=== PATIENT | male | born 1960 | race Caucasian/White ===

== ENCOUNTER 2020-08-13 08:08 | Day surgery (SDC) | payer OTHER ==
[2020-08-12 15:41] VITALS: BMI 27.3
[2020-08-13 08:40] VITALS: TEMP 97.7
[2020-08-13] MEDS ORDERED: KETAMINE HCL 500 MG/10 ML VIAL ONE (09:14)
[2020-08-13 10:41] VITALS: BP 138/79; PULSE 61
== END 2020-08-13 11:40 | disposition home or self-care (01) ==
LOC: FECT 08:08
PROVIDERS: ATTEND Psychiatry & Neurology Psychiatry
PROC: GZB4ZZZ Other Electroconvulsive Therapy (ICD-10-PCS; principal; 2020-08-13 09:00)
DX: F32.9 Major depressive disorder, single episode, unspecified (principal)
CPT/HCPCS: 90870; 94760; C9803; U0003

== ENCOUNTER 2020-08-16 08:37 | Day surgery (SDC) | payer OTHER ==
[2020-08-13 14:33] VITALS: BMI 27.3
[2020-08-16] MEDS ORDERED: KETAMINE HCL 500 MG/10 ML VIAL ONE (10:17)
[2020-08-16 11:36] VITALS: TEMP 98.1
[2020-08-16 11:41] VITALS: BP 144/94; PULSE 61
== END 2020-08-16 11:45 | disposition home or self-care (01) ==
LOC: FECT 08:37
PROVIDERS: ATTEND Psychiatry & Neurology Psychiatry
PROC: GZB4ZZZ Other Electroconvulsive Therapy (ICD-10-PCS; principal; 2020-08-16 11:00)
DX: F32.9 Major depressive disorder, single episode, unspecified (principal)
CPT/HCPCS: 90870; 94760; C9803; U0003

== ENCOUNTER 2020-08-19 10:16 | Day surgery (SDC) | payer OTHER ==
[2020-08-18 14:22] VITALS: BMI 27.3
[2020-08-19] MEDS ORDERED: KETAMINE HCL 500 MG/10 ML VIAL ONE (11:41)
[2020-08-19] MEDS ORDERED: METOPROLOL TARTRATE 5 MG/5 ML VIAL IVPUSH ONE (12:20)
[2020-08-19 14:01] VITALS: TEMP 98
[2020-08-19 14:06] VITALS: BP 160/82; PULSE 56
== END 2020-08-19 13:40 | disposition home or self-care (01) ==
LOC: FECT 10:16
PROVIDERS: ATTEND Psychiatry & Neurology Psychiatry
PROC: GZB4ZZZ Other Electroconvulsive Therapy (ICD-10-PCS; principal; 2020-08-19 11:00)
DX: F32.9 Major depressive disorder, single episode, unspecified (principal)
CPT/HCPCS: 90870; 94760

== ENCOUNTER 2020-08-20 06:47 | Day surgery (SDC) | payer OTHER ==
[2020-08-19 12:04] VITALS: BMI 27.3
[2020-08-20 07:18] VITALS: TEMP 97.6
[2020-08-20] MEDS ORDERED: KETAMINE HCL 500 MG/10 ML VIAL ONE (07:43)
[2020-08-20 09:39] VITALS: BP 129/81; PULSE 66
== END 2020-08-20 09:20 | disposition home or self-care (01) ==
LOC: FECT 06:47
PROVIDERS: ATTEND Psychiatry & Neurology Psychiatry
PROC: GZB4ZZZ Other Electroconvulsive Therapy (ICD-10-PCS; principal; 2020-08-20 08:00)
DX: F32.9 Major depressive disorder, single episode, unspecified (principal)
CPT/HCPCS: 90870; 94760; C9803; U0003

== ENCOUNTER 2020-08-23 09:30 | Day surgery (SDC) | payer OTHER ==
[2020-08-19 12:55] VITALS: BMI 27.3
[2020-08-23] MEDS ORDERED: KETAMINE HCL 500 MG/10 ML VIAL ONE (11:14)
[2020-08-23] MEDS ORDERED: PROPOFOL 20 ML ONE (11:43)
[2020-08-23 13:26] VITALS: BP 154/76; PULSE 65; TEMP 97.9
== END 2020-08-23 13:26 | disposition home or self-care (01) ==
LOC: FECT 09:30
PROVIDERS: ATTEND Psychiatry & Neurology Psychiatry
PROC: GZB4ZZZ Other Electroconvulsive Therapy (ICD-10-PCS; principal; 2020-08-23 10:30)
DX: F32.9 Major depressive disorder, single episode, unspecified (principal)
CPT/HCPCS: 90870; 94760; C9803; U0003

== ENCOUNTER 2020-08-26 09:37 | Day surgery (SDC) | payer OTHER ==
[2020-08-24 18:10] VITALS: BMI 27.3
[2020-08-26 10:00] VITALS: TEMP 98
[2020-08-26] MEDS ORDERED: KETAMINE HCL 200 MG/20 ML VIAL ONE (10:21)
[2020-08-26] MEDS ORDERED: SUCCINYLCHOLINE CHLORIDE 200 MG/10 ML SYRINGE ONE (10:21)
[2020-08-26] MEDS ORDERED: PROPOFOL 20 ML ONE (10:21)
[2020-08-26] MEDS ORDERED: ONDANSETRON 4 MG/2 ML VIAL ONE (10:23)
[2020-08-26 11:46] VITALS: BP 145/90; PULSE 61
== END 2020-08-26 11:40 | disposition home or self-care (01) ==
LOC: FECT 09:37
PROVIDERS: ATTEND Psychiatry & Neurology Psychiatry
PROC: GZB4ZZZ Other Electroconvulsive Therapy (ICD-10-PCS; principal; 2020-08-26 10:30)
DX: F32.9 Major depressive disorder, single episode, unspecified (principal)
CPT/HCPCS: 90870; 94760; C9803; U0003

== ENCOUNTER 2020-08-30 08:24 | Day surgery (SDC) | payer OTHER ==
[2020-08-26 12:03] VITALS: BMI 27.3
[2020-08-30] MEDS ORDERED: KETAMINE HCL 500 MG/10 ML VIAL ONE (09:21)
[2020-08-30 11:03] VITALS: TEMP 97.5
[2020-08-30 11:04] VITALS: BP 140/88; PULSE 58
== END 2020-08-30 11:15 | disposition home or self-care (01) ==
LOC: FECT 08:24
PROVIDERS: ATTEND Psychiatry & Neurology Psychiatry
PROC: GZB4ZZZ Other Electroconvulsive Therapy (ICD-10-PCS; principal; 2020-08-30 09:30)
DX: F33.2 Major depressive disorder, recurrent severe without psychotic features (principal)
CPT/HCPCS: 90870; 94760; C9803; U0003

== ENCOUNTER 2020-09-02 06:47 | Day surgery (SDC) | payer OTHER ==
[2020-08-27 17:31] VITALS: BMI 27.3
[2020-09-02] MEDS ORDERED: PROPOFOL 20 ML ONE (07:59)
[2020-09-02] MEDS ORDERED: KETAMINE HCL 500 MG/10 ML VIAL ONE (07:59)
[2020-09-02] MEDS ORDERED: SUCCINYLCHOLINE CHLORIDE 200 MG/10 ML SYRINGE ONE (07:59)
[2020-09-02 08:57] VITALS: TEMP 98.2
[2020-09-02 09:27] VITALS: BP 132/82; PULSE 62
[2020-09-02] MEDS ORDERED: ONDANSETRON 4 MG/2 ML VIAL IVPUSH PRN (10:44)
[2020-09-02] MEDS ORDERED: LACTATED RINGERS SOLUTION 1,000 ML IV SCH (10:45)
== END 2020-09-02 09:29 | disposition home or self-care (01) ==
LOC: FECT 06:47
PROVIDERS: ATTEND Psychiatry & Neurology Psychiatry
PROC: GZB4ZZZ Other Electroconvulsive Therapy (ICD-10-PCS; principal; 2020-09-02 09:30)
DX: F32.9 Major depressive disorder, single episode, unspecified (principal)
CPT/HCPCS: 90870; 94760; C9803; U0003

== ENCOUNTER 2020-09-06 07:09 | Day surgery (SDC) | payer OTHER ==
[2020-08-31 11:04] VITALS: BMI 27.3
[~2020-09-06 07:09] MED LIST: ACETAMINOPHEN 325 MG TABLET (FP) PO PRN; LACTATED RINGERS SOLUTION 1,000 ML IV SCH; PROMETHAZINE HCL 25 MG/1 ML VIAL IVPUSH PRN
[2020-09-06] MEDS ORDERED: KETAMINE HCL 500 MG/10 ML VIAL ONE (08:51)
[2020-09-06] MEDS ORDERED: ONDANSETRON 4 MG/2 ML VIAL ONE (08:57)
[2020-09-06 10:19] VITALS: TEMP 98
[2020-09-06 10:27] VITALS: BP 141/80; PULSE 50
== END 2020-09-06 10:35 | disposition home or self-care (01) ==
LOC: FECT 07:09
PROVIDERS: ATTEND Psychiatry & Neurology Psychiatry
PROC: GZB4ZZZ Other Electroconvulsive Therapy (ICD-10-PCS; principal; 2020-09-06 08:00)
DX: F32.9 Major depressive disorder, single episode, unspecified (principal)
CPT/HCPCS: 90870; 94760; C9803; U0003

== ENCOUNTER 2020-09-09 06:50 | Day surgery (SDC) | payer OTHER ==
[2020-09-01 13:54] VITALS: BMI 27.3
[2020-09-09] MEDS ORDERED: KETAMINE HCL 500 MG/10 ML VIAL ONE (07:41)
[2020-09-09 09:57] VITALS: TEMP 97.8
[2020-09-09 10:00] VITALS: BP 130/86; PULSE 56
[2020-09-09] MEDS ORDERED: ONDANSETRON 4 MG/2 ML VIAL IVPUSH PRN (11:11)
[2020-09-09] MEDS ORDERED: LACTATED RINGERS SOLUTION 1,000 ML IV SCH (11:15)
== END 2020-09-09 10:02 | disposition home or self-care (01) ==
LOC: FECT 06:50
PROVIDERS: ATTEND Psychiatry & Neurology Psychiatry
PROC: GZB4ZZZ Other Electroconvulsive Therapy (ICD-10-PCS; principal; 2020-09-09 07:30)
DX: F33.2 Major depressive disorder, recurrent severe without psychotic features (principal)
CPT/HCPCS: 90870; 94760; C9803; U0003

== ENCOUNTER 2020-09-13 07:37 | Day surgery (SDC) | payer OTHER ==
[2020-09-06 14:12] VITALS: BMI 27.3
[2020-09-13] MEDS ORDERED: KETAMINE HCL 500 MG/10 ML VIAL ONE (09:35)
[2020-09-13] MEDS ORDERED: GLYCOPYRROLATE 0.2 MG/1 ML VIAL ONE (10:08)
[2020-09-13 11:18] VITALS: TEMP 97.8
[2020-09-13 11:53] VITALS: BP 144/76; PULSE 55
== END 2020-09-13 11:45 | disposition home or self-care (01) ==
LOC: FECT 07:37
PROVIDERS: ATTEND Psychiatry & Neurology Psychiatry
PROC: GZB4ZZZ Other Electroconvulsive Therapy (ICD-10-PCS; principal; 2020-09-13 07:30)
DX: F32.9 Major depressive disorder, single episode, unspecified (principal)
CPT/HCPCS: 90870; 94760; C9803; U0003

== ENCOUNTER 2020-09-17 06:31 | Day surgery (SDC) | payer OTHER ==
[2020-09-13 11:55] VITALS: BMI 27.3
[2020-09-17] MEDS ORDERED: KETAMINE HCL 500 MG/10 ML VIAL ONE (06:52)
[2020-09-17 06:55] VITALS: TEMP 97.8
[2020-09-17] MEDS ORDERED: GLYCOPYRROLATE 0.2 MG/1 ML VIAL ONE (07:14)
[2020-09-17] MEDS ORDERED: PROPOFOL 20 ML ONE (07:15)
[2020-09-17] MEDS ORDERED: SUCCINYLCHOLINE CHLORIDE 200 MG/10 ML SYRINGE ONE ×2 (07:16→07:47)
[2020-09-17 09:11] VITALS: BP 135/84; PULSE 59
== END 2020-09-17 08:40 | disposition home or self-care (01) ==
LOC: FECT 06:31
PROVIDERS: ATTEND Psychiatry & Neurology Psychiatry
PROC: GZB4ZZZ Other Electroconvulsive Therapy (ICD-10-PCS; principal; 2020-09-17 07:00)
DX: F32.9 Major depressive disorder, single episode, unspecified (principal)
CPT/HCPCS: 90870; 94760; C9803; U0003

== ENCOUNTER 2020-09-23 07:07 | Day surgery (SDC) | payer OTHER ==
[2020-09-17 07:20] VITALS: BMI 27.3
[2020-09-23 07:39] VITALS: TEMP 98.1
[2020-09-23] MEDS ORDERED: SUCCINYLCHOLINE CHLORIDE 200 MG/10 ML SYRINGE ONE ×2 (08:49)
[2020-09-23] MEDS ORDERED: KETAMINE HCL 500 MG/10 ML VIAL ONE (08:49)
[2020-09-23] MEDS ORDERED: PROPOFOL 20 ML ONE (08:49)
[2020-09-23] MEDS ORDERED: ONDANSETRON 4 MG/2 ML VIAL ONE (09:03)
[2020-09-23 10:27] VITALS: BP 148/86; PULSE 60
== END 2020-09-23 10:29 | disposition home or self-care (01) ==
LOC: FECT 07:07
PROVIDERS: ATTEND Psychiatry & Neurology Psychiatry
PROC: GZB4ZZZ Other Electroconvulsive Therapy (ICD-10-PCS; principal; 2020-09-23 08:30)
DX: F32.9 Major depressive disorder, single episode, unspecified (principal)
CPT/HCPCS: 90870; 94760; C9803; U0003

== ENCOUNTER 2020-09-28 07:12 | Day surgery (SDC) | payer OTHER ==
[2020-09-17 07:23] VITALS: BMI 27.3
[2020-09-28] MEDS ORDERED: PROPOFOL 20 ML ONE (08:35)
[2020-09-28] MEDS ORDERED: KETAMINE HCL 500 MG/10 ML VIAL ONE (08:36)
[2020-09-28 09:48] VITALS: TEMP 97.5
[2020-09-28 09:55] VITALS: BP 139/89; PULSE 53
== END 2020-09-28 10:00 | disposition home or self-care (01) ==
LOC: FECT 07:12
PROVIDERS: ATTEND Psychiatry & Neurology Psychiatry
PROC: GZB4ZZZ Other Electroconvulsive Therapy (ICD-10-PCS; principal; 2020-09-28 08:00)
DX: F32.9 Major depressive disorder, single episode, unspecified (principal)
CPT/HCPCS: 90870; 94760; C9803; U0003

== ENCOUNTER 2020-09-30 07:34 | Day surgery (SDC) | payer OTHER ==
[2020-09-23 15:51] VITALS: BMI 27.3
[2020-09-30] MEDS ORDERED: KETAMINE HCL 500 MG/10 ML VIAL ONE (08:30)
[2020-09-30 09:39] VITALS: TEMP 97.6
[2020-09-30 10:06] VITALS: PULSE 56
[2020-09-30 10:18] VITALS: BP 139/62
== END 2020-09-30 10:18 | disposition home or self-care (01) ==
LOC: FECT 07:34
PROVIDERS: ATTEND Psychiatry & Neurology Psychiatry
PROC: GZB4ZZZ Other Electroconvulsive Therapy (ICD-10-PCS; principal; 2020-09-30 08:30)
DX: F31.89 Other bipolar disorder (principal)
CPT/HCPCS: 90870; 94760; C9803; U0003

== ENCOUNTER 2020-10-04 08:11 | Day surgery (SDC) | payer OTHER ==
[2020-10-04 08:34] VITALS: BMI 27.3
[2020-10-04] MEDS ORDERED: KETAMINE HCL 500 MG/10 ML VIAL ONE (08:45)
[2020-10-04 10:00] VITALS: TEMP 97.8
[2020-10-04 10:50] VITALS: BP 124/72; PULSE 62
== END 2020-10-04 10:40 | disposition home or self-care (01) ==
LOC: FECT 08:11
PROVIDERS: ATTEND Psychiatry & Neurology Psychiatry
PROC: GZB4ZZZ Other Electroconvulsive Therapy (ICD-10-PCS; principal; 2020-10-04 09:00)
DX: F32.9 Major depressive disorder, single episode, unspecified (principal)
CPT/HCPCS: 90870; 94760; C9803; U0003

== ENCOUNTER 2020-10-07 08:42 | Day surgery (SDC) | payer OTHER ==
[2020-10-07 09:09] VITALS: BMI 27.3
[2020-10-07] MEDS ORDERED: KETAMINE HCL 500 MG/10 ML VIAL ONE (09:52)
[2020-10-07] MEDS ORDERED: SUCCINYLCHOLINE CHLORIDE 200 MG/10 ML SYRINGE ONE (09:55)
[2020-10-07] MEDS ORDERED: PROPOFOL 20 ML ONE (09:55)
[2020-10-07] MEDS ORDERED: ONDANSETRON 4 MG/2 ML VIAL ONE (09:56)
[2020-10-07 12:32] VITALS: PULSE 50; TEMP 97.5
[2020-10-07] MEDS ORDERED: ACETAMINOPHEN 325 MG TABLET (FP) PO PRN (13:07)
[2020-10-07] MEDS ORDERED: LACTATED RINGERS SOLUTION 1,000 ML IV SCH (13:15)
[2020-10-07 13:36] VITALS: BP 115/74
== END 2020-10-07 11:45 | disposition home or self-care (01) ==
LOC: FECT 08:42
PROVIDERS: ATTEND Psychiatry & Neurology Psychiatry
PROC: GZB4ZZZ Other Electroconvulsive Therapy (ICD-10-PCS; principal; 2020-10-07 09:30)
DX: F31.9 Bipolar disorder, unspecified (principal)
CPT/HCPCS: 90870; 94760; C9803; U0003

== ENCOUNTER 2020-10-14 07:11 | Day surgery (SDC) | payer OTHER ==
[2020-10-14 07:45] VITALS: BMI 27.3
[2020-10-14] MEDS ORDERED: KETAMINE HCL 500 MG/10 ML VIAL ONE (08:41)
[2020-10-14 09:47] VITALS: PULSE 61
[2020-10-14 10:08] VITALS: BP 133/71; TEMP 98
== END 2020-10-14 10:23 | disposition home or self-care (01) ==
LOC: FECT 07:11
PROVIDERS: ATTEND Psychiatry & Neurology Psychiatry
PROC: GZB4ZZZ Other Electroconvulsive Therapy (ICD-10-PCS; principal; 2020-10-14 08:30)
DX: F32.9 Major depressive disorder, single episode, unspecified (principal)
CPT/HCPCS: 90870; 94760; C9803; U0003

== ENCOUNTER 2020-10-18 09:44 | Day surgery (SDC) | payer OTHER ==
[2020-10-18 10:30] VITALS: BMI 29.0
[2020-10-18] MEDS ORDERED: KETAMINE HCL 500 MG/10 ML VIAL ONE (11:16)
[2020-10-18 12:45] VITALS: TEMP 97.4
[2020-10-18 12:53] VITALS: BP 128/72; PULSE 51
== END 2020-10-18 13:23 | disposition home or self-care (01) ==
LOC: FECT 09:44
PROVIDERS: ATTEND Psychiatry & Neurology Psychiatry
PROC: GZB4ZZZ Other Electroconvulsive Therapy (ICD-10-PCS; principal; 2020-10-18 10:30)
DX: F32.9 Major depressive disorder, single episode, unspecified (principal)
CPT/HCPCS: 90870; 94760; C9803; U0003

== ENCOUNTER 2020-10-22 06:35 | Day surgery (SDC) | payer OTHER ==
[2020-10-22 07:21] VITALS: BMI 29.0
[2020-10-22] MEDS ORDERED: KETAMINE HCL 500 MG/10 ML VIAL ONE (07:50)
[2020-10-22] MEDS ORDERED: GLYCOPYRROLATE 0.2 MG/1 ML VIAL ONE (08:17)
[2020-10-22 08:51] VITALS: TEMP 97.5
[2020-10-22 09:45] VITALS: BP 132/84; PULSE 56
== END 2020-10-22 09:45 | disposition home or self-care (01) ==
LOC: FECT 06:35
PROVIDERS: ATTEND Psychiatry & Neurology Psychiatry
PROC: GZB4ZZZ Other Electroconvulsive Therapy (ICD-10-PCS; principal; 2020-10-22 08:30)
DX: F32.9 Major depressive disorder, single episode, unspecified (principal)
CPT/HCPCS: 90870; 94760; C9803; U0003

== ENCOUNTER 2020-10-26 05:49 | Day surgery (SDC) | payer OTHER ==
[2020-10-26 07:57] VITALS: BMI 29.0
[2020-10-26] MEDS ORDERED: KETAMINE HCL 500 MG/10 ML VIAL ONE (09:06)
[2020-10-26 10:02] VITALS: TEMP 97.6
[2020-10-26 10:47] VITALS: BP 131/78; PULSE 52
== END 2020-10-26 10:45 | disposition home or self-care (01) ==
LOC: FECT 05:49
PROVIDERS: ATTEND Psychiatry & Neurology Psychiatry
PROC: GZB4ZZZ Other Electroconvulsive Therapy (ICD-10-PCS; principal; 2020-10-26 07:30)
DX: F32.9 Major depressive disorder, single episode, unspecified (principal)
CPT/HCPCS: 90870; 94760; C9803; U0003

== ENCOUNTER 2020-10-28 05:49 | Day surgery (SDC) | payer OTHER ==
[2020-10-26 09:47] VITALS: BMI 29.0
[2020-10-28] MEDS ORDERED: KETAMINE HCL 500 MG/10 ML VIAL ONE (08:37)
[2020-10-28 09:08] VITALS: TEMP 97.5
[2020-10-28 10:06] VITALS: BP 129/78; PULSE 54
== END 2020-10-28 10:10 | disposition home or self-care (01) ==
LOC: FECT 05:49
PROVIDERS: ATTEND Psychiatry & Neurology Psychiatry
PROC: GZB4ZZZ Other Electroconvulsive Therapy (ICD-10-PCS; principal; 2020-10-28 08:00)
DX: F31.9 Bipolar disorder, unspecified (principal)
CPT/HCPCS: 90870; 94760; C9803; U0003

== ENCOUNTER 2020-11-01 08:13 | Day surgery (SDC) | payer OTHER ==
[2020-11-01 08:43] VITALS: BMI 29.0
[2020-11-01] MEDS ORDERED: KETAMINE HCL 500 MG/10 ML VIAL ONE (09:26)
[2020-11-01 11:06] VITALS: TEMP 97.6
[2020-11-01 11:19] VITALS: BP 130/77; PULSE 53
== END 2020-11-01 11:30 | disposition home or self-care (01) ==
LOC: FECT 08:13
PROVIDERS: ATTEND Psychiatry & Neurology Psychiatry
PROC: GZB4ZZZ Other Electroconvulsive Therapy (ICD-10-PCS; principal; 2020-11-01 10:00)
DX: F31.60 Bipolar disorder, current episode mixed, unspecified (principal)
CPT/HCPCS: 90870; 94760; C9803; U0003

== ENCOUNTER 2020-11-05 06:32 | Day surgery (SDC) | payer OTHER ==
[2020-10-28 11:34] VITALS: BMI 29.0
[2020-11-05] MEDS ORDERED: KETAMINE HCL 500 MG/10 ML VIAL ONE (07:56)
[2020-11-05 08:43] VITALS: TEMP 98.3
[2020-11-05 09:34] VITALS: BP 105/64; PULSE 60
== END 2020-11-05 09:40 | disposition home or self-care (01) ==
LOC: FECT 06:32
PROVIDERS: ATTEND Psychiatry & Neurology Psychiatry
PROC: GZB4ZZZ Other Electroconvulsive Therapy (ICD-10-PCS; principal; 2020-11-05 08:00)
DX: F32.9 Major depressive disorder, single episode, unspecified (principal)
CPT/HCPCS: 90870; 94760; C9803; U0003

== ENCOUNTER 2020-11-08 07:09 | Day surgery (SDC) | payer OTHER ==
[2020-11-08 07:40] VITALS: BMI 29.0
[2020-11-08] MEDS ORDERED: KETAMINE HCL 500 MG/10 ML VIAL ONE (09:02)
[2020-11-08] MEDS ORDERED: GLYCOPYRROLATE 0.2 MG/1 ML VIAL ONE (09:10)
[2020-11-08 11:37] VITALS: BP 142/78; PULSE 54; TEMP 98.2
[2020-11-08] MEDS ORDERED: LACTATED RINGERS SOLUTION 1,000 ML IV SCH (12:00)
== END 2020-11-08 11:00 | disposition home or self-care (01) ==
LOC: FECT 07:09
PROVIDERS: ATTEND Psychiatry & Neurology Psychiatry
PROC: GZB4ZZZ Other Electroconvulsive Therapy (ICD-10-PCS; principal; 2020-11-08 09:30)
DX: F32.9 Major depressive disorder, single episode, unspecified (principal)
CPT/HCPCS: 90870; 94760

== ENCOUNTER 2020-11-15 07:13 | Day surgery (SDC) | payer OTHER ==
[2020-11-15 07:42] VITALS: BMI 29.0
[2020-11-15] MEDS ORDERED: KETAMINE HCL 500 MG/10 ML VIAL ONE (08:21)
[2020-11-15 09:23] VITALS: PULSE 55; TEMP 98
[2020-11-15 09:47] VITALS: BP 138/81
== END 2020-11-15 09:45 | disposition home or self-care (01) ==
LOC: FECT 07:13
PROVIDERS: ATTEND Psychiatry & Neurology Psychiatry
PROC: GZB4ZZZ Other Electroconvulsive Therapy (ICD-10-PCS; principal; 2020-11-15 09:30)
DX: F31.9 Bipolar disorder, unspecified (principal)
CPT/HCPCS: 90870; 94760

== ENCOUNTER 2020-12-06 09:46 | Day surgery (SDC) | payer OTHER ==
[2020-11-17 15:35] VITALS: BMI 29.0
[2020-12-06] MEDS ORDERED: ACETAMINOPHEN 500 MG TABLET (FP) PO PRN (10:22)
[2020-12-06] MEDS ORDERED: PROMETHAZINE HCL 25 MG/1 ML VIAL IVPUSH PRN (10:22)
[2020-12-06] MEDS ORDERED: LACTATED RINGERS SOLUTION 1,000 ML IV SCH (10:30)
[2020-12-06] MEDS ORDERED: KETAMINE HCL 500 MG/10 ML VIAL ONE (10:44)
[2020-12-06 12:08] VITALS: BP 148/87
[2020-12-06 12:24] VITALS: PULSE 55; TEMP 98
== END 2020-12-06 12:55 | disposition home or self-care (01) ==
LOC: FECT 09:46
PROVIDERS: ATTEND Psychiatry & Neurology Psychiatry
PROC: GZB4ZZZ Other Electroconvulsive Therapy (ICD-10-PCS; principal; 2020-12-06 11:00)
DX: F31.9 Bipolar disorder, unspecified (principal)
CPT/HCPCS: 90870; 94760

== ENCOUNTER 2020-12-13 08:35 | Day surgery (SDC) | payer OTHER ==
[2020-12-13 09:23] VITALS: TEMP 97.9; BMI 29.0
[2020-12-13] MEDS ORDERED: LISINOPRIL 10 MG TABLET PO ONE (11:15)
[2020-12-13 11:56] VITALS: BP 146/89; PULSE 57
== END 2020-12-13 11:40 | disposition home or self-care (01) ==
LOC: FECT 08:35
PROVIDERS: ATTEND Psychiatry & Neurology Psychiatry
PROC: GZB4ZZZ Other Electroconvulsive Therapy (ICD-10-PCS; principal; 2020-12-13 10:00)
DX: F31.9 Bipolar disorder, unspecified (principal)
CPT/HCPCS: 90870; 94760

== ENCOUNTER 2020-12-20 08:54 | Day surgery (SDC) | payer OTHER ==
[2020-12-14 16:22] VITALS: BMI 29.0
[2020-12-20 09:15] VITALS: TEMP 97.6
[2020-12-20] MEDS ORDERED: KETAMINE HCL 500 MG/10 ML VIAL ONE (09:41)
[2020-12-20] MEDS ORDERED: PROPOFOL 20 ML ONE (09:48)
[2020-12-20] MEDS ORDERED: SUCCINYLCHOLINE CHLORIDE 200 MG/10 ML SYRINGE ONE (09:50)
[2020-12-20] MEDS ORDERED: ONDANSETRON 4 MG/2 ML VIAL IVPUSH PRN (11:05)
[2020-12-20] MEDS ORDERED: LACTATED RINGERS SOLUTION 1,000 ML IV SCH (11:15)
[2020-12-20 11:20] VITALS: BP 108/84; PULSE 48
== END 2020-12-20 11:30 | disposition home or self-care (01) ==
LOC: FECT 08:54
PROVIDERS: ATTEND Psychiatry & Neurology Psychiatry
PROC: GZB4ZZZ Other Electroconvulsive Therapy (ICD-10-PCS; principal; 2020-12-20 10:30)
DX: F31.9 Bipolar disorder, unspecified (principal)
CPT/HCPCS: 90870; 94760

== ENCOUNTER 2020-12-27 08:15 | Day surgery (SDC) | payer OTHER ==
[2020-12-27 08:41] VITALS: BMI 30.2
[2020-12-27] MEDS ORDERED: KETAMINE HCL 500 MG/10 ML VIAL ONE (09:05)
[2020-12-27] MEDS ORDERED: GLYCOPYRROLATE 0.2 MG/1 ML VIAL ONE (09:07)
[2020-12-27 10:13] VITALS: TEMP 97.9
[2020-12-27 10:31] VITALS: BP 119/77; PULSE 53
== END 2020-12-27 10:55 | disposition home or self-care (01) ==
LOC: FECT 08:15
PROVIDERS: ATTEND Psychiatry & Neurology Psychiatry
PROC: GZB4ZZZ Other Electroconvulsive Therapy (ICD-10-PCS; principal; 2020-12-27 09:00)
DX: F31.9 Bipolar disorder, unspecified (principal)
CPT/HCPCS: 90870; 94760

== ENCOUNTER 2021-01-03 07:44 | Day surgery (SDC) | payer OTHER ==
[2021-01-03 08:15] VITALS: BMI 30.2
[2021-01-03] MEDS ORDERED: KETAMINE HCL 500 MG/10 ML VIAL ONE (09:07)
[2021-01-03 10:27] VITALS: TEMP 97.4
[2021-01-03 10:48] VITALS: BP 122/74; PULSE 54
[2021-01-04 08:07] LABS: SARS-CoV-2 NAA Not Detected (Not Detected)
== END 2021-01-03 10:45 | disposition home or self-care (01) ==
LOC: FECT 07:44
PROVIDERS: ATTEND Psychiatry & Neurology Psychiatry
PROC: GZB4ZZZ Other Electroconvulsive Therapy (ICD-10-PCS; principal; 2021-01-03 10:00)
DX: F31.9 Bipolar disorder, unspecified (principal)
CPT/HCPCS: 90870; 94760; C9803; U0003; U0005

== ENCOUNTER 2021-01-06 06:43 | Day surgery (SDC) | payer OTHER ==
[2021-01-05 14:49] VITALS: BMI 30.2
[2021-01-06 07:07] VITALS: TEMP 97.3
[2021-01-06] MEDS ORDERED: KETAMINE HCL 500 MG/10 ML VIAL ONE (07:42)
[2021-01-06 10:18] VITALS: BP 141/79; PULSE 64
[2021-01-06] MEDS ORDERED: ACETAMINOPHEN 325 MG TABLET (FP) PO PRN (10:23)
[2021-01-06] MEDS ORDERED: ONDANSETRON 4 MG/2 ML VIAL IVPUSH PRN (10:23)
[2021-01-06] MEDS ORDERED: LACTATED RINGERS SOLUTION 1,000 ML IV SCH (10:30)
[2021-01-07 10:08] LABS: SARS-CoV-2 NAA Not Detected (Not Detected)
== END 2021-01-06 10:00 | disposition home or self-care (01) ==
LOC: FECT 06:43
PROVIDERS: ATTEND Psychiatry & Neurology Psychiatry
PROC: GZB4ZZZ Other Electroconvulsive Therapy (ICD-10-PCS; principal; 2021-01-06 10:00)
DX: F31.9 Bipolar disorder, unspecified (principal)
CPT/HCPCS: 90870; 94760; C9803; U0003; U0005

== ENCOUNTER → 2021-01-10 | Day surgery (SDC) | payer OTHER ==
[2021-01-06 16:35] VITALS: BMI 30.2
[~2021-01-10] MED LIST changes: -ACETAMINOPHEN 325 MG TABLET (FP) PO PRN; +KETAMINE HCL 500 MG/10 ML VIAL ONE; -LACTATED RINGERS SOLUTION 1,000 ML IV SCH; +ONDANSETRON 4 MG/2 ML VIAL ONE; -PROMETHAZINE HCL 25 MG/1 ML VIAL IVPUSH PRN; +PROPOFOL 20 ML ONE; +SUCCINYLCHOLINE CHLORIDE 200 MG/10 ML SYRINGE ONE
[2021-01-10 10:19] VITALS: TEMP 98.2
[2021-01-10 11:21] VITALS: BP 126/74; PULSE 52
[2021-01-11 12:07] LABS: SARS-CoV-2 NAA Not Detected (Not Detected)
== END | disposition home or self-care (01) ==
LOC: FECT 07:39
PROVIDERS: ATTEND Psychiatry & Neurology Psychiatry
PROC: GZB4ZZZ Other Electroconvulsive Therapy (ICD-10-PCS; principal; 2021-01-10 09:30)
DX: F31.9 Bipolar disorder, unspecified (principal)
CPT/HCPCS: 90870; 94760; C9803; U0003; U0005

== ENCOUNTER 2021-01-13 07:06 | Day surgery (SDC) | payer OTHER ==
[2021-01-10 08:04] VITALS: BMI 30.2
[2021-01-13 08:09] VITALS: TEMP 97.3
[2021-01-13] MEDS ORDERED: KETAMINE HCL 500 MG/10 ML VIAL ONE (10:47)
[2021-01-13 12:33] VITALS: BP 121/71; PULSE 85
[2021-01-14 08:08] LABS: SARS-CoV-2 NAA Not Detected (Not Detected)
== END 2021-01-13 12:15 | disposition home or self-care (01) ==
LOC: FECT 07:06
PROVIDERS: ATTEND Psychiatry & Neurology Psychiatry
PROC: GZB4ZZZ Other Electroconvulsive Therapy (ICD-10-PCS; principal; 2021-01-13 11:00)
DX: F31.9 Bipolar disorder, unspecified (principal)
CPT/HCPCS: 90870; 94760; C9803; U0003; U0005

== ENCOUNTER 2021-01-17 07:54 | Day surgery (SDC) | payer OTHER ==
[2021-01-11 07:34] VITALS: BMI 29.0
[2021-01-17] MEDS ORDERED: PROPOFOL 20 ML ONE (08:41)
[2021-01-17] MEDS ORDERED: KETAMINE HCL 500 MG/10 ML VIAL ONE (08:58)
[2021-01-17] MEDS ORDERED: ONDANSETRON 4 MG/2 ML VIAL ONE (09:00)
[2021-01-17 10:00] VITALS: TEMP 97.5
[2021-01-17 10:13] VITALS: BP 130/81; PULSE 51
[2021-01-18 08:09] LABS: SARS-CoV-2 NAA Not Detected (Not Detected)
== END 2021-01-17 11:05 | disposition home or self-care (01) ==
LOC: FECT 07:54
PROVIDERS: ATTEND Psychiatry & Neurology Psychiatry
PROC: GZB4ZZZ Other Electroconvulsive Therapy (ICD-10-PCS; principal; 2021-01-17 09:30)
DX: F31.9 Bipolar disorder, unspecified (principal)
CPT/HCPCS: 90870; 94760; C9803; U0003; U0005

== ENCOUNTER 2021-01-20 07:22 | Day surgery (SDC) | payer OTHER ==
[2021-01-20 07:53] VITALS: BMI 29.0
[2021-01-20] MEDS ORDERED: KETAMINE HCL 500 MG/10 ML VIAL ONE (09:09)
[2021-01-20 09:44] VITALS: TEMP 97.7
[2021-01-20 10:50] VITALS: BP 129/79; PULSE 56
[2021-01-21 07:07] LABS: SARS-CoV-2 NAA Not Detected (Not Detected)
== END 2021-01-20 10:40 | disposition home or self-care (01) ==
LOC: FECT 07:22
PROVIDERS: ATTEND Psychiatry & Neurology Psychiatry
PROC: GZB4ZZZ Other Electroconvulsive Therapy (ICD-10-PCS; principal; 2021-01-20 08:00)
DX: F31.9 Bipolar disorder, unspecified (principal)
CPT/HCPCS: 90870; 94760; C9803; U0003; U0005

== ENCOUNTER 2021-01-24 08:29 | Day surgery (SDC) | payer OTHER ==
[2021-01-18 07:16] VITALS: BMI 29.0
[2021-01-24] MEDS ORDERED: KETAMINE HCL 500 MG/10 ML VIAL ONE (09:39)
[2021-01-24 10:52] VITALS: TEMP 97.3
[2021-01-24 11:21] VITALS: BP 130/81; PULSE 51
[2021-01-25 07:07] LABS: SARS-CoV-2 NAA Not Detected (Not Detected)
== END 2021-01-24 11:30 | disposition home or self-care (01) ==
LOC: FECT 08:29
PROVIDERS: ATTEND Psychiatry & Neurology Psychiatry
PROC: GZB4ZZZ Other Electroconvulsive Therapy (ICD-10-PCS; principal; 2021-01-24 08:00)
DX: F31.9 Bipolar disorder, unspecified (principal)
CPT/HCPCS: 90870; 94760; C9803; U0003; U0005

== ENCOUNTER 2021-01-27 08:42 | Day surgery (SDC) | payer OTHER ==
[2021-01-18 07:22] VITALS: BMI 29.0
[2021-01-27] MEDS ORDERED: KETAMINE HCL 500 MG/10 ML VIAL ONE (10:07)
[2021-01-27] MEDS ORDERED: GLYCOPYRROLATE 0.2 MG/1 ML VIAL ONE (10:16)
[2021-01-27 11:48] VITALS: BP 122/63; TEMP 97.8
[2021-01-27 11:49] VITALS: PULSE 56
== END 2021-01-27 11:45 | disposition home or self-care (01) ==
LOC: FECT 08:42
PROVIDERS: ATTEND Psychiatry & Neurology Psychiatry
PROC: GZB4ZZZ Other Electroconvulsive Therapy (ICD-10-PCS; principal; 2021-01-27 09:15)
DX: F31.9 Bipolar disorder, unspecified (principal)
CPT/HCPCS: 90870; 94760

== ENCOUNTER 2021-02-11 06:28 | Day surgery (SDC) | payer OTHER ==
[2021-02-11 07:32] VITALS: BMI 29.9
[2021-02-11] MEDS ORDERED: KETAMINE HCL 500 MG/10 ML VIAL ONE (08:44)
[2021-02-11] MEDS ORDERED: GLYCOPYRROLATE 0.2 MG/1 ML VIAL ONE (08:50)
[2021-02-11 09:17] VITALS: TEMP 98.2
[2021-02-11 10:00] VITALS: BP 125/76; PULSE 54
[2021-02-11] MEDS ORDERED: PROMETHAZINE HCL 25 MG/1 ML VIAL IVPUSH PRN (10:23)
[2021-02-11] MEDS ORDERED: ACETAMINOPHEN 500 MG TABLET (FP) PO PRN (10:23)
[2021-02-11] MEDS ORDERED: LACTATED RINGERS SOLUTION 1,000 ML IV SCH (10:30)
== END 2021-02-11 10:05 | disposition home or self-care (01) ==
LOC: FECT 06:28
PROVIDERS: ATTEND Psychiatry & Neurology Psychiatry
PROC: GZB4ZZZ Other Electroconvulsive Therapy (ICD-10-PCS; principal; 2021-02-11 08:00)
DX: F31.63 Bipolar disorder, current episode mixed, severe, without psychotic features (principal)
CPT/HCPCS: 90870; 94760

== ENCOUNTER 2021-02-14 06:36 | Day surgery (SDC) | payer OTHER ==
[2021-02-11 13:40] VITALS: BMI 29.9
[2021-02-14] MEDS ORDERED: KETAMINE HCL 500 MG/10 ML VIAL ONE (08:04)
[2021-02-14 08:40] VITALS: TEMP 98.4
[2021-02-14 09:46] VITALS: BP 154/86; PULSE 76
== END 2021-02-14 09:35 | disposition home or self-care (01) ==
LOC: FECT 06:36
PROVIDERS: ATTEND Psychiatry & Neurology Psychiatry
PROC: GZB4ZZZ Other Electroconvulsive Therapy (ICD-10-PCS; principal; 2021-02-14 09:00)
DX: F32.9 Major depressive disorder, single episode, unspecified (principal)
CPT/HCPCS: 90870; 94760

== ENCOUNTER → 2021-02-21 | Day surgery (SDC) | payer OTHER ==
[2021-02-14 10:35] VITALS: BMI 29.8
[~2021-02-21] MED LIST changes: -ONDANSETRON 4 MG/2 ML VIAL ONE; -PROPOFOL 20 ML ONE; -SUCCINYLCHOLINE CHLORIDE 200 MG/10 ML SYRINGE ONE
[2021-02-21 12:21] VITALS: PULSE 56; TEMP 98
[2021-02-21 12:36] VITALS: BP 127/75
== END | disposition home or self-care (01) ==
LOC: FECT 09:34
PROVIDERS: ATTEND Psychiatry & Neurology Psychiatry
PROC: GZB4ZZZ Other Electroconvulsive Therapy (ICD-10-PCS; principal; 2021-02-21 11:30)
DX: F32.9 Major depressive disorder, single episode, unspecified (principal)
CPT/HCPCS: 90870; 94760

== ENCOUNTER 2021-02-24 07:30 | Day surgery (SDC) | payer OTHER ==
[2021-02-22 11:39] VITALS: BMI 29.8
[2021-02-24] MEDS ORDERED: KETAMINE HCL 500 MG/10 ML VIAL ONE (08:13)
[2021-02-24 09:30] VITALS: BP 130/77; PULSE 51; TEMP 98.2
== END 2021-02-24 10:00 | disposition home or self-care (01) ==
LOC: FECT 07:30
PROVIDERS: ATTEND Psychiatry & Neurology Psychiatry
PROC: GZB4ZZZ Other Electroconvulsive Therapy (ICD-10-PCS; principal; 2021-02-24 09:30)
DX: F32.9 Major depressive disorder, single episode, unspecified (principal)
CPT/HCPCS: 90870; 94760

== ENCOUNTER 2021-02-28 11:08 | Day surgery (SDC) | payer OTHER ==
[2021-02-25 10:26] VITALS: BMI 29.8
[2021-02-28] MEDS ORDERED: KETAMINE HCL 500 MG/10 ML VIAL ONE (12:22)
[2021-02-28 13:22] VITALS: TEMP 98.2
[2021-02-28 13:58] VITALS: BP 131/71; PULSE 54
== END 2021-02-28 13:50 | disposition home or self-care (01) ==
LOC: FECT 11:08
PROVIDERS: ATTEND Psychiatry & Neurology Psychiatry
PROC: GZB4ZZZ Other Electroconvulsive Therapy (ICD-10-PCS; principal; 2021-02-28 12:30)
DX: F31.63 Bipolar disorder, current episode mixed, severe, without psychotic features (principal)
CPT/HCPCS: 90870; 94760

== ENCOUNTER 2021-03-07 08:47 | Day surgery (SDC) | payer OTHER ==
[2021-03-02 15:15] VITALS: BMI 29.8
[2021-03-07 10:25] VITALS: TEMP 97.8
[2021-03-07] MEDS ORDERED: PROMETHAZINE HCL 25 MG/1 ML VIAL IVPB PRN (10:39)
[2021-03-07] MEDS ORDERED: ACETAMINOPHEN 325 MG TABLET (FP) PO PRN (10:39)
[2021-03-07] MEDS ORDERED: LACTATED RINGERS SOLUTION 1,000 ML IV SCH (10:45)
[2021-03-07] MEDS ORDERED: KETAMINE HCL 500 MG/10 ML VIAL ONE (10:55)
[2021-03-07 12:11] VITALS: PULSE 54
[2021-03-07 12:15] VITALS: BP 129/86
== END 2021-03-07 12:30 | disposition home or self-care (01) ==
LOC: FECT 08:47
PROVIDERS: ATTEND Psychiatry & Neurology Psychiatry
PROC: GZB4ZZZ Other Electroconvulsive Therapy (ICD-10-PCS; principal; 2021-03-07 10:30)
DX: F31.63 Bipolar disorder, current episode mixed, severe, without psychotic features (principal)
CPT/HCPCS: 90870; 94760

== ENCOUNTER → 2021-03-11 | Day surgery (SDC) | payer OTHER ==
[~2021-03-11] MED LIST changes: +PROPOFOL 20 ML ONE
[2021-03-11 08:38] VITALS: BMI 29.8
[2021-03-11 10:25] VITALS: PULSE 80
[2021-03-11 10:39] VITALS: BP 102/71; TEMP 97.7
== END | disposition home or self-care (01) ==
LOC: FECT 08:08
PROVIDERS: ATTEND Psychiatry & Neurology Psychiatry
PROC: GZB4ZZZ Other Electroconvulsive Therapy (ICD-10-PCS; principal; 2021-03-11 09:00)
DX: F31.63 Bipolar disorder, current episode mixed, severe, without psychotic features (principal)
CPT/HCPCS: 90870; 94760

== ENCOUNTER 2021-03-21 08:08 | Day surgery (SDC) | payer OTHER ==
[2021-03-21 08:46] VITALS: BMI 27.3
[2021-03-21] MEDS ORDERED: KETAMINE HCL 500 MG/10 ML VIAL ONE (08:59)
[2021-03-21 10:21] VITALS: TEMP 97.8
[2021-03-21 10:37] VITALS: BP 119/78; PULSE 56
== END 2021-03-21 11:00 | disposition home or self-care (01) ==
LOC: FECT 08:08
PROVIDERS: ATTEND Psychiatry & Neurology Psychiatry
PROC: GZB4ZZZ Other Electroconvulsive Therapy (ICD-10-PCS; principal; 2021-03-21 09:30)
DX: F31.9 Bipolar disorder, unspecified (principal)
CPT/HCPCS: 90870; 94760

== ENCOUNTER 2021-03-25 06:22 | Day surgery (SDC) | payer OTHER ==
[2021-03-25 07:02] VITALS: BMI 27.3
[2021-03-25] MEDS ORDERED: KETAMINE HCL 500 MG/10 ML VIAL ONE (07:46)
[2021-03-25 08:27] VITALS: TEMP 97.2
[2021-03-25 09:28] VITALS: BP 141/90; PULSE 55
== END 2021-03-25 09:30 | disposition home or self-care (01) ==
LOC: FECT 06:22
PROVIDERS: ATTEND Psychiatry & Neurology Psychiatry
PROC: GZB4ZZZ Other Electroconvulsive Therapy (ICD-10-PCS; principal; 2021-03-25 08:00)
DX: F31.9 Bipolar disorder, unspecified (principal)
CPT/HCPCS: 90870; 94760

== ENCOUNTER 2021-03-28 08:07 | Day surgery (SDC) | payer OTHER ==
[2021-03-21 17:19] VITALS: BMI 27.3
[2021-03-28] MEDS ORDERED: KETAMINE HCL 500 MG/10 ML VIAL ONE (09:58)
[2021-03-28 11:07] VITALS: TEMP 97.8
[2021-03-28 11:17] VITALS: BP 128/70
[2021-03-28 11:23] VITALS: PULSE 56
== END 2021-03-28 11:37 | disposition home or self-care (01) ==
LOC: FECT 08:07
PROVIDERS: ATTEND Psychiatry & Neurology Psychiatry
PROC: GZB4ZZZ Other Electroconvulsive Therapy (ICD-10-PCS; principal; 2021-03-28 09:30)
DX: F31.9 Bipolar disorder, unspecified (principal)
CPT/HCPCS: 90870; 94760

== ENCOUNTER 2021-03-31 08:10 | Day surgery (SDC) | payer OTHER ==
[2021-03-25 11:07] VITALS: BMI 27.3
[2021-03-31] MEDS ORDERED: KETAMINE HCL 500 MG/10 ML VIAL ONE (09:21)
[2021-03-31 11:23] VITALS: BP 135/77; PULSE 56; TEMP 98.4
== END 2021-03-31 11:00 | disposition home or self-care (01) ==
LOC: FECT 08:10
PROVIDERS: ATTEND Psychiatry & Neurology Psychiatry
PROC: GZB4ZZZ Other Electroconvulsive Therapy (ICD-10-PCS; principal; 2021-03-31 09:30)
DX: F31.9 Bipolar disorder, unspecified (principal)
CPT/HCPCS: 90870; 94760

== ENCOUNTER 2021-04-04 06:22 | Day surgery (SDC) | payer OTHER ==
[2021-03-29 07:38] VITALS: BMI 27.3
[2021-04-04] MEDS ORDERED: KETAMINE HCL 500 MG/10 ML VIAL ONE (08:37)
[2021-04-04] MEDS ORDERED: GLYCOPYRROLATE 0.2 MG/1 ML VIAL ONE (08:44)
[2021-04-04] MEDS ORDERED: LIDOCAINE HCL/PF 2% SDV 5ML VIAL ONE (08:45)
[2021-04-04 09:46] VITALS: TEMP 98.1
[2021-04-04 10:05] VITALS: BP 139/87; PULSE 56
== END 2021-04-04 10:10 | disposition home or self-care (01) ==
LOC: FECT 06:22
PROVIDERS: ATTEND Psychiatry & Neurology Psychiatry
PROC: GZB4ZZZ Other Electroconvulsive Therapy (ICD-10-PCS; principal; 2021-04-04 08:30)
DX: F31.9 Bipolar disorder, unspecified (principal)
CPT/HCPCS: 90870; 94760

== ENCOUNTER 2021-04-07 06:54 | Day surgery (SDC) | payer OTHER ==
[2021-03-29 08:07] VITALS: BMI 27.3
[2021-04-07] MEDS ORDERED: KETAMINE HCL 500 MG/10 ML VIAL ONE (08:43)
[2021-04-07 10:04] VITALS: TEMP 97.8
[2021-04-07 10:30] VITALS: BP 130/85; PULSE 57
[2021-04-07] MEDS ORDERED: LACTATED RINGERS SOLUTION 1,000 ML IV SCH (11:30)
== END 2021-04-07 10:30 | disposition home or self-care (01) ==
LOC: FECT 06:54
PROVIDERS: ATTEND Psychiatry & Neurology Psychiatry
PROC: GZB4ZZZ Other Electroconvulsive Therapy (ICD-10-PCS; principal; 2021-04-07 09:00)
DX: F32.9 Major depressive disorder, single episode, unspecified (principal)
CPT/HCPCS: 90870; 94760

== ENCOUNTER 2021-04-11 07:35 | Day surgery (SDC) | payer OTHER ==
[2021-04-04 14:36] VITALS: BMI 27.3
[2021-04-11] MEDS ORDERED: KETAMINE HCL 500 MG/10 ML VIAL ONE (08:56)
[2021-04-11 09:37] VITALS: TEMP 98
[2021-04-11 10:47] VITALS: BP 133/83; PULSE 55
== END 2021-04-11 10:50 | disposition home or self-care (01) ==
LOC: FECT 07:35
PROVIDERS: ATTEND Psychiatry & Neurology Psychiatry
PROC: GZB4ZZZ Other Electroconvulsive Therapy (ICD-10-PCS; principal; 2021-04-11 10:00)
DX: F31.9 Bipolar disorder, unspecified (principal)
CPT/HCPCS: 90870; 94760

== ENCOUNTER 2021-04-14 06:44 | Day surgery (SDC) | payer OTHER ==
[2021-04-04 15:33] VITALS: BMI 27.3
[2021-04-14] MEDS ORDERED: KETAMINE HCL 500 MG/10 ML VIAL ONE (08:31)
[2021-04-14 09:49] VITALS: TEMP 97.8
[2021-04-14 10:10] VITALS: BP 134/89; PULSE 55
== END 2021-04-14 10:10 | disposition home or self-care (01) ==
LOC: FECT 06:44
PROVIDERS: ATTEND Psychiatry & Neurology Psychiatry
PROC: GZB4ZZZ Other Electroconvulsive Therapy (ICD-10-PCS; principal; 2021-04-14 08:30)
DX: F31.9 Bipolar disorder, unspecified (principal)
CPT/HCPCS: 90870; 94760

== ENCOUNTER 2021-04-18 07:06 | Day surgery (SDC) | payer OTHER ==
[2021-04-12 08:10] VITALS: BMI 27.3
[2021-04-18] MEDS ORDERED: PROPOFOL 20 ML ONE (09:01)
[2021-04-18] MEDS ORDERED: SUCCINYLCHOLINE CHLORIDE 200 MG/10 ML SYRINGE ONE (09:01)
[2021-04-18] MEDS ORDERED: KETAMINE HCL 200 MG/20 ML VIAL ONE (09:02)
[2021-04-18 10:16] VITALS: BP 121/80; PULSE 51; TEMP 98
== END 2021-04-18 10:35 | disposition home or self-care (01) ==
LOC: FECT 07:06
PROVIDERS: ATTEND Psychiatry & Neurology Psychiatry
PROC: GZB4ZZZ Other Electroconvulsive Therapy (ICD-10-PCS; principal; 2021-04-18 09:00)
DX: F31.9 Bipolar disorder, unspecified (principal)
CPT/HCPCS: 90870; 94760

== ENCOUNTER 2021-04-21 08:04 | Day surgery (SDC) | payer OTHER ==
[2021-04-12 08:29] VITALS: BMI 27.3
[2021-04-21] MEDS ORDERED: KETAMINE HCL 200 MG/20 ML VIAL ONE (09:34)
[2021-04-21 10:10] VITALS: TEMP 97.1
[2021-04-21 11:06] VITALS: BP 139/86; PULSE 52
== END 2021-04-21 11:05 | disposition home or self-care (01) ==
LOC: FECT 08:04
PROVIDERS: ATTEND Psychiatry & Neurology Psychiatry
PROC: GZB4ZZZ Other Electroconvulsive Therapy (ICD-10-PCS; principal; 2021-04-21 09:30)
DX: F31.9 Bipolar disorder, unspecified (principal)
CPT/HCPCS: 90870; 94760

== ENCOUNTER → 2021-04-25 | Day surgery (SDC) | payer OTHER ==
[2021-04-21 14:30] VITALS: BMI 27.3
[~2021-04-25] MED LIST changes: -PROPOFOL 20 ML ONE
[2021-04-25 10:14] VITALS: PULSE 51; TEMP 97.8
[2021-04-25 10:40] VITALS: BP 119/83
== END | disposition home or self-care (01) ==
LOC: FECT 06:43
PROVIDERS: ATTEND Psychiatry & Neurology Psychiatry
PROC: GZB4ZZZ Other Electroconvulsive Therapy (ICD-10-PCS; principal; 2021-04-25 09:30)
DX: F31.9 Bipolar disorder, unspecified (principal)
CPT/HCPCS: 90870; 94760

== ENCOUNTER 2021-05-02 10:12 | Day surgery (SDC) | payer OTHER ==
[2021-04-27 13:19] VITALS: BMI 27.3
[2021-05-02] MEDS ORDERED: KETAMINE HCL 500 MG/10 ML VIAL ONE (12:07)
[2021-05-02] MEDS ORDERED: DEXAMETHASONE SOD PHOSPHATE 4 MG/1 ML VIAL ONE (12:14)
[2021-05-02 13:05] VITALS: TEMP 97.6
[2021-05-02 13:22] VITALS: BP 155/90; PULSE 58
== END 2021-05-02 13:30 | disposition home or self-care (01) ==
LOC: FECT 10:12
PROVIDERS: ATTEND Psychiatry & Neurology Psychiatry
PROC: GZB4ZZZ Other Electroconvulsive Therapy (ICD-10-PCS; principal; 2021-05-02 11:00)
DX: F31.9 Bipolar disorder, unspecified (principal)
CPT/HCPCS: 90870; 94760

== ENCOUNTER 2021-05-09 08:26 | Day surgery (SDC) | payer OTHER ==
[2021-05-09 09:37] VITALS: BMI 27.3
[2021-05-09] MEDS ORDERED: KETAMINE HCL 500 MG/10 ML VIAL ONE (09:54)
[2021-05-10 15:58] VITALS: BP 131/70; PULSE 50; TEMP 98.4
== END 2021-05-09 11:35 | disposition home or self-care (01) ==
LOC: FECT 08:26
PROVIDERS: ATTEND Psychiatry & Neurology Psychiatry
PROC: GZB4ZZZ Other Electroconvulsive Therapy (ICD-10-PCS; principal; 2021-05-09 08:00)
DX: F31.63 Bipolar disorder, current episode mixed, severe, without psychotic features (principal)
CPT/HCPCS: 90870; 94760

== ENCOUNTER 2021-05-20 07:54 | Day surgery (SDC) | payer OTHER ==
[2021-05-09 15:14] VITALS: BMI 27.3
[2021-05-20 10:25] VITALS: TEMP 97.1
[2021-05-20 11:34] VITALS: BP 126/78; PULSE 51
== END 2021-05-20 11:36 | disposition home or self-care (01) ==
LOC: FECT 07:54
PROVIDERS: ATTEND Psychiatry & Neurology Psychiatry
PROC: GZB4ZZZ Other Electroconvulsive Therapy (ICD-10-PCS; principal; 2021-05-20 09:30)
DX: F31.63 Bipolar disorder, current episode mixed, severe, without psychotic features (principal)
CPT/HCPCS: 90870; 94760

== ENCOUNTER 2021-05-30 06:41 | Day surgery (SDC) | payer OTHER ==
[2021-05-30 07:07] VITALS: BMI 27.3
[2021-05-30] MEDS ORDERED: SUCCINYLCHOLINE CHLORIDE 200 MG/10 ML SYRINGE ONE (08:13)
[2021-05-30 08:54] VITALS: TEMP 97.8
[2021-05-30 10:09] VITALS: BP 103/68; PULSE 48
== END 2021-05-30 10:12 | disposition home or self-care (01) ==
LOC: FECT 06:41
PROVIDERS: ATTEND Psychiatry & Neurology Psychiatry
PROC: GZB4ZZZ Other Electroconvulsive Therapy (ICD-10-PCS; principal; 2021-05-30 08:00)
DX: F31.9 Bipolar disorder, unspecified (principal)
CPT/HCPCS: 90870; 94760

== ENCOUNTER 2021-06-06 10:31 | Day surgery (SDC) | payer OTHER | END 2021-06-06 10:51 | disposition home or self-care (01) | LOC: FECT 10:31 | PROVIDERS: ATTEND Psychiatry & Neurology Psychiatry | PROC: GZB4ZZZ Other Electroconvulsive Therapy (ICD-10-PCS; principal; 2021-06-06) | DX: F31.9 Bipolar disorder, unspecified (principal); Z53.8 Procedure and treatment not carried out for other reasons ==

== ENCOUNTER 2021-06-09 09:22 | Day surgery (SDC) | payer OTHER ==
[2021-06-07 10:51] VITALS: BMI 27.3
[2021-06-09] MEDS ORDERED: KETAMINE HCL 500 MG/10 ML VIAL ONE (10:26)
[2021-06-09 11:31] VITALS: TEMP 98.2
[2021-06-09 11:53] VITALS: BP 122/84; PULSE 78
== END 2021-06-09 12:12 | disposition home or self-care (01) ==
LOC: FECT 09:22
PROVIDERS: ATTEND Psychiatry & Neurology Psychiatry
PROC: GZB4ZZZ Other Electroconvulsive Therapy (ICD-10-PCS; principal; 2021-06-09 11:00)
DX: F32.9 Major depressive disorder, single episode, unspecified (principal)
CPT/HCPCS: 90870; 94760; C9803; U0003; U0005

== ENCOUNTER 2021-06-13 08:34 | Day surgery (SDC) | payer OTHER ==
[2021-06-09 14:20] VITALS: BMI 27.3
[2021-06-13] MEDS ORDERED: KETAMINE HCL 500 MG/10 ML VIAL ONE (10:13)
[2021-06-13] MEDS ORDERED: PROPOFOL 20 ML ONE (10:13)
[2021-06-13 11:12] VITALS: TEMP 97.5
[2021-06-13 11:46] VITALS: BP 122/75; PULSE 60
[2021-06-13 11:59] LABS: ALBUMIN 3.7 g/dl (3.4-5.0); BILIRUBIN,TOTAL 0.3 mg/dl (0.2-1); CALCIUM 9.1 mg/dl (8.5-10); CREATININE 0.9 mg/dl (0.55-1.3); TOT PROT 6.1 g/dl (6.4-8.2)
[2021-06-13 12:47] LABS: HEMATOCRIT 38.4 % (35.4-49); HEMOGLOBIN 12.9 GM/dL (11.7-16.9); MCH 31.4 pg (25.7-33.7); MCHC 33.5 g/dl (32.0-35.9); MEAN CELL VOLUME 93.6 fl (80-96); MEAN PLT VOLUME 8.8 fl (7.5-11.1); PLATELET COUNT 211 10^3/uL (134-434); RDW 12.6 % (11.9-15.9); WHITE BLOOD COUNT 4.1 K/mm3 (4.0-10.0)
== END 2021-06-13 11:51 | disposition home or self-care (01) ==
LOC: FECT 08:34
PROVIDERS: ATTEND Psychiatry & Neurology Psychiatry
PROC: GZB4ZZZ Other Electroconvulsive Therapy (ICD-10-PCS; principal; 2021-06-13 10:00)
DX: F31.9 Bipolar disorder, unspecified (principal)
CPT/HCPCS: 36415; 80053; 85027; 90870; 93005; 94760

== ENCOUNTER 2021-06-20 09:47 | Day surgery (SDC) | payer OTHER ==
[2021-06-20 10:35] VITALS: BMI 29.0
[2021-06-20] MEDS ORDERED: KETAMINE HCL 500 MG/10 ML VIAL ONE (10:55)
[2021-06-20 12:49] VITALS: BP 131/74; PULSE 60; TEMP 98
== END 2021-06-20 12:40 | disposition home or self-care (01) ==
LOC: FECT 09:47
PROVIDERS: ATTEND Psychiatry & Neurology Psychiatry
PROC: GZB4ZZZ Other Electroconvulsive Therapy (ICD-10-PCS; principal; 2021-06-20 11:00)
DX: F31.9 Bipolar disorder, unspecified (principal)
CPT/HCPCS: 90870; 94760

== ENCOUNTER 2021-06-27 08:56 | Day surgery (SDC) | payer OTHER ==
[2021-06-21 09:04] VITALS: BMI 27.3
[2021-06-27] MEDS ORDERED: KETAMINE HCL 500 MG/10 ML VIAL ONE (09:52)
[2021-06-27] MEDS ORDERED: SUCCINYLCHOLINE CHLORIDE 200 MG/10 ML SYRINGE ONE (09:54)
[2021-06-27 11:24] VITALS: TEMP 98
[2021-06-27 11:32] VITALS: BP 148/80; PULSE 62
== END 2021-06-27 11:33 | disposition home or self-care (01) ==
LOC: FECT 08:56
PROVIDERS: ATTEND Psychiatry & Neurology Psychiatry
PROC: GZB4ZZZ Other Electroconvulsive Therapy (ICD-10-PCS; principal; 2021-06-27 10:00)
DX: F31.9 Bipolar disorder, unspecified (principal)
CPT/HCPCS: 90870; 94760; C9803; U0003; U0005

== ENCOUNTER 2021-07-11 09:13 | Day surgery (SDC) | payer OTHER ==
[2021-07-01 10:38] VITALS: BMI 27.3
[2021-07-11] MEDS ORDERED: KETAMINE HCL 500 MG/10 ML VIAL ONE (09:50)
[2021-07-11] MEDS ORDERED: LIDOCAINE HCL/PF 2% SDV 5ML VIAL ONE (09:54)
[2021-07-11 10:22] VITALS: TEMP 97.8
[2021-07-11 11:19] VITALS: BP 133/85; PULSE 56
== END 2021-07-11 11:30 | disposition home or self-care (01) ==
LOC: FECT 09:13
PROVIDERS: ATTEND Psychiatry & Neurology Psychiatry
PROC: GZB4ZZZ Other Electroconvulsive Therapy (ICD-10-PCS; principal; 2021-07-11 10:30)
DX: F31.9 Bipolar disorder, unspecified (principal)
CPT/HCPCS: 90870; 94760

== ENCOUNTER 2021-07-18 07:37 | Day surgery (SDC) | payer OTHER ==
[2021-07-18 08:07] VITALS: BMI 27.3
[2021-07-18] MEDS ORDERED: KETAMINE HCL 500 MG/10 ML VIAL ONE (08:50)
[2021-07-18] MEDS ORDERED: ONDANSETRON 4 MG/2 ML VIAL ONE ×2 (08:53→08:54)
[2021-07-18] MEDS ORDERED: PROPOFOL 20 ML ONE (08:54)
[2021-07-18] MEDS ORDERED: SUCCINYLCHOLINE CHLORIDE 200 MG/10 ML SYRINGE ONE (08:54)
[2021-07-18 10:32] VITALS: BP 122/60; PULSE 48; TEMP 97.5
== END 2021-07-18 10:43 | disposition home or self-care (01) ==
LOC: FECT 07:37
PROVIDERS: ATTEND Psychiatry & Neurology Psychiatry
PROC: GZB4ZZZ Other Electroconvulsive Therapy (ICD-10-PCS; principal; 2021-07-18 09:00)
DX: F31.9 Bipolar disorder, unspecified (principal)
CPT/HCPCS: 90870; 94760

== ENCOUNTER 2021-07-25 08:35 | Day surgery (SDC) | payer OTHER ==
[2021-07-25 08:59] VITALS: BMI 27.3
[2021-07-25] MEDS ORDERED: KETAMINE HCL 500 MG/10 ML VIAL ONE (09:49)
[2021-07-25 11:30] VITALS: TEMP 97.8
[2021-07-25 11:50] VITALS: BP 131/72; PULSE 76
== END 2021-07-25 11:51 | disposition home or self-care (01) ==
LOC: FECT 08:35
PROVIDERS: ATTEND Psychiatry & Neurology Psychiatry
PROC: GZB4ZZZ Other Electroconvulsive Therapy (ICD-10-PCS; principal; 2021-07-25 09:30)
DX: F32.9 Major depressive disorder, single episode, unspecified (principal)
CPT/HCPCS: 90870; 94760

== ENCOUNTER 2021-08-01 07:06 | Day surgery (SDC) | payer OTHER ==
[2021-07-29 08:25] VITALS: BMI 27.3
[2021-08-01] MEDS ORDERED: KETAMINE HCL 500 MG/10 ML VIAL ONE (09:19)
[2021-08-01 10:14] VITALS: TEMP 98
[2021-08-01 11:03] VITALS: BP 122/84; PULSE 88
[2021-08-01] MEDS ORDERED: ONDANSETRON 4 MG/2 ML VIAL IVPUSH PRN (11:22)
[2021-08-01] MEDS ORDERED: LACTATED RINGERS SOLUTION 1,000 ML IV SCH (11:30)
== END 2021-08-01 11:05 | disposition home or self-care (01) ==
LOC: FECT 07:06
PROVIDERS: ATTEND Psychiatry & Neurology Psychiatry
PROC: GZB4ZZZ Other Electroconvulsive Therapy (ICD-10-PCS; principal; 2021-08-01 09:00)
DX: F31.89 Other bipolar disorder (principal)
CPT/HCPCS: 90870; 94760

== ENCOUNTER 2021-08-15 09:08 | Day surgery (SDC) | payer OTHER ==
[2021-08-12 16:17] VITALS: BMI 27.3
[2021-08-15 11:43] VITALS: TEMP 98
[2021-08-15 12:34] VITALS: BP 121/84; PULSE 61
== END 2021-08-15 12:45 | disposition home or self-care (01) ==
LOC: FECT 09:08
PROVIDERS: ATTEND Psychiatry & Neurology Psychiatry
PROC: GZB4ZZZ Other Electroconvulsive Therapy (ICD-10-PCS; principal; 2021-08-15 10:30)
DX: F31.63 Bipolar disorder, current episode mixed, severe, without psychotic features (principal)
CPT/HCPCS: 90870; 94760

== ENCOUNTER 2021-08-29 08:58 | Day surgery (SDC) | payer OTHER ==
[2021-08-26 16:01] VITALS: BMI 27.3
[2021-08-29 11:35] VITALS: TEMP 98.2
[2021-08-29 11:56] VITALS: BP 142/70; PULSE 48
== END 2021-08-29 12:15 | disposition home or self-care (01) ==
LOC: FECT 08:58
PROVIDERS: ATTEND Psychiatry & Neurology Psychiatry
PROC: GZB4ZZZ Other Electroconvulsive Therapy (ICD-10-PCS; principal; 2021-08-29)
DX: F31.63 Bipolar disorder, current episode mixed, severe, without psychotic features (principal)
CPT/HCPCS: 90870; 94760

== ENCOUNTER 2021-09-12 11:30 | Day surgery (SDC) | payer OTHER ==
[2021-08-30 10:59] VITALS: BMI 27.3
[2021-09-12] MEDS ORDERED: KETAMINE HCL 500 MG/10 ML VIAL ONE (12:27)
[2021-09-12] MEDS ORDERED: SUCCINYLCHOLINE CHLORIDE 200 MG/10 ML SYRINGE ONE (12:41)
[2021-09-12] MEDS ORDERED: PROPOFOL 20 ML ONE ×2 (12:41)
[2021-09-12 13:31] VITALS: TEMP 97.6
[2021-09-12 14:02] VITALS: BP 131/71; PULSE 55
== END 2021-09-12 14:30 | disposition home or self-care (01) ==
LOC: FECT 11:30
PROVIDERS: ATTEND Psychiatry & Neurology Psychiatry
PROC: GZB4ZZZ Other Electroconvulsive Therapy (ICD-10-PCS; principal; 2021-09-12 12:00)
DX: F31.9 Bipolar disorder, unspecified (principal)
CPT/HCPCS: 90870; 94760

== ENCOUNTER 2021-09-19 09:39 | Day surgery (SDC) | payer OTHER ==
[2021-09-13 12:13] VITALS: BMI 27.3
[2021-09-19] MEDS ORDERED: KETAMINE HCL 500 MG/10 ML VIAL ONE (10:40)
[2021-09-19 12:03] VITALS: TEMP 97.8
[2021-09-19 13:05] VITALS: BP 121/72; PULSE 76
== END 2021-09-19 13:07 | disposition home or self-care (01) ==
LOC: FECT 09:39
PROVIDERS: ATTEND Psychiatry & Neurology Psychiatry
PROC: GZB4ZZZ Other Electroconvulsive Therapy (ICD-10-PCS; principal; 2021-09-19 10:30)
DX: F31.63 Bipolar disorder, current episode mixed, severe, without psychotic features (principal)
CPT/HCPCS: 90870; 94760

== ENCOUNTER 2021-09-27 07:17 | Day surgery (SDC) | payer OTHER ==
[2021-09-21 08:24] VITALS: BMI 27.3
[2021-09-27] MEDS ORDERED: KETAMINE HCL 500 MG/10 ML VIAL ONE (09:16)
[2021-09-27 11:15] VITALS: TEMP 98.2
[2021-09-27 11:16] VITALS: BP 129/74; PULSE 75
== END 2021-09-27 11:20 | disposition home or self-care (01) ==
LOC: FECT 07:17
PROVIDERS: ATTEND Psychiatry & Neurology Psychiatry
PROC: GZB4ZZZ Other Electroconvulsive Therapy (ICD-10-PCS; principal; 2021-09-27 09:00)
DX: F31.63 Bipolar disorder, current episode mixed, severe, without psychotic features (principal)
CPT/HCPCS: 90870; 94760

== ENCOUNTER 2021-10-03 08:48 | Day surgery (SDC) | payer OTHER ==
[2021-09-27 17:29] VITALS: BMI 27.3
[2021-10-03] MEDS ORDERED: KETAMINE HCL 500 MG/10 ML VIAL ONE (10:07)
[2021-10-03] MEDS ORDERED: GLYCOPYRROLATE 0.2 MG/1 ML VIAL ONE (10:14)
[2021-10-03 11:04] VITALS: TEMP 98.1
[2021-10-03 11:36] VITALS: BP 137/84; PULSE 56
== END 2021-10-03 11:45 | disposition home or self-care (01) ==
LOC: FECT 08:48
PROVIDERS: ATTEND Psychiatry & Neurology Psychiatry
PROC: GZB4ZZZ Other Electroconvulsive Therapy (ICD-10-PCS; principal; 2021-10-03 10:00)
DX: F31.63 Bipolar disorder, current episode mixed, severe, without psychotic features (principal)
CPT/HCPCS: 90870; 94760

== ENCOUNTER 2021-10-10 10:08 | Day surgery (SDC) | payer OTHER ==
[2021-10-10 10:53] VITALS: TEMP 98.2
[2021-10-10] MEDS ORDERED: KETAMINE HCL 500 MG/10 ML VIAL ONE (11:02)
[2021-10-10] MEDS ORDERED: SUCCINYLCHOLINE CHLORIDE 200 MG/10 ML SYRINGE ONE (11:10)
[2021-10-10 13:48] VITALS: BP 121/71; PULSE 59
== END 2021-10-10 13:00 | disposition home or self-care (01) ==
LOC: FECT 10:08
PROVIDERS: ATTEND Psychiatry & Neurology Psychiatry
PROC: GZB4ZZZ Other Electroconvulsive Therapy (ICD-10-PCS; principal; 2021-10-10 11:00)
DX: F31.63 Bipolar disorder, current episode mixed, severe, without psychotic features (principal)
CPT/HCPCS: 90870; 94760

== ENCOUNTER 2021-10-17 10:07 | Day surgery (SDC) | payer OTHER ==
[2021-10-11 15:40] VITALS: BMI 27.3
[2021-10-17] MEDS ORDERED: KETAMINE HCL 500 MG/10 ML VIAL ONE (11:28)
[2021-10-17 12:52] VITALS: TEMP 97.8
[2021-10-17 12:58] VITALS: BP 141/81; PULSE 51
== END 2021-10-17 13:25 | disposition home or self-care (01) ==
LOC: FECT 10:07
PROVIDERS: ATTEND Psychiatry & Neurology Psychiatry
PROC: GZB4ZZZ Other Electroconvulsive Therapy (ICD-10-PCS; principal; 2021-10-17 11:00)
DX: F31.9 Bipolar disorder, unspecified (principal)
CPT/HCPCS: 90870; 94760

== ENCOUNTER 2021-10-24 07:52 | Day surgery (SDC) | payer OTHER ==
[2021-10-20 07:52] VITALS: BMI 27.3
[2021-10-24] MEDS ORDERED: KETAMINE HCL 500 MG/10 ML VIAL ONE (08:53)
[2021-10-24 10:03] VITALS: TEMP 97.8
[2021-10-24 10:10] VITALS: PULSE 46
[2021-10-24 11:10] VITALS: BP 116/64
== END 2021-10-24 11:00 | disposition home or self-care (01) ==
LOC: FECT 07:52
PROVIDERS: ATTEND Psychiatry & Neurology Psychiatry
PROC: GZB4ZZZ Other Electroconvulsive Therapy (ICD-10-PCS; principal; 2021-10-24 09:00)
DX: F31.63 Bipolar disorder, current episode mixed, severe, without psychotic features (principal)
CPT/HCPCS: 90870; 94760

== ENCOUNTER 2021-11-01 08:09 | Day surgery (SDC) | payer OTHER ==
[2021-11-01 09:16] VITALS: BMI 26.6
[2021-11-01] MEDS ORDERED: KETAMINE HCL 200 MG/20 ML VIAL ONE (09:54)
[2021-11-01 11:26] VITALS: BP 136/76; PULSE 59; TEMP 97.7
== END 2021-11-01 11:30 | disposition home or self-care (01) ==
LOC: FECT 08:09
PROVIDERS: ATTEND Psychiatry & Neurology Psychiatry
PROC: GZB4ZZZ Other Electroconvulsive Therapy (ICD-10-PCS; principal; 2021-11-01 10:01)
DX: F31.63 Bipolar disorder, current episode mixed, severe, without psychotic features (principal)
CPT/HCPCS: 90870; 94760

== ENCOUNTER 2021-11-07 09:52 | Day surgery (SDC) | payer OTHER ==
[2021-11-02 14:18] VITALS: BMI 26.6
[2021-11-07] MEDS ORDERED: PROPOFOL 20 ML ONE (11:10)
[2021-11-07] MEDS ORDERED: SUCCINYLCHOLINE CHLORIDE 200 MG/10 ML SYRINGE ONE (11:10)
[2021-11-07 14:08] VITALS: TEMP 97.3
[2021-11-07 14:10] VITALS: PULSE 61
[2021-11-07 14:13] VITALS: BP 142/88
== END 2021-11-07 12:45 | disposition home or self-care (01) ==
LOC: FECT 09:52
PROVIDERS: ATTEND Psychiatry & Neurology Psychiatry
PROC: GZB4ZZZ Other Electroconvulsive Therapy (ICD-10-PCS; principal; 2021-11-07 11:15)
DX: F31.63 Bipolar disorder, current episode mixed, severe, without psychotic features (principal)
CPT/HCPCS: 90870; 94760

== ENCOUNTER → 2021-11-14 | Day surgery (SDC) | payer OTHER ==
[2021-11-10 16:24] VITALS: BMI 26.6
[2021-11-14 11:18] VITALS: TEMP 98.1
[2021-11-14 11:21] VITALS: BP 114/86; PULSE 55
== END | disposition home or self-care (01) ==
LOC: FECT 08:39
PROVIDERS: ATTEND Psychiatry & Neurology Psychiatry
PROC: GZB4ZZZ Other Electroconvulsive Therapy (ICD-10-PCS; principal; 2021-11-14 10:00)
DX: F31.63 Bipolar disorder, current episode mixed, severe, without psychotic features (principal)
CPT/HCPCS: 90870; 94760

== ENCOUNTER 2021-11-21 10:34 | Day surgery (SDC) | payer OTHER ==
[2021-11-17 07:49] VITALS: BMI 26.6
[2021-11-21 11:13] VITALS: TEMP 98.4
[2021-11-21 14:12] VITALS: BP 131/82; PULSE 54
[2021-11-22 14:09] LABS: SARS-CoV-2 NAA Not Detected (Not Detected)
== END 2021-11-21 14:00 | disposition home or self-care (01) ==
LOC: FECT 10:34
PROVIDERS: ATTEND Psychiatry & Neurology Psychiatry
PROC: GZB4ZZZ Other Electroconvulsive Therapy (ICD-10-PCS; principal; 2021-11-21 12:40)
DX: F31.63 Bipolar disorder, current episode mixed, severe, without psychotic features (principal)
CPT/HCPCS: 90870; 94760; C9803; U0003; U0005

== ENCOUNTER 2021-11-25 07:33 | Day surgery (SDC) | payer OTHER ==
[2021-11-21 08:31] VITALS: BMI 26.6
[2021-11-25] MEDS ORDERED: KETAMINE HCL 500 MG/10 ML VIAL ONE (08:30)
[2021-11-25 09:49] VITALS: PULSE 56; TEMP 97.6
[2021-11-25 10:03] VITALS: BP 139/43
== END 2021-11-25 10:30 | disposition home or self-care (01) ==
LOC: FECT 07:33
PROVIDERS: ATTEND Psychiatry & Neurology Psychiatry
PROC: GZB4ZZZ Other Electroconvulsive Therapy (ICD-10-PCS; principal; 2021-11-25 08:38)
DX: F31.63 Bipolar disorder, current episode mixed, severe, without psychotic features (principal)
CPT/HCPCS: 90870; 94760

== ENCOUNTER 2021-12-05 11:12 | Day surgery (SDC) | payer OTHER ==
[2021-11-25 09:48] VITALS: BMI 26.6
[2021-12-05] MEDS ORDERED: KETAMINE HCL 500 MG/10 ML VIAL ONE (12:33)
[2021-12-05 13:36] VITALS: TEMP 98.4
[2021-12-05 14:35] LABS: ALBUMIN 3.9 g/dl (3.4-5.0); BILIRUBIN,TOTAL 0.6 mg/dl (0.2-1); CALCIUM 9.4 mg/dl (8.5-10); CREATININE 0.8 mg/dl (0.55-1.3); MAGNESIUM 1.8 mg/dL (1.8-2.4); TOT PROT 6.4 g/dl (6.4-8.2)
[2021-12-05 14:52] VITALS: BP 125/61; PULSE 55
[2021-12-05 15:33] LABS: BASO % 0.6 % (0-2.0); EOS % 2.7 % (0-4.5); HEMATOCRIT 39.5 % (35.4-49); HEMOGLOBIN 13.1 GM/dL (11.7-16.9); LYMPH % 28.5 % (8-40); MCHC 33.1 g/dl (32.0-35.9); MEAN CELL VOLUME 93.8 fl (80-96); MEAN PLT VOLUME 8.2 fl (7.5-11.1); MONO % 10.3 % (3.8-10.2); NEUT % 57.9 % (42.8-82.8); PLATELET COUNT 246 10^3/uL (134-434); RBC 4.21 M/mm3 (4.00-5.60); RDW 12.9 % (11.9-15.9); WHITE BLOOD COUNT 5.7 K/mm3 (4.0-10.0)
== END 2021-12-05 14:15 | disposition home or self-care (01) ==
LOC: FECT 11:12
PROVIDERS: ATTEND Psychiatry & Neurology Psychiatry
PROC: GZB4ZZZ Other Electroconvulsive Therapy (ICD-10-PCS; principal; 2021-12-05 12:43)
DX: F31.63 Bipolar disorder, current episode mixed, severe, without psychotic features (principal)
CPT/HCPCS: 36415; 80053; 83735; 85025; 90870; 93005; 94760

== ENCOUNTER 2021-12-13 09:12 | Day surgery (SDC) | payer OTHER ==
[2021-12-07 08:24] VITALS: BMI 26.6
[2021-12-13] MEDS ORDERED: KETAMINE HCL 500 MG/10 ML VIAL ONE (10:50)
[2021-12-13] MEDS ORDERED: GLYCOPYRROLATE 0.2 MG/1 ML VIAL ONE (10:54)
[2021-12-13] MEDS ORDERED: ONDANSETRON 4 MG/2 ML VIAL IVPUSH PRN (11:39)
[2021-12-13] MEDS ORDERED: LACTATED RINGERS SOLUTION 1,000 ML IV SCH (11:45)
[2021-12-13 14:33] VITALS: BP 129/66; PULSE 56; TEMP 99
== END 2021-12-13 12:45 | disposition home or self-care (01) ==
LOC: FECT 09:12
PROVIDERS: ATTEND Psychiatry & Neurology Psychiatry
PROC: GZB4ZZZ Other Electroconvulsive Therapy (ICD-10-PCS; principal; 2021-12-13 11:04)
DX: F31.9 Bipolar disorder, unspecified (principal)
CPT/HCPCS: 90870; 94760

== ENCOUNTER 2021-12-19 08:25 | Day surgery (SDC) | payer OTHER ==
[2021-12-14 08:26] VITALS: BMI 27.4
[2021-12-19] MEDS ORDERED: KETAMINE HCL 500 MG/10 ML VIAL ONE (09:27)
[2021-12-19 10:34] VITALS: TEMP 97.5
[2021-12-19 11:51] VITALS: BP 121/69; PULSE 54
== END 2021-12-19 11:15 | disposition home or self-care (01) ==
LOC: FECT 08:25
PROVIDERS: ATTEND Psychiatry & Neurology Psychiatry
PROC: GZB4ZZZ Other Electroconvulsive Therapy (ICD-10-PCS; principal; 2021-12-19 09:38)
DX: F31.63 Bipolar disorder, current episode mixed, severe, without psychotic features (principal)
CPT/HCPCS: 90870; 94760

== ENCOUNTER 2021-12-26 07:54 | Day surgery (SDC) | payer OTHER ==
[2021-12-20 15:16] VITALS: BMI 27.4
[2021-12-26] MEDS ORDERED: KETAMINE HCL 500 MG/10 ML VIAL ONE (10:17)
[2021-12-26 11:56] VITALS: BP 110/66; PULSE 50; TEMP 97.8
[2021-12-27 13:07] LABS: SARS-CoV-2 NAA Not Detected (Not Detected)
== END 2021-12-26 11:57 | disposition home or self-care (01) ==
LOC: FECT 07:54
PROVIDERS: ATTEND Psychiatry & Neurology Psychiatry
PROC: GZB4ZZZ Other Electroconvulsive Therapy (ICD-10-PCS; principal; 2021-12-26 10:33)
DX: F31.63 Bipolar disorder, current episode mixed, severe, without psychotic features (principal)
CPT/HCPCS: 90870; 94760; C9803-CS; U0003; U0005

== ENCOUNTER 2021-12-29 08:58 | Day surgery (SDC) | payer OTHER ==
[2021-12-27 11:29] VITALS: BMI 27.4
[2021-12-29] MEDS ORDERED: KETAMINE HCL 500 MG/10 ML VIAL ONE (11:28)
[2021-12-29 12:42] VITALS: BP 147/74; PULSE 60; TEMP 97.7
== END 2021-12-29 13:00 | disposition home or self-care (01) ==
LOC: FECT 08:58
PROVIDERS: ATTEND Psychiatry & Neurology Psychiatry
PROC: GZB4ZZZ Other Electroconvulsive Therapy (ICD-10-PCS; principal; 2021-12-29 11:43)
DX: F31.63 Bipolar disorder, current episode mixed, severe, without psychotic features (principal)
CPT/HCPCS: 90870; 94760

== ENCOUNTER 2021-12-30 06:13 | Day surgery (SDC) | payer OTHER ==
[2021-12-27 11:24] VITALS: BMI 27.4
[2021-12-30] MEDS ORDERED: KETAMINE HCL 500 MG/10 ML VIAL ONE (07:24)
[2021-12-30 08:10] VITALS: TEMP 98.4
[2021-12-30 08:58] VITALS: BP 138/82; PULSE 56
[2021-12-31 19:08] LABS: SARS-CoV-2 NAA Not Detected (Not Detected)
== END 2021-12-30 09:25 | disposition home or self-care (01) ==
LOC: FECT 06:13
PROVIDERS: ATTEND Psychiatry & Neurology Psychiatry
PROC: GZB4ZZZ Other Electroconvulsive Therapy (ICD-10-PCS; principal; 2021-12-30 07:38)
DX: F31.9 Bipolar disorder, unspecified (principal)
CPT/HCPCS: 90870; 94760; C9803-CS; U0003; U0005

== ENCOUNTER 2022-01-02 07:03 | Day surgery (SDC) | payer OTHER ==
[2021-12-28 10:42] VITALS: BMI 27.4
[2022-01-02] MEDS ORDERED: KETAMINE HCL 500 MG/10 ML VIAL ONE (08:59)
[2022-01-02 10:54] VITALS: BP 115/65; PULSE 54; TEMP 98
[2022-01-03 12:11] LABS: SARS-CoV-2 NAA Not Detected (Not Detected)
== END 2022-01-02 10:45 | disposition home or self-care (01) ==
LOC: FECT 07:03
PROVIDERS: ATTEND Psychiatry & Neurology Psychiatry
PROC: GZB4ZZZ Other Electroconvulsive Therapy (ICD-10-PCS; principal; 2022-01-02 09:10)
DX: F31.63 Bipolar disorder, current episode mixed, severe, without psychotic features (principal)
CPT/HCPCS: 90870; 94760; C9803-CS; U0003; U0005

== ENCOUNTER 2022-01-05 08:16 | Day surgery (SDC) | payer OTHER ==
[2022-01-05 08:42] VITALS: BMI 27.4
[2022-01-05] MEDS ORDERED: KETAMINE HCL 500 MG/10 ML VIAL ONE (09:49)
[2022-01-05] MEDS ORDERED: ONDANSETRON 4 MG/2 ML VIAL ONE (10:06)
[2022-01-05 10:45] VITALS: TEMP 97.8
[2022-01-05 11:15] VITALS: BP 134/64; PULSE 52
== END 2022-01-05 11:56 | disposition home or self-care (01) ==
LOC: FECT 08:16
PROVIDERS: ATTEND Psychiatry & Neurology Psychiatry
PROC: GZB4ZZZ Other Electroconvulsive Therapy (ICD-10-PCS; principal; 2022-01-05 09:58)
DX: F31.9 Bipolar disorder, unspecified (principal)
CPT/HCPCS: 90870; 94760

== ENCOUNTER 2022-01-06 06:05 | Day surgery (SDC) | payer OTHER ==
[2021-12-29 15:15] VITALS: BMI 27.4
[2022-01-06] MEDS ORDERED: KETAMINE HCL 500 MG/10 ML VIAL ONE (07:29)
[2022-01-06 08:27] VITALS: TEMP 97.6
[2022-01-06 09:05] VITALS: BP 118/72; PULSE 54
[2022-01-07 17:07] LABS: SARS-CoV-2 NAA Not Detected (Not Detected)
== END 2022-01-06 09:11 | disposition home or self-care (01) ==
LOC: FECT 06:05
PROVIDERS: ATTEND Psychiatry & Neurology Psychiatry
PROC: GZB4ZZZ Other Electroconvulsive Therapy (ICD-10-PCS; principal; 2022-01-06 07:40)
DX: F31.9 Bipolar disorder, unspecified (principal)
CPT/HCPCS: 90870; 94760; C9803-CS; U0003; U0005

== ENCOUNTER 2022-01-09 06:35 | Day surgery (SDC) | payer OTHER ==
[2022-01-02 12:10] VITALS: BMI 27.4
[2022-01-09] MEDS ORDERED: KETAMINE HCL 500 MG/10 ML VIAL ONE (07:13)
[2022-01-09] MEDS ORDERED: SUCCINYLCHOLINE CHLORIDE 200 MG/10 ML SYRINGE ONE (07:49)
[2022-01-09] MEDS ORDERED: PROPOFOL 20 ML ONE ×2 (07:52→08:54)
[2022-01-09 08:51] VITALS: TEMP 97.6
[2022-01-09 09:10] VITALS: BP 118/71; PULSE 52
[2022-01-10 15:09] LABS: SARS-CoV-2 NAA Not Detected (Not Detected)
== END 2022-01-09 09:37 | disposition home or self-care (01) ==
LOC: FECT 06:35
PROVIDERS: ATTEND Psychiatry & Neurology Psychiatry
PROC: GZB4ZZZ Other Electroconvulsive Therapy (ICD-10-PCS; principal; 2022-01-09 07:45)
DX: F31.63 Bipolar disorder, current episode mixed, severe, without psychotic features (principal)
CPT/HCPCS: 90870; 94760; C9803-CS; U0003; U0005

== ENCOUNTER 2022-01-12 08:33 | Day surgery (SDC) | payer OTHER ==
[2022-01-02 12:12] VITALS: BMI 27.4
[2022-01-12] MEDS ORDERED: KETAMINE HCL 500 MG/10 ML VIAL ONE (10:44)
[2022-01-12 11:50] VITALS: TEMP 97.3
[2022-01-12 12:30] VITALS: BP 133/88; PULSE 61
[2022-01-13 16:18] LABS: SARS-CoV-2 NAA Not Detected (Not Detected)
== END 2022-01-12 12:30 | disposition home or self-care (01) ==
LOC: FECT 08:33
PROVIDERS: ATTEND Psychiatry & Neurology Psychiatry
PROC: GZB4ZZZ Other Electroconvulsive Therapy (ICD-10-PCS; principal; 2022-01-12 10:51)
DX: F31.9 Bipolar disorder, unspecified (principal)
CPT/HCPCS: 90870; 94760; C9803-CS; U0003; U0005

== ENCOUNTER 2022-01-13 07:29 | Day surgery (SDC) | payer OTHER ==
[2022-01-02 12:15] VITALS: BMI 27.4
[2022-01-13] MEDS ORDERED: SUCCINYLCHOLINE CHLORIDE 200 MG/10 ML SYRINGE ONE (09:00)
[2022-01-13] MEDS ORDERED: PROPOFOL 20 ML ONE (09:00)
[2022-01-13] MEDS ORDERED: ONDANSETRON 4 MG/2 ML VIAL ONE (09:00)
[2022-01-13] MEDS ORDERED: ONDANSETRON 4 MG/2 ML VIAL IVPUSH PRN (10:02)
[2022-01-13] MEDS ORDERED: ACETAMINOPHEN 325 MG TABLET (FP) PO PRN (10:02)
[2022-01-13 10:06] VITALS: BP 126/78; PULSE 60; TEMP 97.9
== END 2022-01-13 10:50 | disposition home or self-care (01) ==
LOC: FECT 07:29
PROVIDERS: ATTEND Psychiatry & Neurology Psychiatry
PROC: GZB4ZZZ Other Electroconvulsive Therapy (ICD-10-PCS; principal; 2022-01-13 09:05)
DX: F31.9 Bipolar disorder, unspecified (principal)
CPT/HCPCS: 90870; 94760

== ENCOUNTER 2022-01-16 06:49 | Day surgery (SDC) | payer OTHER ==
[2022-01-03 11:46] VITALS: BMI 27.4
[2022-01-16] MEDS ORDERED: KETAMINE HCL 500 MG/10 ML VIAL ONE (08:02)
[2022-01-16 09:10] VITALS: TEMP 97.9
[2022-01-16 10:56] VITALS: BP 124/63; PULSE 68
[2022-01-17 16:17] LABS: SARS-CoV-2 NAA Not Detected (Not Detected)
== END 2022-01-16 10:25 | disposition home or self-care (01) ==
LOC: FECT 06:49
PROVIDERS: ATTEND Psychiatry & Neurology Psychiatry
PROC: GZB4ZZZ Other Electroconvulsive Therapy (ICD-10-PCS; principal; 2022-01-16 08:18)
DX: F31.63 Bipolar disorder, current episode mixed, severe, without psychotic features (principal)
CPT/HCPCS: 90870; 94760; C9803-CS; U0003; U0005

== ENCOUNTER 2022-01-19 07:07 | Day surgery (SDC) | payer OTHER ==
[2022-01-03 14:28] VITALS: BMI 27.4
[2022-01-19 09:58] VITALS: TEMP 97.1
[2022-01-19 11:16] VITALS: BP 110/61; PULSE 48
[2022-01-20 12:12] LABS: SARS-CoV-2 NAA Not Detected (Not Detected)
== END 2022-01-19 10:45 | disposition home or self-care (01) ==
LOC: FECT 07:07
PROVIDERS: ATTEND Psychiatry & Neurology Psychiatry
PROC: GZB4ZZZ Other Electroconvulsive Therapy (ICD-10-PCS; principal; 2022-01-19 09:20)
DX: F31.63 Bipolar disorder, current episode mixed, severe, without psychotic features (principal)
CPT/HCPCS: 90870; 94760; C9803-CS; U0003; U0005

== ENCOUNTER 2022-01-20 07:03 | Day surgery (SDC) | payer OTHER ==
[2022-01-13 08:45] VITALS: BMI 27.4
[2022-01-20] MEDS ORDERED: KETAMINE HCL 500 MG/10 ML VIAL ONE (07:57)
[2022-01-20] MEDS ORDERED: PROMETHAZINE HCL 25 MG/1 ML VIAL IVPUSH PRN (08:28)
[2022-01-20] MEDS ORDERED: ACETAMINOPHEN 500 MG TABLET (FP) PO PRN (08:28)
[2022-01-20] MEDS ORDERED: LACTATED RINGERS SOLUTION 1,000 ML IV SCH (08:30)
[2022-01-20 09:16] VITALS: PULSE 50; TEMP 97.4
[2022-01-20 13:55] VITALS: BP 107/66
== END 2022-01-20 09:55 | disposition home or self-care (01) ==
LOC: FECT 07:03
PROVIDERS: ATTEND Psychiatry & Neurology Psychiatry
PROC: GZB4ZZZ Other Electroconvulsive Therapy (ICD-10-PCS; principal; 2022-01-20 08:08)
DX: F31.9 Bipolar disorder, unspecified (principal)
CPT/HCPCS: 90870; 94760

== ENCOUNTER 2022-01-23 08:44 | Day surgery (SDC) | payer OTHER ==
[2022-01-20 14:20] VITALS: BMI 27.4
[2022-01-23] MEDS ORDERED: ACETAMINOPHEN 500 MG TABLET (FP) PO PRN (09:34)
[2022-01-23] MEDS ORDERED: PROMETHAZINE HCL 25 MG/1 ML VIAL IVPUSH PRN (09:34)
[2022-01-23] MEDS ORDERED: LACTATED RINGERS SOLUTION 1,000 ML IV SCH (09:45)
[2022-01-23] MEDS ORDERED: KETAMINE HCL 500 MG/10 ML VIAL ONE (09:48)
[2022-01-23 11:17] VITALS: BP 135/77; PULSE 54; TEMP 97.8
[2022-01-24 13:13] LABS: SARS-CoV-2 NAA Not Detected (Not Detected)
== END 2022-01-23 11:30 | disposition home or self-care (01) ==
LOC: FECT 08:44
PROVIDERS: ATTEND Psychiatry & Neurology Psychiatry
PROC: GZB4ZZZ Other Electroconvulsive Therapy (ICD-10-PCS; principal; 2022-01-23 09:58)
DX: F31.63 Bipolar disorder, current episode mixed, severe, without psychotic features (principal)
CPT/HCPCS: 90870; 94760; C9803-CS; U0003; U0005

== ENCOUNTER 2022-01-26 06:01 | Day surgery (SDC) | payer OTHER ==
[2022-01-26 06:41] VITALS: BMI 26.6
[2022-01-26] MEDS ORDERED: KETAMINE HCL 500 MG/10 ML VIAL ONE (07:10)
[2022-01-26] MEDS ORDERED: SUCCINYLCHOLINE CHLORIDE 200 MG/10 ML SYRINGE ONE (07:32)
[2022-01-26 08:20] VITALS: TEMP 98
[2022-01-26 08:41] VITALS: BP 154/92; PULSE 52
[2022-01-27] MEDS ORDERED: KETAMINE HCL 500 MG/10 ML VIAL ONE (09:21)
[2022-01-28 00:07] LABS: SARS-CoV-2 NAA Not Detected (Not Detected)
== END 2022-01-26 09:00 | disposition home or self-care (01) ==
LOC: FECT 06:01
PROVIDERS: ATTEND Psychiatry & Neurology Psychiatry
PROC: GZB4ZZZ Other Electroconvulsive Therapy (ICD-10-PCS; principal; 2022-01-26 07:25)
DX: F31.9 Bipolar disorder, unspecified (principal)
CPT/HCPCS: 90870; 94760; C9803-CS; U0003; U0005

== ENCOUNTER 2022-01-27 07:58 | Day surgery (SDC) | payer OTHER ==
[2022-01-27 09:23] VITALS: BMI 26.6
[2022-01-27 10:30] VITALS: PULSE 68; TEMP 98.7
[2022-01-27 10:59] VITALS: BP 146/84
== END 2022-01-27 11:05 | disposition home or self-care (01) ==
LOC: FECT 07:58
PROVIDERS: ATTEND Psychiatry & Neurology Psychiatry
PROC: GZB4ZZZ Other Electroconvulsive Therapy (ICD-10-PCS; principal; 2022-01-27 09:29)
DX: F31.9 Bipolar disorder, unspecified (principal)
CPT/HCPCS: 90870; 94760

== ENCOUNTER 2022-01-31 07:34 | Day surgery (SDC) | payer OTHER ==
[2022-01-31 08:10] VITALS: BMI 26.6
[2022-01-31 10:38] VITALS: TEMP 97.4
[2022-01-31 10:50] VITALS: BP 141/68; PULSE 62
[2022-02-01 15:08] LABS: SARS-CoV-2 NAA Not Detected (Not Detected)
== END 2022-01-31 10:45 | disposition home or self-care (01) ==
LOC: FECT 07:34
PROVIDERS: ATTEND Psychiatry & Neurology Psychiatry
PROC: GZB4ZZZ Other Electroconvulsive Therapy (ICD-10-PCS; principal; 2022-01-31 09:12)
DX: F31.9 Bipolar disorder, unspecified (principal)
CPT/HCPCS: 90870; 94760; C9803-CS; U0003; U0005

== ENCOUNTER 2022-02-02 08:35 | Day surgery (SDC) | payer OTHER ==
[2022-01-30 16:00] VITALS: BMI 26.6
[2022-02-02 11:03] VITALS: TEMP 98.1
[2022-02-02 11:55] VITALS: BP 115/77; PULSE 49
== END 2022-02-02 11:50 | disposition home or self-care (01) ==
LOC: FECT 08:35
PROVIDERS: ATTEND Psychiatry & Neurology Psychiatry
PROC: GZB4ZZZ Other Electroconvulsive Therapy (ICD-10-PCS; principal; 2022-02-02 10:05)
DX: F31.9 Bipolar disorder, unspecified (principal)
CPT/HCPCS: 90870; 94760; C9803-CS; U0003; U0005

== ENCOUNTER 2022-02-03 06:41 | Day surgery (SDC) | payer OTHER ==
[2022-01-30 16:10] VITALS: BMI 26.6
[2022-02-03] MEDS ORDERED: KETOROLAC TROMETHAMINE 30 MG/1 ML VIAL ONE (08:14)
[2022-02-03] MEDS ORDERED: GLYCOPYRROLATE 0.2 MG/1 ML VIAL ONE (08:14)
[2022-02-03] MEDS ORDERED: KETAMINE HCL 500 MG/10 ML VIAL ONE (08:24)
[2022-02-03] MEDS ORDERED: ONDANSETRON 4 MG/2 ML VIAL ONE (08:35)
[2022-02-03] MEDS ORDERED: ONDANSETRON 4 MG/2 ML VIAL IVPUSH PRN (09:08)
[2022-02-03] MEDS ORDERED: LACTATED RINGERS SOLUTION 1,000 ML IV SCH (09:15)
[2022-02-03 10:03] VITALS: TEMP 97.6
[2022-02-03 10:06] VITALS: BP 133/79; PULSE 54
== END 2022-02-03 10:10 | disposition home or self-care (01) ==
LOC: FECT 06:41
PROVIDERS: ATTEND Psychiatry & Neurology Psychiatry
PROC: GZB4ZZZ Other Electroconvulsive Therapy (ICD-10-PCS; principal; 2022-02-03 08:41)
DX: F31.9 Bipolar disorder, unspecified (principal)
CPT/HCPCS: 90870; 94760

== ENCOUNTER 2022-02-07 06:58 | Day surgery (SDC) | payer OTHER ==
[2022-02-01 14:32] VITALS: BMI 26.6
[2022-02-07] MEDS ORDERED: KETAMINE HCL 500 MG/10 ML VIAL ONE (08:55)
[2022-02-07] MEDS ORDERED: LIDOCAINE HCL/PF 2% SDV 5ML VIAL ONE (08:58)
[2022-02-07] MEDS ORDERED: KETOROLAC TROMETHAMINE 30 MG/1 ML VIAL ONE (08:58)
[2022-02-07] MEDS ORDERED: ONDANSETRON 4 MG/2 ML VIAL ONE (08:58)
[2022-02-07] MEDS ORDERED: PROPOFOL 20 ML ONE (08:58)
[2022-02-07] MEDS ORDERED: SUCCINYLCHOLINE CHLORIDE 200 MG/10 ML SYRINGE ONE (09:00)
[2022-02-07 09:24] VITALS: TEMP 97.3
[2022-02-07 10:38] VITALS: BP 151/82; PULSE 77
== END 2022-02-07 10:40 | disposition home or self-care (01) ==
LOC: FECT 06:58
PROVIDERS: ATTEND Psychiatry & Neurology Psychiatry
PROC: GZB4ZZZ Other Electroconvulsive Therapy (ICD-10-PCS; principal; 2022-02-07 09:02)
DX: F31.63 Bipolar disorder, current episode mixed, severe, without psychotic features (principal)
CPT/HCPCS: 90870; 94760; C9803-CS; U0003; U0005

== ENCOUNTER 2022-02-10 07:46 | Day surgery (SDC) | payer OTHER ==
[2022-02-03 14:17] VITALS: BMI 26.6
[2022-02-10] MEDS ORDERED: KETAMINE HCL 500 MG/10 ML VIAL ONE (08:55)
[2022-02-10] MEDS ORDERED: KETOROLAC TROMETHAMINE 30 MG/1 ML VIAL ONE (08:55)
[2022-02-10] MEDS ORDERED: LIDOCAINE HCL/PF 2% SDV 5ML VIAL ONE (08:57)
[2022-02-10] MEDS ORDERED: ONDANSETRON 4 MG/2 ML VIAL ONE (08:57)
[2022-02-10] MEDS ORDERED: SUCCINYLCHOLINE CHLORIDE 200 MG/10 ML SYRINGE ONE (08:57)
[2022-02-10] MEDS ORDERED: PROPOFOL 20 ML ONE (08:58)
[2022-02-10] MEDS ORDERED: ACETAMINOPHEN 325 MG TABLET (FP) PO PRN (10:00)
[2022-02-10 10:13] VITALS: TEMP 97.3
[2022-02-10 10:39] VITALS: BP 121/69; PULSE 55
== END 2022-02-10 11:00 | disposition home or self-care (01) ==
LOC: FECT 07:46
PROVIDERS: ATTEND Psychiatry & Neurology Psychiatry
PROC: GZB4ZZZ Other Electroconvulsive Therapy (ICD-10-PCS; principal; 2022-02-10 09:02)
DX: F31.63 Bipolar disorder, current episode mixed, severe, without psychotic features (principal)
CPT/HCPCS: 90870; 94760; C9803-CS; U0003; U0005

== ENCOUNTER 2022-02-14 07:50 | Day surgery (SDC) | payer OTHER ==
[2022-02-03 14:13] VITALS: BMI 26.6
[2022-02-14] MEDS ORDERED: KETAMINE HCL 500 MG/10 ML VIAL ONE (09:07)
[2022-02-14 10:29] VITALS: TEMP 97.7
[2022-02-14 10:30] VITALS: BP 133/70; PULSE 54
== END 2022-02-14 11:12 | disposition home or self-care (01) ==
LOC: FECT 07:50
PROVIDERS: ATTEND Psychiatry & Neurology Psychiatry
PROC: GZB4ZZZ Other Electroconvulsive Therapy (ICD-10-PCS; principal; 2022-02-14 09:17)
DX: F31.9 Bipolar disorder, unspecified (principal)
CPT/HCPCS: 90870; 94760; C9803-CS; U0003; U0005

== ENCOUNTER 2022-02-21 06:37 | Day surgery (SDC) | payer OTHER ==
[2022-02-17 10:05] VITALS: BMI 26.6
[2022-02-21] MEDS ORDERED: KETAMINE HCL 500 MG/10 ML VIAL ONE (08:23)
[2022-02-21 09:31] VITALS: TEMP 97.6
[2022-02-21 10:23] VITALS: BP 138/72; PULSE 61
== END 2022-02-21 10:24 | disposition home or self-care (01) ==
LOC: FECT 06:37
PROVIDERS: ATTEND Psychiatry & Neurology Psychiatry
PROC: GZB4ZZZ Other Electroconvulsive Therapy (ICD-10-PCS; principal; 2022-02-21 08:33)
DX: F31.63 Bipolar disorder, current episode mixed, severe, without psychotic features (principal)
CPT/HCPCS: 90870; 94760

== ENCOUNTER 2022-02-24 06:16 | Day surgery (SDC) | payer OTHER ==
[2022-02-20 15:49] VITALS: BMI 26.6
[2022-02-24] MEDS ORDERED: KETAMINE HCL 500 MG/10 ML VIAL ONE (07:55)
[2022-02-24 09:35] VITALS: PULSE 48; TEMP 97.9
[2022-02-24 09:36] VITALS: BP 113/69
== END 2022-02-24 09:15 | disposition home or self-care (01) ==
LOC: FECT 06:16
PROVIDERS: ATTEND Psychiatry & Neurology Psychiatry
PROC: GZB4ZZZ Other Electroconvulsive Therapy (ICD-10-PCS; principal; 2022-02-24 08:06)
DX: F31.9 Bipolar disorder, unspecified (principal)
CPT/HCPCS: 90870; 94760; C9803-CS; U0003; U0005

== ENCOUNTER 2022-03-10 07:46 | Day surgery (SDC) | payer OTHER ==
[2022-02-23 16:30] VITALS: BMI 26.6
[2022-03-10] MEDS ORDERED: KETAMINE HCL 500 MG/10 ML VIAL ONE (09:41)
[2022-03-10] MEDS ORDERED: SUCCINYLCHOLINE CHLORIDE 200 MG/10 ML SYRINGE ONE (09:45)
[2022-03-10 10:57] VITALS: PULSE 42
[2022-03-10 11:04] VITALS: BP 130/62
[2022-03-10 11:26] VITALS: TEMP 97.8
== END 2022-03-10 11:38 | disposition home or self-care (01) ==
LOC: FECT 07:46
PROVIDERS: ATTEND Psychiatry & Neurology Psychiatry
PROC: GZB4ZZZ Other Electroconvulsive Therapy (ICD-10-PCS; principal; 2022-03-10 09:54)
DX: F31.63 Bipolar disorder, current episode mixed, severe, without psychotic features (principal)
CPT/HCPCS: 90870; 94760

== ENCOUNTER 2022-03-14 08:02 | Day surgery (SDC) | payer OTHER ==
[2022-02-14 14:40] VITALS: BMI 26.6
[2022-03-14] MEDS ORDERED: KETAMINE HCL 500 MG/10 ML VIAL ONE (08:44)
[2022-03-14 10:04] VITALS: TEMP 97.8
[2022-03-14 11:03] VITALS: BP 118/67; PULSE 61
== END 2022-03-14 10:55 | disposition home or self-care (01) ==
LOC: FECT 08:02
PROVIDERS: ATTEND Psychiatry & Neurology Psychiatry
PROC: GZB4ZZZ Other Electroconvulsive Therapy (ICD-10-PCS; principal; 2022-03-14 08:51)
DX: F31.9 Bipolar disorder, unspecified (principal)
CPT/HCPCS: 90870; 94760

== ENCOUNTER 2022-03-17 06:50 | Day surgery (SDC) | payer OTHER ==
[2022-03-14 16:20] VITALS: BMI 26.6
[2022-03-17] MEDS ORDERED: KETAMINE HCL 500 MG/10 ML VIAL ONE (08:19)
[2022-03-17 09:27] VITALS: TEMP 98
[2022-03-17 09:57] VITALS: BP 131/81; PULSE 47
== END 2022-03-17 09:55 | disposition home or self-care (01) ==
LOC: FECT 06:50
PROVIDERS: ATTEND Psychiatry & Neurology Psychiatry
PROC: GZB4ZZZ Other Electroconvulsive Therapy (ICD-10-PCS; principal; 2022-03-17 08:36)
DX: F31.9 Bipolar disorder, unspecified (principal)
CPT/HCPCS: 90870; 94760

== ENCOUNTER 2022-03-21 06:35 | Day surgery (SDC) | payer OTHER ==
[2022-03-15 11:35] VITALS: BMI 26.6
[2022-03-21] MEDS ORDERED: KETOROLAC TROMETHAMINE 30 MG/1 ML VIAL ONE (08:41)
[2022-03-21] MEDS ORDERED: PROPOFOL 20 ML ONE (08:41)
[2022-03-21] MEDS ORDERED: GLYCOPYRROLATE 0.2 MG/1 ML VIAL ONE (08:41)
[2022-03-21] MEDS ORDERED: ONDANSETRON 4 MG/2 ML VIAL ONE (08:41)
[2022-03-21 09:25] VITALS: TEMP 97.7
[2022-03-21 10:32] VITALS: BP 121/73; PULSE 48
[2022-03-21] MEDS ORDERED: ONDANSETRON 4 MG/2 ML VIAL IVPUSH PRN (10:33)
[2022-03-21] MEDS ORDERED: ACETAMINOPHEN 325 MG TABLET (FP) PO PRN (10:33)
== END 2022-03-21 10:10 | disposition home or self-care (01) ==
LOC: FECT 06:35
PROVIDERS: ATTEND Psychiatry & Neurology Psychiatry
PROC: GZB4ZZZ Other Electroconvulsive Therapy (ICD-10-PCS; principal; 2022-03-21 08:49)
DX: F31.9 Bipolar disorder, unspecified (principal)
CPT/HCPCS: 90870; 94760

== ENCOUNTER 2022-03-24 06:34 | Day surgery (SDC) | payer OTHER ==
[2022-03-21 15:10] VITALS: BMI 26.6
[2022-03-24] MEDS ORDERED: KETAMINE HCL 500 MG/10 ML VIAL ONE (07:54)
[2022-03-24 09:16] VITALS: TEMP 97.8
[2022-03-24 09:18] VITALS: BP 145/93; PULSE 52
== END 2022-03-24 09:40 | disposition home or self-care (01) ==
LOC: FECT 06:34
PROVIDERS: ATTEND Psychiatry & Neurology Psychiatry
PROC: GZB4ZZZ Other Electroconvulsive Therapy (ICD-10-PCS; principal; 2022-03-24 08:02)
DX: F31.9 Bipolar disorder, unspecified (principal)
CPT/HCPCS: 90870; 94760

== ENCOUNTER 2022-03-28 06:35 | Day surgery (SDC) | payer OTHER ==
[2022-03-24 17:01] VITALS: BMI 26.6
[2022-03-28] MEDS ORDERED: KETAMINE HCL 500 MG/10 ML VIAL ONE (07:25)
[2022-03-28] MEDS ORDERED: ONDANSETRON 4 MG/2 ML VIAL ONE (07:29)
[2022-03-28] MEDS ORDERED: PROPOFOL 20 ML ONE (07:29)
[2022-03-28] MEDS ORDERED: GLYCOPYRROLATE 0.2 MG/1 ML VIAL ONE (07:29)
[2022-03-28] MEDS ORDERED: SUCCINYLCHOLINE CHLORIDE 200 MG/10 ML SYRINGE ONE (07:29)
[2022-03-28 08:07] VITALS: TEMP 97.6
[2022-03-28 08:50] VITALS: BP 130/84; PULSE 88
[2022-03-28] MEDS ORDERED: ONDANSETRON 4 MG/2 ML VIAL IVPUSH PRN (10:00)
== END 2022-03-28 09:38 | disposition home or self-care (01) ==
LOC: FECT 06:35
PROVIDERS: ATTEND Psychiatry & Neurology Psychiatry
PROC: GZB4ZZZ Other Electroconvulsive Therapy (ICD-10-PCS; principal; 2022-03-28 07:32)
DX: F31.9 Bipolar disorder, unspecified (principal)
CPT/HCPCS: 90870; 94760

== ENCOUNTER 2022-04-04 07:00 | Day surgery (SDC) | payer OTHER ==
[2022-03-29 12:49] VITALS: BMI 26.6
[2022-04-04] MEDS ORDERED: KETOROLAC TROMETHAMINE 30 MG/1 ML VIAL ONE (08:09)
[2022-04-04] MEDS ORDERED: KETAMINE HCL 500 MG/10 ML VIAL ONE (08:09)
[2022-04-04] MEDS ORDERED: GLYCOPYRROLATE 0.2 MG/1 ML VIAL ONE (08:12)
[2022-04-04] MEDS ORDERED: ONDANSETRON 4 MG/2 ML VIAL ONE (08:12)
[2022-04-04] MEDS ORDERED: PROPOFOL 20 ML ONE (08:13)
[2022-04-04] MEDS ORDERED: SUCCINYLCHOLINE CHLORIDE 200 MG/10 ML SYRINGE ONE (08:13)
[2022-04-04 12:30] VITALS: PULSE 56; RESP 16; TEMP 97.9
[2022-04-04 12:34] VITALS: BP 130/89
== END 2022-04-04 10:00 | disposition home or self-care (01) ==
LOC: FECT 07:00
PROVIDERS: ATTEND Psychiatry & Neurology Psychiatry
PROC: GZB4ZZZ Other Electroconvulsive Therapy (ICD-10-PCS; principal; 2022-04-04 08:20)
DX: F31.9 Bipolar disorder, unspecified (principal)
CPT/HCPCS: 90870; 94760

== ENCOUNTER 2022-04-07 06:19 | Day surgery (SDC) | payer OTHER ==
[2022-04-05 15:13] VITALS: BMI 26.6
[2022-04-07] MEDS ORDERED: KETAMINE HCL 500 MG/10 ML VIAL ONE (07:40)
[2022-04-07] MEDS ORDERED: SUCCINYLCHOLINE CHLORIDE 200 MG/10 ML SYRINGE ONE (07:56)
[2022-04-07] MEDS ORDERED: PROPOFOL 20 ML ONE (07:56)
[2022-04-07] MEDS ORDERED: ONDANSETRON 4 MG/2 ML VIAL ONE (08:23)
[2022-04-07] MEDS ORDERED: DEXAMETHASONE SOD PHOSPHATE 4 MG/1 ML VIAL ONE (08:23)
[2022-04-07 09:02] VITALS: PULSE 87; TEMP 97.6
[2022-04-07 09:36] VITALS: BP 135/63; RESP 16
== END 2022-04-07 09:25 | disposition home or self-care (01) ==
LOC: FECT 06:19
PROVIDERS: ATTEND Psychiatry & Neurology Psychiatry
PROC: GZB4ZZZ Other Electroconvulsive Therapy (ICD-10-PCS; principal; 2022-04-07 08:03)
DX: F31.9 Bipolar disorder, unspecified (principal)
CPT/HCPCS: 94760

== ENCOUNTER 2022-04-11 06:26 | Day surgery (SDC) | payer OTHER ==
[2022-04-06 12:13] VITALS: BMI 26.6
[2022-04-11] MEDS ORDERED: KETAMINE HCL 500 MG/10 ML VIAL ONE (07:50)
[2022-04-11] MEDS ORDERED: KETOROLAC TROMETHAMINE 30 MG/1 ML VIAL ONE (07:57)
[2022-04-11] MEDS ORDERED: ONDANSETRON 4 MG/2 ML VIAL ONE (07:57)
[2022-04-11] MEDS ORDERED: GLYCOPYRROLATE 0.2 MG/1 ML VIAL ONE (07:57)
[2022-04-11] MEDS ORDERED: PROPOFOL 20 ML ONE (08:06)
[2022-04-11 09:41] VITALS: TEMP 98
[2022-04-11 09:43] VITALS: BP 131/61; PULSE 51; RESP 18
== END 2022-04-11 09:45 | disposition home or self-care (01) ==
LOC: FECT 06:26
PROVIDERS: ATTEND Psychiatry & Neurology Psychiatry
PROC: GZB4ZZZ Other Electroconvulsive Therapy (ICD-10-PCS; principal; 2022-04-11 08:11)
DX: F31.63 Bipolar disorder, current episode mixed, severe, without psychotic features (principal)
CPT/HCPCS: 90870; 94760

== ENCOUNTER 2022-04-14 06:43 | Day surgery (SDC) | payer OTHER ==
[2022-04-10 13:47] VITALS: BMI 26.6
[2022-04-14] MEDS ORDERED: KETAMINE HCL 500 MG/10 ML VIAL ONE (08:04)
[2022-04-14 09:04] VITALS: RESP 18; TEMP 97.7
[2022-04-14 09:40] VITALS: BP 106/50; PULSE 48
== END 2022-04-14 09:54 | disposition home or self-care (01) ==
LOC: FECT 06:43
PROVIDERS: ATTEND Psychiatry & Neurology Psychiatry
PROC: GZB4ZZZ Other Electroconvulsive Therapy (ICD-10-PCS; principal; 2022-04-14 08:17)
DX: F31.9 Bipolar disorder, unspecified (principal)
CPT/HCPCS: 90870; 94760

== ENCOUNTER 2022-04-18 06:18 | Day surgery (SDC) | payer OTHER ==
[2022-04-11 13:56] VITALS: BMI 26.6
[2022-04-18] MEDS ORDERED: KETAMINE HCL 500 MG/10 ML VIAL ONE (07:37)
[2022-04-18 09:08] VITALS: TEMP 98
[2022-04-18 09:09] VITALS: BP 110/76; PULSE 50; RESP 16
== END 2022-04-18 09:42 | disposition home or self-care (01) ==
LOC: FECT 06:18
PROVIDERS: ATTEND Psychiatry & Neurology Psychiatry
PROC: GZB4ZZZ Other Electroconvulsive Therapy (ICD-10-PCS; principal; 2022-04-18 08:03)
DX: F31.9 Bipolar disorder, unspecified (principal)
CPT/HCPCS: 90870; 94760

== ENCOUNTER 2022-04-21 06:34 | Day surgery (SDC) | payer OTHER ==
[2022-04-17 10:44] VITALS: BMI 26.6
[2022-04-21] MEDS ORDERED: KETAMINE HCL 500 MG/10 ML VIAL ONE (07:54)
[2022-04-21 10:00] VITALS: PULSE 42; RESP 16; TEMP 97.5
[2022-04-21 10:10] VITALS: BP 128/74
== END 2022-04-21 09:50 | disposition home or self-care (01) ==
LOC: FECT 06:34
PROVIDERS: ATTEND Psychiatry & Neurology Psychiatry
PROC: GZB4ZZZ Other Electroconvulsive Therapy (ICD-10-PCS; principal; 2022-04-21 08:18)
DX: F31.9 Bipolar disorder, unspecified (principal)
CPT/HCPCS: 90870; 94760

== ENCOUNTER 2022-04-25 06:19 | Day surgery (SDC) | payer OTHER ==
[2022-04-18 14:08] VITALS: BMI 26.6
[2022-04-25] MEDS ORDERED: KETAMINE HCL 500 MG/10 ML VIAL ONE (06:57)
[2022-04-25] MEDS ORDERED: PROPOFOL 20 ML ONE (07:11)
[2022-04-25] MEDS ORDERED: SUCCINYLCHOLINE CHLORIDE 200 MG/10 ML SYRINGE ONE (07:11)
[2022-04-25 08:07] VITALS: PULSE 52; TEMP 97.8
[2022-04-25 09:08] VITALS: BP 110/64; RESP 18
== END 2022-04-25 09:10 | disposition home or self-care (01) ==
LOC: FECT 06:19
PROVIDERS: ATTEND Psychiatry & Neurology Psychiatry
PROC: GZB4ZZZ Other Electroconvulsive Therapy (ICD-10-PCS; principal; 2022-04-25 07:14)
DX: F31.9 Bipolar disorder, unspecified (principal)
CPT/HCPCS: 90870; 94760

== ENCOUNTER 2022-05-02 06:05 | Day surgery (SDC) | payer OTHER ==
[2022-04-24 18:05] VITALS: BMI 26.6
[2022-05-02] MEDS ORDERED: KETAMINE HCL 500 MG/10 ML VIAL ONE (07:30)
[2022-05-02] MEDS ORDERED: GLYCOPYRROLATE 0.2 MG/1 ML VIAL ONE (07:36)
[2022-05-02 08:07] VITALS: TEMP 97.7
[2022-05-02 08:47] VITALS: BP 115/56; PULSE 54; RESP 17
[2022-05-02] MEDS ORDERED: ACETAMINOPHEN 325 MG TABLET (FP) PO PRN (09:21)
[2022-05-02] MEDS ORDERED: PROMETHAZINE HCL 25 MG/1 ML VIAL IVPUSH PRN (09:21)
[2022-05-02] MEDS ORDERED: LACTATED RINGERS SOLUTION 1,000 ML IV SCH (09:30)
== END 2022-05-02 09:45 | disposition home or self-care (01) ==
LOC: FECT 06:05
PROVIDERS: ATTEND Psychiatry & Neurology Psychiatry
PROC: GZB4ZZZ Other Electroconvulsive Therapy (ICD-10-PCS; principal; 2022-05-02 07:40)
DX: F31.9 Bipolar disorder, unspecified (principal)
CPT/HCPCS: 90870; 94760

== ENCOUNTER 2022-05-05 06:12 | Day surgery (SDC) | payer OTHER ==
[2022-04-25 14:59] VITALS: BMI 26.6
[2022-05-05] MEDS ORDERED: KETAMINE HCL 500 MG/10 ML VIAL ONE (07:27)
[2022-05-05 08:17] VITALS: RESP 16; TEMP 97.5
[2022-05-05 09:10] VITALS: BP 114/48; PULSE 42
== END 2022-05-05 09:05 | disposition home or self-care (01) ==
LOC: FECT 06:12
PROVIDERS: ATTEND Psychiatry & Neurology Psychiatry
PROC: GZB4ZZZ Other Electroconvulsive Therapy (ICD-10-PCS; principal; 2022-05-05 07:30)
DX: F31.9 Bipolar disorder, unspecified (principal)
CPT/HCPCS: 90870; 93005; 93010

== ENCOUNTER 2022-05-09 06:39 | Day surgery (SDC) | payer OTHER ==
[2022-05-04 15:17] VITALS: BMI 26.6
[2022-05-09] MEDS ORDERED: KETAMINE HCL 500 MG/10 ML VIAL ONE (07:56)
[2022-05-09 09:04] VITALS: PULSE 56
[2022-05-09 09:27] VITALS: BP 142/87; RESP 18; TEMP 97.6
== END 2022-05-09 09:36 | disposition home or self-care (01) ==
LOC: FECT 06:39
PROVIDERS: ATTEND Psychiatry & Neurology Psychiatry
PROC: GZB4ZZZ Other Electroconvulsive Therapy (ICD-10-PCS; principal; 2022-05-09 08:11)
DX: F31.9 Bipolar disorder, unspecified (principal)
CPT/HCPCS: 90870; 94760

== ENCOUNTER 2022-05-12 06:27 | Day surgery (SDC) | payer OTHER ==
[2022-05-09 13:44] VITALS: BMI 26.6
[2022-05-12] MEDS ORDERED: PROPOFOL 20 ML ONE (08:44)
[2022-05-12] MEDS ORDERED: ONDANSETRON 4 MG/2 ML VIAL ONE (08:44)
[2022-05-12] MEDS ORDERED: KETOROLAC TROMETHAMINE 30 MG/1 ML VIAL ONE (08:44)
[2022-05-12 09:35] VITALS: TEMP 97.5
[2022-05-12] MEDS ORDERED: ONDANSETRON 4 MG/2 ML VIAL IVPUSH PRN (09:54)
[2022-05-12 10:18] VITALS: RESP 18
[2022-05-12 10:23] VITALS: BP 168/90; PULSE 50
== END 2022-05-12 10:30 | disposition home or self-care (01) ==
LOC: FECT 06:27
PROVIDERS: ATTEND Psychiatry & Neurology Psychiatry
PROC: GZB4ZZZ Other Electroconvulsive Therapy (ICD-10-PCS; principal; 2022-05-12 08:52)
DX: F31.9 Bipolar disorder, unspecified (principal)
CPT/HCPCS: 90870; 94760

== ENCOUNTER → 2022-05-19 | Day surgery (SDC) | payer OTHER ==
[2022-05-18 14:54] VITALS: BMI 26.6
[~2022-05-19] MED LIST changes: +ACETAMINOPHEN 325 MG TABLET (FP) PO PRN; +LACTATED RINGERS SOLUTION 1,000 ML IV SCH; +ONDANSETRON 4 MG/2 ML VIAL IVPUSH PRN; +PROPOFOL 20 ML ONE; +SUCCINYLCHOLINE CHLORIDE 200 MG/10 ML SYRINGE ONE
[2022-05-19 09:53] VITALS: RESP 18; TEMP 97.9
[2022-05-19 10:21] VITALS: BP 121/78; PULSE 54
== END | disposition home or self-care (01) ==
LOC: FECT 06:29
PROVIDERS: ATTEND Psychiatry & Neurology Psychiatry
PROC: GZB4ZZZ Other Electroconvulsive Therapy (ICD-10-PCS; principal; 2022-05-19 08:57)
DX: F31.63 Bipolar disorder, current episode mixed, severe, without psychotic features (principal)
CPT/HCPCS: 90870; 94760

== ENCOUNTER 2022-05-23 06:41 | Day surgery (SDC) | payer OTHER ==
[2022-05-22 15:55] VITALS: BMI 26.6
[2022-05-23] MEDS ORDERED: KETAMINE HCL 500 MG/10 ML VIAL ONE (08:04)
[2022-05-23 08:56] VITALS: TEMP 98
[2022-05-23 08:59] VITALS: RESP 18
[2022-05-23 09:34] VITALS: BP 131/77; PULSE 54
== END 2022-05-23 09:40 | disposition home or self-care (01) ==
LOC: FECT 06:41
PROVIDERS: ATTEND Psychiatry & Neurology Psychiatry
PROC: GZB4ZZZ Other Electroconvulsive Therapy (ICD-10-PCS; principal; 2022-05-23 08:21)
DX: F31.63 Bipolar disorder, current episode mixed, severe, without psychotic features (principal)
CPT/HCPCS: 90870; 94760

== ENCOUNTER 2022-05-26 06:21 | Day surgery (SDC) | payer OTHER ==
[2022-05-23 18:24] VITALS: BMI 25.8
[2022-05-26] MEDS ORDERED: KETAMINE HCL 500 MG/10 ML VIAL ONE (07:47)
[2022-05-26 08:23] VITALS: TEMP 97.3
[2022-05-26 08:58] VITALS: RESP 18
[2022-05-26 09:12] VITALS: BP 125/89; PULSE 56
== END 2022-05-26 09:10 | disposition home or self-care (01) ==
LOC: FECT 06:21
PROVIDERS: ATTEND Psychiatry & Neurology Psychiatry
PROC: GZB4ZZZ Other Electroconvulsive Therapy (ICD-10-PCS; principal; 2022-05-26 08:01)
DX: F31.9 Bipolar disorder, unspecified (principal)
CPT/HCPCS: 90870; 94760; C9803-CS; U0003; U0005

== ENCOUNTER 2022-05-29 06:35 | Day surgery (SDC) | payer OTHER ==
[2022-05-25 16:20] VITALS: BMI 26.6
[2022-05-29] MEDS ORDERED: KETAMINE HCL 500 MG/10 ML VIAL ONE (07:55)
[2022-05-29 09:06] VITALS: RESP 18; TEMP 97.3
[2022-05-29 09:36] VITALS: BP 121/77; PULSE 52
== END 2022-05-29 09:40 | disposition home or self-care (01) ==
LOC: FECT 06:35
PROVIDERS: ATTEND Psychiatry & Neurology Psychiatry
PROC: GZB4ZZZ Other Electroconvulsive Therapy (ICD-10-PCS; principal; 2022-05-29 08:11)
DX: F31.63 Bipolar disorder, current episode mixed, severe, without psychotic features (principal)
CPT/HCPCS: 90870; 94760

== ENCOUNTER 2022-06-06 06:30 | Day surgery (SDC) | payer OTHER ==
[2022-06-06 08:30] LABS: HEMATOCRIT 37.4 % (35.4-49); HEMOGLOBIN 12.7 G/dL (11.7-16.9); MCH 31.7 pg (25.7-33.7); MCHC 34.1 g/dl (32.0-35.9); MEAN CELL VOLUME 93.1 fl (80-96); MEAN PLT VOLUME 8.4 fl (7.5-11.1); PLATELET COUNT 203.6 10^3/uL (134-434); RBC 4.02 10^6/uL (4.00-5.60); RDW 13.7 % (11.9-15.9)
[2022-06-06 08:31] LABS: CALCIUM 9.3 mg/dl (8.5-10)
[2022-06-06] MEDS ORDERED: KETAMINE HCL 500 MG/10 ML VIAL ONE (08:47)
[2022-06-06 09:25] VITALS: TEMP 97.3
[2022-06-06 10:01] VITALS: RESP 18
[2022-06-06 10:23] VITALS: BP 149/90; PULSE 49
[2022-06-06 12:21] VITALS: BMI 25.4
== END 2022-06-06 10:20 | disposition home or self-care (01) ==
LOC: FECT 06:30
PROVIDERS: ATTEND Psychiatry & Neurology Psychiatry
PROC: GZB4ZZZ Other Electroconvulsive Therapy (ICD-10-PCS; principal; 2022-06-06 08:57)
DX: F31.9 Bipolar disorder, unspecified (principal)
CPT/HCPCS: 36415; 80048; 85027; 90870; 94760

== ENCOUNTER 2022-06-09 08:57 | Day surgery (SDC) | payer OTHER ==
[2022-06-09 09:38] VITALS: BMI 25.4
[2022-06-09 11:50] VITALS: RESP 16
[2022-06-09 12:32] VITALS: BP 133/66; PULSE 47; TEMP 97.7
== END 2022-06-09 12:45 | disposition home or self-care (01) ==
LOC: FECT 08:57
PROVIDERS: ATTEND Psychiatry & Neurology Psychiatry
PROC: GZB4ZZZ Other Electroconvulsive Therapy (ICD-10-PCS; principal; 2022-06-09 11:15)
DX: F31.9 Bipolar disorder, unspecified (principal)
CPT/HCPCS: 90870; 94760

== ENCOUNTER → 2022-06-16 | Day surgery (SDC) | payer OTHER ==
[2022-06-16 07:31] VITALS: BMI 25.1
[2022-06-16 10:07] VITALS: RESP 18; TEMP 97.3
[2022-06-16 10:32] VITALS: BP 106/56; PULSE 54
== END | disposition home or self-care (01) ==
LOC: FECT 06:39
PROVIDERS: ATTEND Psychiatry & Neurology Psychiatry
PROC: GZB4ZZZ Other Electroconvulsive Therapy (ICD-10-PCS; principal; 2022-06-16 09:12)
DX: F31.9 Bipolar disorder, unspecified (principal)
CPT/HCPCS: 90870; 94760; C9803-CS; U0003; U0005

== ENCOUNTER 2022-06-20 08:05 | Day surgery (SDC) | payer OTHER ==
[2022-06-16 15:31] VITALS: BMI 25.1
[2022-06-20] MEDS ORDERED: KETAMINE HCL 500 MG/10 ML VIAL ONE (09:21)
[2022-06-20] MEDS ORDERED: ONDANSETRON 4 MG/2 ML VIAL ONE (10:39)
[2022-06-20] MEDS ORDERED: ONDANSETRON 4 MG/2 ML VIAL IVPB PRN (10:43)
[2022-06-20] MEDS ORDERED: LABETALOL HCL 5 MG/1 ML (100MG/20 ML VIAL) IVPUSH ONE (10:44)
[2022-06-20] MEDS ORDERED: LORazepam 2 MG/ML SDV VIAL IVPUSH ONE (12:00)
[2022-06-20 12:23] VITALS: RESP 18; TEMP 97.1
[2022-06-20 13:03] VITALS: BP 145/84; PULSE 56
== END 2022-06-20 12:45 | disposition home or self-care (01) ==
LOC: FECT 08:05
PROVIDERS: ATTEND Psychiatry & Neurology Psychiatry
PROC: GZB4ZZZ Other Electroconvulsive Therapy (ICD-10-PCS; principal; 2022-06-20 09:38)
DX: F31.9 Bipolar disorder, unspecified (principal)
CPT/HCPCS: 90870; 94760; C9803-CS; U0003; U0005

== ENCOUNTER 2022-06-23 07:33 | Day surgery (SDC) | payer OTHER ==
[2022-06-23 08:17] VITALS: BMI 24.7
[2022-06-23] MEDS ORDERED: KETAMINE HCL 500 MG/10 ML VIAL ONE (08:33)
[2022-06-23 10:10] VITALS: PULSE 54; RESP 16; TEMP 97.1
[2022-06-23 10:58] VITALS: BP 124/72
== END 2022-06-23 10:40 | disposition home or self-care (01) ==
LOC: FECT 07:33
PROVIDERS: ATTEND Psychiatry & Neurology Psychiatry
PROC: GZB4ZZZ Other Electroconvulsive Therapy (ICD-10-PCS; principal; 2022-06-23 08:47)
DX: F31.63 Bipolar disorder, current episode mixed, severe, without psychotic features (principal)
CPT/HCPCS: 90870; 94760

== ENCOUNTER 2022-06-30 06:33 | Day surgery (SDC) | payer OTHER ==
[2022-06-27 08:25] VITALS: BMI 24.7
[2022-06-30 07:22] VITALS: TEMP 98
[2022-06-30 09:55] VITALS: BP 144/89; PULSE 55; RESP 18
== END 2022-06-30 09:55 | disposition home or self-care (01) ==
LOC: FECT 06:33
PROVIDERS: ATTEND Psychiatry & Neurology Psychiatry
PROC: GZB4ZZZ Other Electroconvulsive Therapy (ICD-10-PCS; principal; 2022-06-30 08:41)
DX: F31.9 Bipolar disorder, unspecified (principal)
CPT/HCPCS: 90870; 94760; C9803-CS; U0003; U0005

== ENCOUNTER → 2022-07-04 | Day surgery (SDC) | payer OTHER ==
[2022-06-30 17:48] VITALS: BMI 24.6
[~2022-07-04] MED LIST changes: -ACETAMINOPHEN 325 MG TABLET (FP) PO PRN; -PROPOFOL 20 ML ONE; -SUCCINYLCHOLINE CHLORIDE 200 MG/10 ML SYRINGE ONE
[2022-07-04 09:21] VITALS: TEMP 98
[2022-07-04 10:19] VITALS: RESP 18
[2022-07-04 10:42] VITALS: BP 157/78; PULSE 55
== END | disposition home or self-care (01) ==
LOC: FECT 08:10
PROVIDERS: ATTEND Psychiatry & Neurology Psychiatry
PROC: GZB4ZZZ Other Electroconvulsive Therapy (ICD-10-PCS; principal; 2022-07-04 08:54)
DX: F31.9 Bipolar disorder, unspecified (principal)
CPT/HCPCS: 90870; 94760; C9803-CS; U0003; U0005

== ENCOUNTER 2022-07-06 08:21 | Day surgery (SDC) | payer OTHER ==
[2022-07-03 18:21] VITALS: BMI 24.6
[2022-07-06] MEDS ORDERED: KETAMINE HCL 500 MG/10 ML VIAL ONE (09:46)
[2022-07-06 12:01] VITALS: BP 133/77; PULSE 59; RESP 18; TEMP 98
== END 2022-07-06 11:45 | disposition home or self-care (01) ==
LOC: FECT 08:21
PROVIDERS: ATTEND Psychiatry & Neurology Psychiatry
PROC: GZB4ZZZ Other Electroconvulsive Therapy (ICD-10-PCS; principal; 2022-07-06 10:07)
DX: F31.9 Bipolar disorder, unspecified (principal)
CPT/HCPCS: 90870; 94760

== ENCOUNTER 2022-07-14 08:13 | Day surgery (SDC) | payer OTHER ==
[2022-07-10 10:39] VITALS: BMI 24.6
[2022-07-14] MEDS ORDERED: KETAMINE HCL 500 MG/10 ML VIAL ONE (10:20)
[2022-07-14] MEDS ORDERED: ONDANSETRON 4 MG/2 ML VIAL IVPUSH PRN (10:52)
[2022-07-14] MEDS ORDERED: ACETAMINOPHEN 325 MG TABLET (FP) PO PRN (10:52)
[2022-07-14] MEDS ORDERED: PROMETHAZINE HCL 25 MG/1 ML VIAL IVPUSH PRN (10:52)
[2022-07-14] MEDS ORDERED: LACTATED RINGERS SOLUTION 1,000 ML IV SCH (11:00)
[2022-07-14 11:45] VITALS: BP 142/81; PULSE 56; RESP 16; TEMP 98.4
== END 2022-07-14 12:05 | disposition home or self-care (01) ==
LOC: FECT 08:13
PROVIDERS: ATTEND Psychiatry & Neurology Psychiatry
PROC: GZB4ZZZ Other Electroconvulsive Therapy (ICD-10-PCS; principal; 2022-07-14 10:31)
DX: F31.9 Bipolar disorder, unspecified (principal)
CPT/HCPCS: 90870; 94760; C9803-CS; U0003; U0005

== ENCOUNTER 2022-07-18 07:35 | Day surgery (SDC) | payer OTHER ==
[2022-07-17 11:15] VITALS: BMI 24.6
[2022-07-18] MEDS ORDERED: KETAMINE HCL 500 MG/10 ML VIAL ONE (08:25)
[2022-07-18 09:35] VITALS: RESP 18; TEMP 97.3
[2022-07-18 10:30] VITALS: BP 128/81; PULSE 53
== END 2022-07-18 10:32 | disposition home or self-care (01) ==
LOC: FECT 07:35
PROVIDERS: ATTEND Psychiatry & Neurology Psychiatry
PROC: GZB4ZZZ Other Electroconvulsive Therapy (ICD-10-PCS; principal; 2022-07-18 08:34)
DX: F31.9 Bipolar disorder, unspecified (principal)
CPT/HCPCS: 90870; 94760; C9803-CS; U0003; U0005

== ENCOUNTER 2022-07-20 06:04 | Day surgery (SDC) | payer OTHER ==
[2022-07-17 16:30] VITALS: BMI 24.6
[2022-07-20] MEDS ORDERED: KETAMINE HCL 500 MG/10 ML VIAL ONE (07:16)
[2022-07-20 08:20] VITALS: RESP 18
[2022-07-20 08:37] VITALS: BP 133/63; PULSE 55; TEMP 97.9
== END 2022-07-20 08:45 | disposition home or self-care (01) ==
LOC: FECT 06:04
PROVIDERS: ATTEND Psychiatry & Neurology Psychiatry
PROC: GZB4ZZZ Other Electroconvulsive Therapy (ICD-10-PCS; principal; 2022-07-20 07:36)
DX: F31.63 Bipolar disorder, current episode mixed, severe, without psychotic features (principal)
CPT/HCPCS: 90870; 94760

== ENCOUNTER 2022-07-25 06:12 | Day surgery (SDC) | payer OTHER ==
[2022-07-21 16:37] VITALS: BMI 24.6
[2022-07-25] MEDS ORDERED: KETAMINE HCL 500 MG/10 ML VIAL ONE (07:22)
[2022-07-25 08:16] VITALS: RESP 18
[2022-07-25 09:49] VITALS: BP 144/91; PULSE 56; TEMP 98
== END 2022-07-25 09:10 | disposition home or self-care (01) ==
LOC: FECT 06:12
PROVIDERS: ATTEND Psychiatry & Neurology Psychiatry
PROC: GZB4ZZZ Other Electroconvulsive Therapy (ICD-10-PCS; principal; 2022-07-25 07:41)
DX: F31.9 Bipolar disorder, unspecified (principal)
CPT/HCPCS: 90870; 94760

== ENCOUNTER 2022-07-27 06:32 | Day surgery (SDC) | payer OTHER ==
[2022-07-25 15:16] VITALS: BMI 24.6
[2022-07-27] MEDS ORDERED: KETAMINE HCL 500 MG/10 ML VIAL ONE (08:43)
[2022-07-27 09:57] VITALS: RESP 18; TEMP 98
[2022-07-27 10:54] VITALS: BP 150/78; PULSE 62
== END 2022-07-27 10:20 | disposition home or self-care (01) ==
LOC: FECT 06:32
PROVIDERS: ATTEND Psychiatry & Neurology Psychiatry
PROC: GZB4ZZZ Other Electroconvulsive Therapy (ICD-10-PCS; principal; 2022-07-27 09:07)
DX: F31.9 Bipolar disorder, unspecified (principal)
CPT/HCPCS: 90870; 94760

== ENCOUNTER 2022-08-01 07:43 | Day surgery (SDC) | payer OTHER ==
[2022-07-27 12:16] VITALS: BMI 24.6
[2022-08-01] MEDS ORDERED: KETAMINE HCL 500 MG/10 ML VIAL ONE (08:51)
[2022-08-01 09:53] VITALS: BP 134/80; PULSE 52; RESP 18; TEMP 98.4
== END 2022-08-01 10:45 | disposition home or self-care (01) ==
LOC: FECT 07:43
PROVIDERS: ATTEND Psychiatry & Neurology Psychiatry
PROC: GZB4ZZZ Other Electroconvulsive Therapy (ICD-10-PCS; principal; 2022-08-01 09:02)
DX: F31.9 Bipolar disorder, unspecified (principal)
CPT/HCPCS: 90870; 94760

== ENCOUNTER 2022-08-14 06:16 | Day surgery (SDC) | payer OTHER ==
[2022-08-08 13:01] VITALS: BMI 24.6
[2022-08-14] MEDS ORDERED: KETAMINE HCL 500 MG/10 ML VIAL ONE (07:35)
[2022-08-14] MEDS ORDERED: SUCCINYLCHOLINE CHLORIDE 200 MG/10 ML SYRINGE ONE (07:37)
[2022-08-14] MEDS ORDERED: PROPOFOL 20 ML ONE (07:37)
[2022-08-14] MEDS ORDERED: GLYCOPYRROLATE 0.2 MG/1 ML VIAL ONE (07:47)
[2022-08-14 08:39] VITALS: RESP 18; TEMP 98.1
[2022-08-14 09:59] VITALS: BP 124/62; PULSE 61
== END 2022-08-14 09:30 | disposition home or self-care (01) ==
LOC: FECT 06:16
PROVIDERS: ATTEND Psychiatry & Neurology Psychiatry
PROC: GZB4ZZZ Other Electroconvulsive Therapy (ICD-10-PCS; principal; 2022-08-14 07:50)
DX: F31.63 Bipolar disorder, current episode mixed, severe, without psychotic features (principal)
CPT/HCPCS: 90870; 94760; C9803-CS; U0003; U0005

== ENCOUNTER 2022-08-18 06:29 | Day surgery (SDC) | payer OTHER ==
[2022-08-16 15:45] VITALS: BMI 24.6
[2022-08-18] MEDS ORDERED: KETAMINE HCL 500 MG/10 ML VIAL ONE (08:31)
[2022-08-18] MEDS ORDERED: ONDANSETRON 4 MG/2 ML VIAL ONE (08:31)
[2022-08-18] MEDS ORDERED: PROPOFOL 20 ML ONE (08:39)
[2022-08-18 09:09] VITALS: TEMP 97.8
[2022-08-18 09:51] VITALS: RESP 18
[2022-08-18 10:09] VITALS: BP 139/76; PULSE 54
== END 2022-08-18 10:05 | disposition home or self-care (01) ==
LOC: FECT 06:29
PROVIDERS: ATTEND Psychiatry & Neurology Psychiatry
PROC: GZB4ZZZ Other Electroconvulsive Therapy (ICD-10-PCS; principal; 2022-08-18 08:47)
DX: F31.9 Bipolar disorder, unspecified (principal)
CPT/HCPCS: 90870; 94760; C9803-CS; U0003; U0005

== ENCOUNTER 2022-08-22 06:21 | Day surgery (SDC) | payer OTHER ==
[2022-08-21 08:31] VITALS: BMI 24.6
[2022-08-22] MEDS ORDERED: KETAMINE HCL 500 MG/10 ML VIAL ONE (08:56)
[2022-08-22] MEDS ORDERED: PROPOFOL 20 ML ONE (09:44)
[2022-08-22] MEDS ORDERED: SUCCINYLCHOLINE CHLORIDE 200 MG/10 ML SYRINGE ONE (09:46)
[2022-08-22 10:00] VITALS: RESP 18; TEMP 97.8
[2022-08-22 10:42] VITALS: BP 118/76; PULSE 53
== END 2022-08-22 10:20 | disposition home or self-care (01) ==
LOC: FECT 06:21
PROVIDERS: ATTEND Psychiatry & Neurology Psychiatry
PROC: GZB4ZZZ Other Electroconvulsive Therapy (ICD-10-PCS; principal; 2022-08-22 09:04)
DX: F31.63 Bipolar disorder, current episode mixed, severe, without psychotic features (principal)
CPT/HCPCS: 90870; 94760; C9803-CS; U0003; U0005

== ENCOUNTER 2022-08-25 09:22 | Day surgery (SDC) | payer OTHER ==
[2022-08-25 09:45] VITALS: BMI 26.4
[2022-08-25] MEDS ORDERED: KETAMINE HCL 500 MG/10 ML VIAL ONE (10:19)
[2022-08-25 11:40] VITALS: RESP 18; TEMP 97.2
[2022-08-25 12:32] VITALS: BP 135/79; PULSE 54
== END 2022-08-25 12:00 | disposition home or self-care (01) ==
LOC: FECT 09:22
PROVIDERS: ATTEND Psychiatry & Neurology Psychiatry
PROC: GZB4ZZZ Other Electroconvulsive Therapy (ICD-10-PCS; principal; 2022-08-25 10:32)
DX: F31.9 Bipolar disorder, unspecified (principal)
CPT/HCPCS: 90870; 94760; C9803-CS; U0003; U0005

== ENCOUNTER 2022-08-29 06:08 | Day surgery (SDC) | payer OTHER ==
[2022-08-28 09:36] VITALS: BMI 26.2
[2022-08-29 06:34] VITALS: RESP 16
[2022-08-29] MEDS ORDERED: PROPOFOL 40 ML ONE (07:44)
[2022-08-29] MEDS ORDERED: SUCCINYLCHOLINE CHLORIDE 200 MG/10 ML SYRINGE ONE (07:44)
[2022-08-29] MEDS ORDERED: KETAMINE HCL 200 MG/20 ML VIAL ONE (07:44)
[2022-08-29 08:50] VITALS: TEMP 97.6
[2022-08-29 09:50] VITALS: BP 141/78; PULSE 52
== END 2022-08-29 09:20 | disposition home or self-care (01) ==
LOC: FECT 06:08
PROVIDERS: ATTEND Psychiatry & Neurology Psychiatry
PROC: GZB4ZZZ Other Electroconvulsive Therapy (ICD-10-PCS; principal; 2022-08-29 07:49)
DX: F31.9 Bipolar disorder, unspecified (principal)
CPT/HCPCS: 90870; 94760; C9803-CS; U0003; U0005

== ENCOUNTER 2022-09-01 08:03 | Day surgery (SDC) | payer OTHER ==
[2022-08-28 09:43] VITALS: BMI 26.2
[2022-09-01] MEDS ORDERED: KETAMINE HCL 500 MG/10 ML VIAL ONE (09:16)
[2022-09-01 10:58] VITALS: TEMP 97.8
[2022-09-01 11:00] VITALS: RESP 18
[2022-09-01 11:18] VITALS: BP 119/69; PULSE 51
== END 2022-09-01 11:18 | disposition home or self-care (01) ==
LOC: FECT 08:03
PROVIDERS: ATTEND Psychiatry & Neurology Psychiatry
PROC: GZB4ZZZ Other Electroconvulsive Therapy (ICD-10-PCS; principal; 2022-09-01 09:32)
DX: F31.9 Bipolar disorder, unspecified (principal)
CPT/HCPCS: 90870; 94760

== ENCOUNTER 2022-09-15 08:05 | Day surgery (SDC) | payer OTHER ==
[2022-09-07 11:24] VITALS: BMI 26.2
[2022-09-15] MEDS ORDERED: KETAMINE HCL 500 MG/10 ML VIAL ONE (10:30)
[2022-09-15] MEDS ORDERED: GLYCOPYRROLATE 0.2 MG/1 ML VIAL ONE (10:34)
[2022-09-15 11:32] VITALS: TEMP 97.7
[2022-09-15 12:01] VITALS: BP 145/74; PULSE 50; RESP 18
== END 2022-09-15 12:04 | disposition home or self-care (01) ==
LOC: FECT 08:05
PROVIDERS: ATTEND Psychiatry & Neurology Psychiatry
PROC: GZB4ZZZ Other Electroconvulsive Therapy (ICD-10-PCS; principal; 2022-09-15 10:44)
DX: F31.9 Bipolar disorder, unspecified (principal)
CPT/HCPCS: 90870; 94760; C9803-CS; U0003; U0005

== ENCOUNTER → 2022-09-19 | Day surgery (SDC) | payer OTHER ==
[2022-09-15 14:41] VITALS: BMI 26.2
[~2022-09-19] MED LIST changes: +GLYCOPYRROLATE 0.2 MG/1 ML VIAL ONE; -LACTATED RINGERS SOLUTION 1,000 ML IV SCH; -ONDANSETRON 4 MG/2 ML VIAL IVPUSH PRN; +PROPOFOL 20 ML ONE
[2022-09-19 10:54] VITALS: BP 128/76; PULSE 50; RESP 20; TEMP 97.8
== END | disposition home or self-care (01) ==
LOC: FECT 06:58
PROVIDERS: ATTEND Psychiatry & Neurology Psychiatry
PROC: GZB4ZZZ Other Electroconvulsive Therapy (ICD-10-PCS; principal; 2022-09-19 08:55)
DX: F31.9 Bipolar disorder, unspecified (principal)
CPT/HCPCS: 90870; 94760; C9803-CS; U0003; U0005

== ENCOUNTER 2022-09-22 06:25 | Day surgery (SDC) | payer OTHER ==
[2022-09-19 16:09] VITALS: BMI 26.2
[2022-09-22] MEDS ORDERED: KETAMINE HCL 500 MG/10 ML VIAL ONE (08:41)
[2022-09-22 10:07] VITALS: RESP 18; TEMP 97.8
[2022-09-22 10:11] VITALS: BP 121/75; PULSE 77
== END 2022-09-22 10:15 | disposition home or self-care (01) ==
LOC: FECT 06:25
PROVIDERS: ATTEND Psychiatry & Neurology Psychiatry
PROC: GZB4ZZZ Other Electroconvulsive Therapy (ICD-10-PCS; principal; 2022-09-22 08:52)
DX: F31.9 Bipolar disorder, unspecified (principal)
CPT/HCPCS: 90870; 94760

== ENCOUNTER 2022-10-13 08:46 | Day surgery (SDC) | payer OTHER ==
[2022-09-22 15:46] VITALS: BMI 26.2
[2022-10-13] MEDS ORDERED: KETAMINE HCL 500 MG/10 ML VIAL ONE (10:24)
[2022-10-13 11:39] VITALS: RESP 16; TEMP 97.7
[2022-10-13 12:31] VITALS: BP 132/72; PULSE 58
== END 2022-10-13 12:00 | disposition home or self-care (01) ==
LOC: FECT 08:46
PROVIDERS: ATTEND Psychiatry & Neurology Psychiatry
PROC: GZB4ZZZ Other Electroconvulsive Therapy (ICD-10-PCS; principal; 2022-10-13 10:35)
DX: F31.9 Bipolar disorder, unspecified (principal)
CPT/HCPCS: 90870; 94760

== ENCOUNTER 2022-10-20 07:05 | Day surgery (SDC) | payer OTHER ==
[2022-10-20 07:41] VITALS: BMI 26.2
[2022-10-20] MEDS ORDERED: KETAMINE HCL 500 MG/10 ML VIAL ONE (08:35)
[2022-10-20 10:18] VITALS: PULSE 62; RESP 18
[2022-10-20 10:20] VITALS: BP 118/72; TEMP 97
== END 2022-10-20 10:20 | disposition home or self-care (01) ==
LOC: FECT 07:05
PROVIDERS: ATTEND Psychiatry & Neurology Psychiatry
PROC: GZB4ZZZ Other Electroconvulsive Therapy (ICD-10-PCS; principal; 2022-10-20 08:53)
DX: F31.9 Bipolar disorder, unspecified (principal)
CPT/HCPCS: 90870; 94760

== ENCOUNTER 2022-10-24 08:20 | Day surgery (SDC) | payer OTHER ==
[2022-10-23 09:03] VITALS: BMI 26.2
[~2022-10-24 08:20] MED LIST changes: -GLYCOPYRROLATE 0.2 MG/1 ML VIAL ONE; -KETAMINE HCL 500 MG/10 ML VIAL ONE; +LACTATED RINGERS SOLUTION 1,000 ML IV SCH; -PROPOFOL 20 ML ONE
[2022-10-24] MEDS ORDERED: KETAMINE HCL 500 MG/10 ML VIAL ONE (10:47)
[2022-10-24 12:10] VITALS: BP 147/81; PULSE 56; RESP 16; TEMP 97.8
== END 2022-10-24 12:20 | disposition home or self-care (01) ==
LOC: FECT 08:20
PROVIDERS: ATTEND Psychiatry & Neurology Psychiatry
PROC: GZB4ZZZ Other Electroconvulsive Therapy (ICD-10-PCS; principal; 2022-10-24 10:58)
DX: F31.63 Bipolar disorder, current episode mixed, severe, without psychotic features (principal)
CPT/HCPCS: 90870; 94760

== ENCOUNTER 2022-10-27 08:00 | Day surgery (SDC) | payer OTHER ==
[2022-10-23 09:07] VITALS: BMI 26.2
[2022-10-27] MEDS ORDERED: KETAMINE HCL 500 MG/10 ML VIAL ONE (09:03)
[2022-10-27 11:13] VITALS: RESP 18
[2022-10-27 11:19] VITALS: BP 132/72; PULSE 70; TEMP 97.6
== END 2022-10-27 11:19 | disposition home or self-care (01) ==
LOC: FECT 08:00
PROVIDERS: ATTEND Psychiatry & Neurology Psychiatry
PROC: GZB4ZZZ Other Electroconvulsive Therapy (ICD-10-PCS; principal; 2022-10-27 09:19)
DX: F31.9 Bipolar disorder, unspecified (principal)
CPT/HCPCS: 90870; 94760

== ENCOUNTER 2022-11-03 08:05 | Day surgery (SDC) | payer OTHER ==
[2022-10-25 12:02] VITALS: BMI 27.3
[2022-11-03] MEDS ORDERED: KETAMINE HCL 500 MG/10 ML VIAL ONE (09:00)
[2022-11-03 10:25] VITALS: BP 140/80; PULSE 64; RESP 18; TEMP 97
== END 2022-11-03 10:20 | disposition home or self-care (01) ==
LOC: FECT 08:05
PROVIDERS: ATTEND Psychiatry & Neurology Psychiatry
PROC: GZB4ZZZ Other Electroconvulsive Therapy (ICD-10-PCS; principal; 2022-11-03 09:08)
DX: F31.63 Bipolar disorder, current episode mixed, severe, without psychotic features (principal)
CPT/HCPCS: 90870; 94760

== ENCOUNTER 2022-11-10 08:09 | Day surgery (SDC) | payer OTHER ==
[2022-11-10 08:54] VITALS: BMI 27.3
[2022-11-10] MEDS ORDERED: KETAMINE HCL 500 MG/10 ML VIAL ONE (09:46)
[2022-11-10 10:52] VITALS: RESP 16
[2022-11-10 11:45] VITALS: TEMP 97.4
[2022-11-10 11:46] VITALS: BP 112/76; PULSE 68
[2022-11-10] MEDS ORDERED: LACTATED RINGERS SOLUTION 1,000 ML IV SCH (14:15)
== END 2022-11-10 11:40 | disposition home or self-care (01) ==
LOC: FECT 08:09
PROVIDERS: ATTEND Psychiatry & Neurology Psychiatry
PROC: GZB4ZZZ Other Electroconvulsive Therapy (ICD-10-PCS; principal; 2022-11-10 09:57)
DX: F31.9 Bipolar disorder, unspecified (principal)
CPT/HCPCS: 90870; 93005; 93010; 94760

== ENCOUNTER 2022-11-17 07:37 | Day surgery (SDC) | payer OTHER ==
[2022-11-13 14:49] VITALS: BMI 27.3
[2022-11-17] MEDS ORDERED: LACTATED RINGERS SOLUTION 1,000 ML IV SCH (08:00)
[2022-11-17] MEDS ORDERED: KETAMINE HCL 500 MG/10 ML VIAL ONE (08:32)
[2022-11-17 09:47] VITALS: RESP 16; TEMP 97.8
[2022-11-17 10:12] VITALS: BP 154/84; PULSE 56
== END 2022-11-17 10:40 | disposition home or self-care (01) ==
LOC: FECT 07:37
PROVIDERS: ATTEND Psychiatry & Neurology Psychiatry
PROC: GZB4ZZZ Other Electroconvulsive Therapy (ICD-10-PCS; principal; 2022-11-17 08:54)
DX: F31.9 Bipolar disorder, unspecified (principal)
CPT/HCPCS: 90870; 94760

== ENCOUNTER → 2022-11-23 | Day surgery (SDC) | payer OTHER ==
[~2022-11-23] MED LIST changes: +KETAMINE HCL 200 MG/20 ML VIAL ONE; +KETAMINE HCL 500 MG/10 ML VIAL ONE; -LACTATED RINGERS SOLUTION 1,000 ML IV SCH
[2022-11-23 10:13] VITALS: BP 120/43; TEMP 97.9
[2022-11-23 10:32] VITALS: PULSE 49; RESP 16
== END | disposition home or self-care (01) ==
LOC: FECT 07:34
PROVIDERS: ATTEND Psychiatry & Neurology Psychiatry
PROC: GZB4ZZZ Other Electroconvulsive Therapy (ICD-10-PCS; principal; 2022-11-23 09:03)
DX: F32.A Depression, unspecified (principal)
CPT/HCPCS: 90870; 94760

== ENCOUNTER 2022-11-30 07:44 | Day surgery (SDC) | payer OTHER ==
[2022-11-30 08:38] VITALS: BMI 25.7
[2022-11-30 10:55] VITALS: RESP 16; TEMP 97.8
[2022-11-30 11:46] VITALS: BP 116/74; PULSE 56
== END 2022-11-30 11:45 | disposition home or self-care (01) ==
LOC: FECT 07:44
PROVIDERS: ATTEND Psychiatry & Neurology Psychiatry
PROC: GZB4ZZZ Other Electroconvulsive Therapy (ICD-10-PCS; principal; 2022-11-30 10:08)
DX: F31.9 Bipolar disorder, unspecified (principal)
CPT/HCPCS: 90870; 94760

== ENCOUNTER 2022-12-07 07:35 | Day surgery (SDC) | payer OTHER ==
[2022-12-01 17:33] VITALS: BMI 27.3
[~2022-12-07 07:35] MED LIST changes: -KETAMINE HCL 200 MG/20 ML VIAL ONE; -KETAMINE HCL 500 MG/10 ML VIAL ONE; +LACTATED RINGERS SOLUTION 1,000 ML IV SCH
[2022-12-07] MEDS ORDERED: KETAMINE HCL 500 MG/10 ML VIAL ONE (08:54)
[2022-12-07 10:00] VITALS: RESP 16
[2022-12-07 10:29] VITALS: TEMP 97.6
[2022-12-07 10:52] VITALS: BP 142/75; PULSE 61
== END 2022-12-07 11:00 | disposition home or self-care (01) ==
LOC: FECT 07:35
PROVIDERS: ATTEND Psychiatry & Neurology Psychiatry
PROC: GZB4ZZZ Other Electroconvulsive Therapy (ICD-10-PCS; principal; 2022-12-07 09:37)
DX: F31.9 Bipolar disorder, unspecified (principal)
CPT/HCPCS: 90870; 94760

== ENCOUNTER 2022-12-14 07:38 | Day surgery (SDC) | payer OTHER ==
[2022-12-08 16:41] VITALS: BMI 27.3
[2022-12-14] MEDS ORDERED: KETAMINE HCL 500 MG/10 ML VIAL ONE (09:23)
[2022-12-14 09:47] VITALS: RESP 18; TEMP 97.6
[2022-12-14 10:01] VITALS: BP 138/74; PULSE 48
== END 2022-12-14 10:30 | disposition home or self-care (01) ==
LOC: FECT 07:38
PROVIDERS: ATTEND Psychiatry & Neurology Psychiatry
PROC: GZB4ZZZ Other Electroconvulsive Therapy (ICD-10-PCS; principal; 2022-12-14 08:54)
DX: F31.9 Bipolar disorder, unspecified (principal)
CPT/HCPCS: 90870; 94760

== ENCOUNTER → 2023-01-04 | Day surgery (SDC) | payer OTHER ==
[2023-01-01 13:02] VITALS: BMI 27.3
[2023-01-04 11:59] VITALS: BP 133/87; RESP 16; TEMP 97.8
[2023-01-04 12:58] VITALS: PULSE 74
== END | disposition home or self-care (01) ==
LOC: FECT 09:29
PROVIDERS: ATTEND Psychiatry & Neurology Psychiatry
PROC: GZB4ZZZ Other Electroconvulsive Therapy (ICD-10-PCS; principal; 2023-01-04 11:09)
DX: F32.A Depression, unspecified (principal)
CPT/HCPCS: 90870; 94760

== ENCOUNTER → 2023-01-11 | Day surgery (SDC) | payer OTHER ==
[2023-01-11 10:39] VITALS: TEMP 97.1
[2023-01-11 10:49] VITALS: RESP 16
[2023-01-11 11:05] VITALS: BP 136/71; PULSE 54
== END | disposition home or self-care (01) ==
LOC: FECT 08:36
PROVIDERS: ATTEND Psychiatry & Neurology Psychiatry
PROC: GZB4ZZZ Other Electroconvulsive Therapy (ICD-10-PCS; principal; 2023-01-11 10:14)
DX: F31.63 Bipolar disorder, current episode mixed, severe, without psychotic features (principal)
CPT/HCPCS: 90870; 94760

== ENCOUNTER 2023-01-19 06:06 | Day surgery (SDC) | payer OTHER ==
[2023-01-12 17:10] VITALS: BMI 25.8
[2023-01-19 08:33] VITALS: RESP 18; TEMP 97.9
[2023-01-19 09:55] VITALS: BP 115/72; PULSE 58
== END 2023-01-19 09:59 | disposition home or self-care (01) ==
LOC: FECT 06:06
PROVIDERS: ATTEND Psychiatry & Neurology Psychiatry
PROC: GZB4ZZZ Other Electroconvulsive Therapy (ICD-10-PCS; principal; 2023-01-19 07:44)
DX: F31.5 Bipolar disorder, current episode depressed, severe, with psychotic features (principal)
CPT/HCPCS: 90870; 94760

== ENCOUNTER 2023-01-25 08:24 | Day surgery (SDC) | payer OTHER ==
[2023-01-22 16:06] VITALS: BMI 25.8
[2023-01-25 10:17] VITALS: TEMP 97.2
[2023-01-25 11:12] VITALS: BP 128/69; PULSE 61; RESP 18
== END 2023-01-25 11:25 | disposition home or self-care (01) ==
LOC: FECT 08:24
PROVIDERS: ATTEND Psychiatry & Neurology Psychiatry
PROC: GZB4ZZZ Other Electroconvulsive Therapy (ICD-10-PCS; principal; 2023-01-25 09:47)
DX: F31.9 Bipolar disorder, unspecified (principal)
CPT/HCPCS: 90870; 94760

== ENCOUNTER 2023-02-01 06:15 | Day surgery (SDC) | payer OTHER ==
[2023-01-26 08:03] VITALS: BMI 25.8
[2023-02-01] MEDS ORDERED: KETAMINE HCL 500 MG/10 ML VIAL ONE (07:55)
[2023-02-01 08:29] VITALS: TEMP 96.9
[2023-02-01 09:08] VITALS: RESP 18
[2023-02-01 10:30] VITALS: BP 140/80; PULSE 61
== END 2023-02-01 09:45 | disposition home or self-care (01) ==
LOC: FECT 06:15
PROVIDERS: ATTEND Psychiatry & Neurology Psychiatry
PROC: GZB4ZZZ Other Electroconvulsive Therapy (ICD-10-PCS; principal; 2023-02-01 08:07)
DX: F32.A Depression, unspecified (principal)
CPT/HCPCS: 90870; 94760

== ENCOUNTER 2023-02-09 08:49 | Day surgery (SDC) | payer OTHER ==
[2023-02-07 16:21] VITALS: BMI 25.8
[2023-02-09 11:31] VITALS: PULSE 60; RESP 16; TEMP 97.5
[2023-02-09 11:55] VITALS: BP 110/71
== END 2023-02-09 12:10 | disposition home or self-care (01) ==
LOC: FECT 08:49
PROVIDERS: ATTEND Psychiatry & Neurology Psychiatry
PROC: GZB4ZZZ Other Electroconvulsive Therapy (ICD-10-PCS; principal; 2023-02-09 10:42)
DX: F31.63 Bipolar disorder, current episode mixed, severe, without psychotic features (principal)
CPT/HCPCS: 90870; 94760

== ENCOUNTER 2023-02-16 08:57 | Day surgery (SDC) | payer OTHER ==
[2023-02-13 07:21] VITALS: BMI 25.8
[2023-02-16 10:56] VITALS: RESP 18
[2023-02-16 11:24] VITALS: BP 145/85; PULSE 59; TEMP 97.3
== END 2023-02-16 11:50 | disposition home or self-care (01) ==
LOC: FECT 08:57
PROVIDERS: ATTEND Psychiatry & Neurology Psychiatry
PROC: GZB4ZZZ Other Electroconvulsive Therapy (ICD-10-PCS; principal; 2023-02-16 10:05)
DX: F31.62 Bipolar disorder, current episode mixed, moderate (principal)
CPT/HCPCS: 90870; 94760

== ENCOUNTER 2023-02-20 07:34 | Day surgery (SDC) | payer OTHER ==
[2023-02-20 07:58] VITALS: BMI 25.7
[2023-02-20] MEDS ORDERED: KETAMINE HCL 500 MG/10 ML VIAL ONE (08:27)
[2023-02-20] MEDS ORDERED: LACTATED RINGERS SOLUTION 1,000 ML IV SCH (08:45)
[2023-02-20 09:16] VITALS: TEMP 97.3
[2023-02-20 09:50] VITALS: RESP 18
[2023-02-20 10:25] VITALS: BP 144/83; PULSE 59
== END 2023-02-20 10:20 | disposition home or self-care (01) ==
LOC: FECT 07:34
PROVIDERS: ATTEND Psychiatry & Neurology Psychiatry
PROC: GZB4ZZZ Other Electroconvulsive Therapy (ICD-10-PCS; principal; 2023-02-20 08:56)
DX: F31.9 Bipolar disorder, unspecified (principal)
CPT/HCPCS: 90870; 94760

== ENCOUNTER 2023-03-02 06:36 | Day surgery (SDC) | payer OTHER ==
[2023-02-21 17:25] VITALS: BMI 25.7
[2023-03-02] MEDS ORDERED: KETAMINE HCL 500 MG/10 ML VIAL ONE (08:03)
[2023-03-02 09:23] VITALS: RESP 18; TEMP 97.8
[2023-03-02 09:29] VITALS: BP 130/69; PULSE 59
== END 2023-03-02 09:35 | disposition home or self-care (01) ==
LOC: FECT 06:36
PROVIDERS: ATTEND Psychiatry & Neurology Psychiatry
PROC: GZB4ZZZ Other Electroconvulsive Therapy (ICD-10-PCS; principal; 2023-03-02 08:12)
DX: F31.62 Bipolar disorder, current episode mixed, moderate (principal)
CPT/HCPCS: 90870; 94760

== ENCOUNTER 2023-03-09 07:56 | Day surgery (SDC) | payer OTHER ==
[2023-03-06 09:09] VITALS: BMI 25.9
[2023-03-09] MEDS ORDERED: ONDANSETRON 4 MG/2 ML VIAL ONE (08:58)
[2023-03-09] MEDS ORDERED: PROPOFOL 20 ML ONE (08:58)
[2023-03-09] MEDS ORDERED: KETOROLAC TROMETHAMINE 30 MG/1 ML VIAL ONE (08:58)
[2023-03-09] MEDS ORDERED: SUCCINYLCHOLINE CHLORIDE 200 MG/10 ML SYRINGE ONE (08:58)
[2023-03-09] MEDS ORDERED: DEXAMETHASONE SOD PHOSPHATE 4 MG/1 ML VIAL ONE (08:58)
[2023-03-09 09:46] VITALS: TEMP 97.3
[2023-03-09 10:19] VITALS: RESP 18
[2023-03-09 11:31] VITALS: BP 140/80; PULSE 53
== END 2023-03-09 11:25 | disposition home or self-care (01) ==
LOC: FECT 07:56
PROVIDERS: ATTEND Psychiatry & Neurology Psychiatry
PROC: GZB4ZZZ Other Electroconvulsive Therapy (ICD-10-PCS; principal; 2023-03-09 09:25)
DX: F31.9 Bipolar disorder, unspecified (principal)
CPT/HCPCS: 90870; 94760

== ENCOUNTER 2023-03-23 08:18 | Day surgery (SDC) | payer OTHER ==
[2023-03-09 16:14] VITALS: BMI 25.9
[2023-03-23 10:57] VITALS: RESP 18; TEMP 97
[2023-03-23 11:42] VITALS: PULSE 59
[2023-03-23 11:45] VITALS: BP 134/80
== END 2023-03-23 11:35 | disposition home or self-care (01) ==
LOC: FECT 08:18
PROVIDERS: ATTEND Psychiatry & Neurology Psychiatry
PROC: GZB4ZZZ Other Electroconvulsive Therapy (ICD-10-PCS; principal; 2023-03-23 10:05)
DX: F31.9 Bipolar disorder, unspecified (principal)
CPT/HCPCS: 90870; 94760

== ENCOUNTER 2023-04-10 08:10 | Day surgery (SDC) | payer OTHER ==
[2023-03-28 18:12] VITALS: BMI 25.9
[2023-04-10] MEDS ORDERED: KETAMINE HCL 500 MG/10 ML VIAL ONE (08:59)
[2023-04-10 10:03] VITALS: RESP 18; TEMP 97.1
[2023-04-10 11:02] VITALS: BP 139/76; PULSE 56
== END 2023-04-10 11:00 | disposition home or self-care (01) ==
LOC: FECT 08:10
PROVIDERS: ATTEND Psychiatry & Neurology Psychiatry
PROC: GZB4ZZZ Other Electroconvulsive Therapy (ICD-10-PCS; principal; 2023-04-10 09:08)
DX: F31.9 Bipolar disorder, unspecified (principal)
CPT/HCPCS: 90870; 94760

== ENCOUNTER 2023-04-17 08:50 | Day surgery (SDC) | payer OTHER ==
[2023-04-11 07:48] VITALS: BMI 25.9
[2023-04-17] MEDS ORDERED: KETAMINE HCL 500 MG/10 ML VIAL ONE (10:01)
[2023-04-17 10:36] VITALS: TEMP 97.4
[2023-04-17 11:30] VITALS: BP 139/61; PULSE 52; RESP 18
== END 2023-04-17 11:30 | disposition home or self-care (01) ==
LOC: FECT 08:50
PROVIDERS: ATTEND Psychiatry & Neurology Psychiatry
PROC: GZB4ZZZ Other Electroconvulsive Therapy (ICD-10-PCS; principal; 2023-04-17 10:14)
DX: F31.9 Bipolar disorder, unspecified (principal)
CPT/HCPCS: 90870; 94760

== ENCOUNTER 2023-04-24 08:56 | Day surgery (SDC) | payer OTHER ==
[2023-04-19 12:54] VITALS: BMI 25.9
[2023-04-24] MEDS ORDERED: KETAMINE HCL 500 MG/10 ML VIAL ONE (09:49)
[2023-04-24 11:22] VITALS: BP 132/80; PULSE 50; RESP 19; TEMP 98
== END 2023-04-24 11:42 | disposition home or self-care (01) ==
LOC: FECT 08:56
PROVIDERS: ATTEND Psychiatry & Neurology Psychiatry
PROC: GZB4ZZZ Other Electroconvulsive Therapy (ICD-10-PCS; principal; 2023-04-24 10:11)
DX: F31.9 Bipolar disorder, unspecified (principal)
CPT/HCPCS: 90870; 94760

== ENCOUNTER 2023-05-11 08:32 | Day surgery (SDC) | payer OTHER ==
[2023-05-02 07:50] VITALS: BMI 25.9
[2023-05-11] MEDS ORDERED: KETAMINE HCL 500 MG/10 ML VIAL ONE (09:47)
[2023-05-11] MEDS ORDERED: PROPOFOL 20 ML ONE (09:50)
[2023-05-11 10:39] VITALS: RESP 18
[2023-05-11 11:02] VITALS: TEMP 97.4
[2023-05-11 11:32] VITALS: BP 128/74; PULSE 57
== END 2023-05-11 11:36 | disposition home or self-care (01) ==
LOC: FECT 08:32
PROVIDERS: ATTEND Psychiatry & Neurology Psychiatry
PROC: GZB4ZZZ Other Electroconvulsive Therapy (ICD-10-PCS; principal; 2023-05-11 10:03)
DX: F31.9 Bipolar disorder, unspecified (principal)
CPT/HCPCS: 90870; 93005; 94760

== ENCOUNTER 2023-05-18 09:05 | Day surgery (SDC) | payer OTHER ==
[2023-05-15 08:25] VITALS: BMI 25.9
[2023-05-18] MEDS ORDERED: KETAMINE HCL 500 MG/10 ML VIAL ONE (10:40)
[2023-05-18 11:52] VITALS: RESP 18; TEMP 97.5
[2023-05-18 12:12] VITALS: BP 127/72; PULSE 54
== END 2023-05-18 12:02 | disposition home or self-care (01) ==
LOC: FECT 09:05
PROVIDERS: ATTEND Psychiatry & Neurology Psychiatry
PROC: GZB4ZZZ Other Electroconvulsive Therapy (ICD-10-PCS; principal; 2023-05-18 10:58)
DX: F31.9 Bipolar disorder, unspecified (principal)
CPT/HCPCS: 90870; 94760

== ENCOUNTER 2023-05-25 08:11 | Day surgery (SDC) | payer OTHER ==
[2023-05-23 07:39] VITALS: BMI 26.6
[2023-05-25 10:28] VITALS: RESP 20; TEMP 97.5
[2023-05-25 10:54] VITALS: BP 135/78; PULSE 52
== END 2023-05-25 10:55 | disposition home or self-care (01) ==
LOC: FECT 08:11
PROVIDERS: ATTEND Psychiatry & Neurology Psychiatry
PROC: GZB4ZZZ Other Electroconvulsive Therapy (ICD-10-PCS; principal; 2023-05-25 09:25)
DX: F31.9 Bipolar disorder, unspecified (principal)
CPT/HCPCS: 90870; 94760

== ENCOUNTER 2023-06-15 07:53 | Day surgery (SDC) | payer OTHER ==
[2023-06-15 08:20] VITALS: BMI 26.6
[2023-06-15] MEDS ORDERED: DEXAMETHASONE SOD PHOSPHATE 4 MG/1 ML VIAL ONE (09:45)
[2023-06-15] MEDS ORDERED: KETOROLAC TROMETHAMINE 30 MG/1 ML VIAL ONE (09:45)
[2023-06-15] MEDS ORDERED: ONDANSETRON 4 MG/2 ML VIAL ONE (09:45)
[2023-06-15] MEDS ORDERED: KETAMINE HCL 500 MG/10 ML VIAL ONE (09:46)
[2023-06-15] MEDS ORDERED: PROPOFOL 20 ML ONE (09:46)
[2023-06-15] MEDS ORDERED: SUCCINYLCHOLINE CHLORIDE 200 MG/10 ML SYRINGE ONE (09:46)
[2023-06-15 10:11] VITALS: RESP 18; TEMP 97.7
[2023-06-15 10:26] VITALS: BP 123/63; PULSE 58
== END 2023-06-15 10:40 | disposition home or self-care (01) ==
LOC: FECT 07:53
PROVIDERS: ATTEND Psychiatry & Neurology Psychiatry
PROC: GZB4ZZZ Other Electroconvulsive Therapy (ICD-10-PCS; principal; 2023-06-15 09:13)
DX: F31.9 Bipolar disorder, unspecified (principal)
CPT/HCPCS: 90870; 94760

== ENCOUNTER 2023-06-22 07:06 | Day surgery (SDC) | payer OTHER ==
[2023-06-19 17:39] VITALS: BMI 26.6
[2023-06-22] MEDS ORDERED: KETAMINE HCL 500 MG/10 ML VIAL ONE (08:00)
[2023-06-22 09:17] VITALS: RESP 16; TEMP 98
[2023-06-22 09:49] VITALS: BP 143/81; PULSE 50
== END 2023-06-22 09:55 | disposition home or self-care (01) ==
LOC: FECT 07:06
PROVIDERS: ATTEND Student in an Organized Health Care Education/Training Program
PROC: GZB4ZZZ Other Electroconvulsive Therapy (ICD-10-PCS; principal; 2023-06-22 08:29)
DX: F31.9 Bipolar disorder, unspecified (principal)
CPT/HCPCS: 90870; 94760

== ENCOUNTER 2023-06-29 07:20 | Day surgery (SDC) | payer OTHER ==
[2023-06-25 08:34] VITALS: BMI 26.6
[2023-06-29] MEDS ORDERED: KETAMINE HCL 500 MG/10 ML VIAL ONE (08:49)
[2023-06-29 10:25] VITALS: RESP 18; TEMP 97.9
[2023-06-29 10:41] VITALS: BP 125/70; PULSE 58
== END 2023-06-29 10:45 | disposition home or self-care (01) ==
LOC: FECT 07:20
PROVIDERS: ATTEND Psychiatry & Neurology Psychiatry
PROC: GZB4ZZZ Other Electroconvulsive Therapy (ICD-10-PCS; principal; 2023-06-29 09:06)
DX: F31.62 Bipolar disorder, current episode mixed, moderate (principal)
CPT/HCPCS: 90870; 94760

== ENCOUNTER 2023-07-06 08:52 | Day surgery (SDC) | payer OTHER ==
[2023-06-29 14:58] VITALS: BMI 26.6
[2023-07-06 09:17] VITALS: RESP 16
[2023-07-06] MEDS ORDERED: KETAMINE HCL 500 MG/10 ML VIAL ONE (10:04)
[2023-07-06 11:15] VITALS: TEMP 97.9
[2023-07-06 12:16] VITALS: BP 128/64; PULSE 60
== END 2023-07-06 12:10 | disposition home or self-care (01) ==
LOC: FECT 08:52
PROVIDERS: ATTEND Psychiatry & Neurology Psychiatry
PROC: GZB4ZZZ Other Electroconvulsive Therapy (ICD-10-PCS; principal; 2023-07-06 10:15)
DX: F31.9 Bipolar disorder, unspecified (principal)
CPT/HCPCS: 90870; 94760

== ENCOUNTER 2023-07-20 08:48 | Day surgery (SDC) | payer OTHER ==
[2023-07-16 13:53] VITALS: BMI 26.6
[2023-07-20 12:05] VITALS: RESP 16
[2023-07-20 12:11] VITALS: BP 136/93; PULSE 69; TEMP 97.5
== END 2023-07-20 12:30 | disposition home or self-care (01) ==
LOC: FECT 08:48
PROVIDERS: ATTEND Student in an Organized Health Care Education/Training Program
PROC: GZB4ZZZ Other Electroconvulsive Therapy (ICD-10-PCS; principal; 2023-07-20 10:58)
DX: F31.9 Bipolar disorder, unspecified (principal)
CPT/HCPCS: 90870; 94760

== ENCOUNTER 2023-07-27 08:56 | Day surgery (SDC) | payer OTHER ==
[2023-07-25 15:17] VITALS: BMI 26.6
[2023-07-27] MEDS ORDERED: KETAMINE HCL 500 MG/10 ML VIAL ONE (10:37)
[2023-07-27 11:48] VITALS: RESP 18; TEMP 98
[2023-07-27 12:17] VITALS: BP 130/74; PULSE 68
== END 2023-07-27 12:10 | disposition home or self-care (01) ==
LOC: FECT 08:56
PROVIDERS: ATTEND Student in an Organized Health Care Education/Training Program
PROC: GZB4ZZZ Other Electroconvulsive Therapy (ICD-10-PCS; principal; 2023-07-27 11:01)
DX: F31.9 Bipolar disorder, unspecified (principal)
CPT/HCPCS: 90870; 94760

== ENCOUNTER 2023-08-10 08:03 | Day surgery (SDC) | payer OTHER ==
[2023-08-06 12:54] VITALS: BMI 26.6
[2023-08-10] MEDS ORDERED: KETAMINE HCL 100 MG/ML - 5ML VIAL ONE (08:56)
[2023-08-10 11:13] VITALS: RESP 18; TEMP 98.3
[2023-08-10 11:41] VITALS: BP 134/65; PULSE 66
== END 2023-08-10 11:30 | disposition home or self-care (01) ==
LOC: FECT 08:03
PROVIDERS: ATTEND Psychiatry & Neurology Psychiatry
PROC: GZB4ZZZ Other Electroconvulsive Therapy (ICD-10-PCS; principal; 2023-08-10 09:43)
DX: F31.9 Bipolar disorder, unspecified (principal)
CPT/HCPCS: 90870; 94760

== ENCOUNTER 2023-08-17 09:20 | Day surgery (SDC) | payer OTHER ==
[2023-08-14 10:52] VITALS: BMI 26.6
[2023-08-17] MEDS ORDERED: PROPOFOL 20 ML ONE (11:02)
[2023-08-17] MEDS ORDERED: SUCCINYLCHOLINE CHLORIDE 200 MG/10 ML SYRINGE ONE (11:02)
[2023-08-17] MEDS ORDERED: ONDANSETRON 4 MG/2 ML VIAL IVPUSH PRN (11:18)
[2023-08-17] MEDS ORDERED: KETOROLAC TROMETHAMINE 30 MG/1 ML VIAL ONE (11:22)
[2023-08-17] MEDS ORDERED: KETAMINE HCL 200 MG/20 ML VIAL ONE (11:22)
[2023-08-17] MEDS ORDERED: GLYCOPYRROLATE 0.2 MG/1 ML VIAL ONE (11:25)
[2023-08-17] MEDS ORDERED: LACTATED RINGERS SOLUTION 1,000 ML IV SCH (11:30)
[2023-08-17 12:30] VITALS: PULSE 56; RESP 18; TEMP 97.2
[2023-08-17 12:57] VITALS: BP 148/76
== END 2023-08-17 12:57 | disposition home or self-care (01) ==
LOC: FECT 09:20
PROVIDERS: ATTEND Student in an Organized Health Care Education/Training Program
PROC: GZB4ZZZ Other Electroconvulsive Therapy (ICD-10-PCS; principal; 2023-08-17 11:29)
DX: F31.9 Bipolar disorder, unspecified (principal)
CPT/HCPCS: 90870; 94760

== ENCOUNTER 2023-08-24 07:51 | Day surgery (SDC) | payer OTHER ==
[2023-08-20 14:37] VITALS: BMI 26.6
[2023-08-24] MEDS ORDERED: KETAMINE HCL 100 MG/ML - 5ML VIAL ONE (10:12)
[2023-08-24 11:14] VITALS: BP 136/69; TEMP 97.8
[2023-08-24 11:37] VITALS: PULSE 54; RESP 18
== END 2023-08-24 11:40 | disposition home or self-care (01) ==
LOC: FECT 07:51
PROVIDERS: ATTEND Student in an Organized Health Care Education/Training Program
PROC: GZB4ZZZ Other Electroconvulsive Therapy (ICD-10-PCS; principal; 2023-08-24 10:23)
DX: F31.62 Bipolar disorder, current episode mixed, moderate (principal)
CPT/HCPCS: 90870; 94760

== ENCOUNTER 2023-08-28 10:13 | Day surgery (SDC) | payer OTHER ==
[2023-08-28 10:46] VITALS: BMI 26.1
[2023-08-28] MEDS ORDERED: KETAMINE HCL 100 MG/ML - 5ML VIAL ONE (11:33)
[2023-08-28] MEDS ORDERED: METOPROLOL TARTRATE 5 MG/5 ML VIAL ONE (11:51)
[2023-08-28 12:11] VITALS: TEMP 97
[2023-08-28 12:46] VITALS: RESP 18
[2023-08-28 13:07] VITALS: BP 122/72; PULSE 63
== END 2023-08-28 13:10 | disposition home or self-care (01) ==
LOC: FECT 10:13
PROVIDERS: ATTEND Student in an Organized Health Care Education/Training Program
PROC: GZB4ZZZ Other Electroconvulsive Therapy (ICD-10-PCS; principal; 2023-08-28 11:48)
DX: F31.62 Bipolar disorder, current episode mixed, moderate (principal)
CPT/HCPCS: 90870; 94760

== ENCOUNTER 2023-09-07 06:56 | Day surgery (SDC) | payer OTHER ==
[2023-08-29 16:29] VITALS: BMI 26.1
[2023-09-07] MEDS ORDERED: KETAMINE HCL 100 MG/ML - 5ML VIAL ONE (08:02)
[2023-09-07 09:28] VITALS: TEMP 97.5
[2023-09-07 09:32] VITALS: BP 116/68; PULSE 55; RESP 18
[2023-09-07] MEDS ORDERED: ONDANSETRON 4 MG/2 ML VIAL IVPUSH PRN (12:13)
== END 2023-09-07 10:00 | disposition home or self-care (01) ==
LOC: FECT 06:56
PROVIDERS: ATTEND Student in an Organized Health Care Education/Training Program
PROC: GZB4ZZZ Other Electroconvulsive Therapy (ICD-10-PCS; principal; 2023-09-07 08:19)
DX: F31.9 Bipolar disorder, unspecified (principal)
CPT/HCPCS: 90870; 94760

== ENCOUNTER 2023-09-14 10:26 | Day surgery (SDC) | payer OTHER ==
[2023-09-07 14:00] VITALS: BMI 26.1
[2023-09-14] MEDS ORDERED: ONDANSETRON 4 MG/2 ML VIAL IVPUSH PRN (11:45)
[2023-09-14] MEDS ORDERED: LACTATED RINGERS SOLUTION 1,000 ML IV SCH (11:45)
[2023-09-14] MEDS ORDERED: KETAMINE HCL 100 MG/ML - 5ML VIAL ONE (11:53)
[2023-09-14 13:37] VITALS: BP 139/77; PULSE 51; RESP 18; TEMP 97.2
== END 2023-09-14 13:37 | disposition home or self-care (01) ==
LOC: FECT 10:26
PROVIDERS: ATTEND Student in an Organized Health Care Education/Training Program
PROC: GZB4ZZZ Other Electroconvulsive Therapy (ICD-10-PCS; principal; 2023-09-14 12:11)
DX: F31.62 Bipolar disorder, current episode mixed, moderate (principal)
CPT/HCPCS: 90870; 94760

== ENCOUNTER 2023-09-21 06:20 | Day surgery (SDC) | payer OTHER ==
[2023-09-17 13:30] VITALS: BMI 26.1
[2023-09-21] MEDS ORDERED: KETAMINE HCL 100 MG/ML - 5ML VIAL ONE (07:17)
[2023-09-21 08:26] VITALS: RESP 16; TEMP 98.2
[2023-09-21 09:05] VITALS: BP 133/58; PULSE 54
== END 2023-09-21 09:18 | disposition home or self-care (01) ==
LOC: FECT 06:20
PROVIDERS: ATTEND Psychiatry & Neurology Psychiatry
PROC: GZB4ZZZ Other Electroconvulsive Therapy (ICD-10-PCS; principal; 2023-09-21 07:30)
DX: F31.62 Bipolar disorder, current episode mixed, moderate (principal)
CPT/HCPCS: 90870; 94760

== ENCOUNTER → 2023-09-28 | Day surgery (SDC) | payer OTHER ==
[2023-09-21 10:16] VITALS: BMI 26.1
[~2023-09-28] MED LIST changes: +KETAMINE HCL 100 MG/ML - 5ML VIAL ONE; -LACTATED RINGERS SOLUTION 1,000 ML IV SCH
[2023-09-28 10:39] VITALS: BP 106/61; PULSE 54; RESP 18; TEMP 97.6
== END | disposition home or self-care (01) ==
LOC: FECT 07:58
PROVIDERS: ATTEND Student in an Organized Health Care Education/Training Program
PROC: GZB4ZZZ Other Electroconvulsive Therapy (ICD-10-PCS; principal; 2023-09-28 09:42)
DX: F31.62 Bipolar disorder, current episode mixed, moderate (principal)
CPT/HCPCS: 90870; 94760

== ENCOUNTER → 2023-10-05 | Day surgery (SDC) | payer OTHER ==
[2023-10-02 15:00] VITALS: BMI 26.1
[~2023-10-05] MED LIST changes: +LABETALOL HCL 5 MG/1 ML (100MG/20 ML VIAL) ONE
[2023-10-05 09:38] VITALS: RESP 16; TEMP 98.1
[2023-10-05 10:00] VITALS: BP 110/60; PULSE 60
== END | disposition home or self-care (01) ==
LOC: FECT 07:25
PROVIDERS: ATTEND Student in an Organized Health Care Education/Training Program
PROC: GZB4ZZZ Other Electroconvulsive Therapy (ICD-10-PCS; principal; 2023-10-05 08:46)
DX: F31.9 Bipolar disorder, unspecified (principal)
CPT/HCPCS: 90870; 94760

== ENCOUNTER 2023-10-26 09:28 | Day surgery (SDC) | payer OTHER ==
[2023-10-04 14:36] VITALS: BMI 26.1
[2023-10-26] MEDS ORDERED: KETAMINE HCL 100 MG/ML - 5ML VIAL ONE (10:56)
[2023-10-26 11:51] VITALS: TEMP 98.6
[2023-10-26 12:44] VITALS: BP 116/55; PULSE 52; RESP 17
== END 2023-10-26 12:44 | disposition home or self-care (01) ==
LOC: FECT 09:28
PROVIDERS: ATTEND Student in an Organized Health Care Education/Training Program
PROC: GZB4ZZZ Other Electroconvulsive Therapy (ICD-10-PCS; principal; 2023-10-26 12:00)
DX: F31.9 Bipolar disorder, unspecified (principal)
CPT/HCPCS: 90870; 94760

== ENCOUNTER 2023-11-02 07:47 | Day surgery (SDC) | payer OTHER ==
[2023-10-26 14:47] VITALS: BMI 26.1
[2023-11-02 10:39] VITALS: RESP 18; TEMP 97.6
[2023-11-02 10:55] VITALS: BP 117/70; PULSE 67
== END 2023-11-02 10:55 | disposition home or self-care (01) ==
LOC: FECT 07:47
PROVIDERS: ATTEND Student in an Organized Health Care Education/Training Program
PROC: GZB4ZZZ Other Electroconvulsive Therapy (ICD-10-PCS; principal; 2023-11-02 09:42)
DX: F31.62 Bipolar disorder, current episode mixed, moderate (principal)
CPT/HCPCS: 90870; 94760

== ENCOUNTER 2023-11-09 11:07 | Day surgery (SDC) | payer OTHER ==
[2023-11-02 16:22] VITALS: BMI 26.1
[2023-11-09] MEDS ORDERED: KETAMINE HCL 100 MG/ML - 5ML VIAL ONE (12:05)
[2023-11-09 12:35] VITALS: TEMP 97.8
[2023-11-09 13:29] VITALS: RESP 20
[2023-11-09 13:58] VITALS: BP 135/70; PULSE 56
== END 2023-11-09 13:50 | disposition home or self-care (01) ==
LOC: FECT 11:07
PROVIDERS: ATTEND Student in an Organized Health Care Education/Training Program
PROC: GZB4ZZZ Other Electroconvulsive Therapy (ICD-10-PCS; principal; 2023-11-09 12:18)
DX: F31.9 Bipolar disorder, unspecified (principal)
CPT/HCPCS: 90870; 93005; 93010; 94760

== ENCOUNTER 2023-11-16 09:27 | Day surgery (SDC) | payer OTHER ==
[2023-11-09 15:08] VITALS: BMI 26.1
[2023-11-16 11:55] VITALS: RESP 16
[2023-11-16 12:45] VITALS: PULSE 56; TEMP 97.7
[2023-11-16 13:09] VITALS: BP 138/84
== END 2023-11-16 12:55 | disposition home or self-care (01) ==
LOC: FECT 09:27
PROVIDERS: ATTEND Student in an Organized Health Care Education/Training Program
PROC: GZB4ZZZ Other Electroconvulsive Therapy (ICD-10-PCS; principal; 2023-11-16 11:13)
DX: F31.62 Bipolar disorder, current episode mixed, moderate (principal)
CPT/HCPCS: 90870; 94760

== ENCOUNTER 2023-11-23 09:32 | Day surgery (SDC) | payer OTHER ==
[2023-11-20 13:32] VITALS: BMI 26.1
[2023-11-23] MEDS ORDERED: KETAMINE HCL 100 MG/ML - 5ML VIAL ONE (10:56)
[2023-11-23 12:36] VITALS: RESP 18; TEMP 98
[2023-11-23 12:38] VITALS: BP 121/67; PULSE 55
== END 2023-11-23 12:35 | disposition home or self-care (01) ==
LOC: FECT 09:32
PROVIDERS: ATTEND Student in an Organized Health Care Education/Training Program
PROC: GZB4ZZZ Other Electroconvulsive Therapy (ICD-10-PCS; principal; 2023-11-23 11:12)
DX: F31.9 Bipolar disorder, unspecified (principal)
CPT/HCPCS: 90870; 94760

== ENCOUNTER → 2023-11-30 | Day surgery (SDC) | payer OTHER ==
[2023-11-26 14:39] VITALS: BMI 26.1
[~2023-11-30] MED LIST changes: -LABETALOL HCL 5 MG/1 ML (100MG/20 ML VIAL) ONE
[2023-11-30 12:01] VITALS: RESP 16
[2023-11-30 12:26] VITALS: PULSE 58; TEMP 97.8
[2023-11-30 12:38] VITALS: BP 141/85
== END | disposition home or self-care (01) ==
LOC: FECT 10:30
PROVIDERS: ATTEND Student in an Organized Health Care Education/Training Program
PROC: GZB4ZZZ Other Electroconvulsive Therapy (ICD-10-PCS; principal; 2023-11-30 11:18)
DX: F31.9 Bipolar disorder, unspecified (principal)
CPT/HCPCS: 90870; 94760

== ENCOUNTER 2023-12-07 10:01 | Day surgery (SDC) | payer OTHER ==
[2023-12-03 11:26] VITALS: BMI 26.1
[2023-12-07 13:44] VITALS: TEMP 97.1
[2023-12-07 14:12] VITALS: BP 139/61; PULSE 54; RESP 18
== END 2023-12-07 14:15 | disposition home or self-care (01) ==
LOC: FECT 10:01
PROVIDERS: ATTEND Student in an Organized Health Care Education/Training Program
PROC: GZB4ZZZ Other Electroconvulsive Therapy (ICD-10-PCS; principal; 2023-12-07 12:56)
DX: F31.62 Bipolar disorder, current episode mixed, moderate (principal)
CPT/HCPCS: 90870; 94760

== ENCOUNTER 2023-12-14 08:32 | Day surgery (SDC) | payer OTHER ==
[2023-12-14 09:14] VITALS: BMI 26.1
[2023-12-14 09:14] LABS: HEMATOCRIT 40.8 % (35.4-49); HEMOGLOBIN 13.2 G/dL (11.7-16.9); MCH 30.6 pg (25.7-33.7); MCHC 32.3 g/dl (32.0-35.9); MEAN CELL VOLUME 94.8 fl (80-96); MEAN PLT VOLUME 8.6 fl (7.5-11.1); PLATELET COUNT 221.1 10^3/uL (134-434); RDW 13.4 % (11.9-15.9); WHITE BLOOD COUNT 9.1 10^3/uL (4.0-10.8)
[2023-12-14 09:29] LABS: ALBUMIN 4.4 g/dl (3.4-5.0); BILIRUBIN,TOTAL 0.6 mg/dl (0.2-1); CALCIUM 10.1 mg/dl (8.5-10.1); POTASSIUM 4.9 mmol/L (3.5-5.1); TOT PROT 6.8 g/dl (6.4-8.2)
[2023-12-14 10:23] LABS: PLATELET ESTIMATE ADEQUATE
[2023-12-14 12:49] VITALS: PULSE 56
[2023-12-14 13:47] VITALS: TEMP 97.3
[2023-12-14 13:50] VITALS: BP 141/66; RESP 18
== END 2023-12-14 13:25 | disposition home or self-care (01) ==
LOC: FECT 08:32
PROVIDERS: ATTEND Student in an Organized Health Care Education/Training Program
PROC: GZB4ZZZ Other Electroconvulsive Therapy (ICD-10-PCS; principal; 2023-12-14 12:03)
DX: F31.9 Bipolar disorder, unspecified (principal)
CPT/HCPCS: 36415; 80053; 85025; 90870; 94760

== ENCOUNTER 2023-12-21 08:21 | Day surgery (SDC) | payer OTHER ==
[2023-12-17 16:32] VITALS: BMI 25.7
[2023-12-21] MEDS ORDERED: ACETAMINOPHEN 500 MG TABLET (FP) PO PRN (08:43)
[2023-12-21] MEDS ORDERED: ONDANSETRON 4 MG/2 ML VIAL IVPUSH PRN (08:43)
[2023-12-21] MEDS ORDERED: LACTATED RINGERS SOLUTION 1,000 ML IV SCH (08:45)
[2023-12-21 11:14] VITALS: PULSE 56
[2023-12-21 11:15] VITALS: RESP 18; TEMP 97.2
[2023-12-21 12:31] VITALS: BP 130/69
== END 2023-12-21 11:53 | disposition home or self-care (01) ==
LOC: FECT 08:21
PROVIDERS: ATTEND Student in an Organized Health Care Education/Training Program
PROC: GZB4ZZZ Other Electroconvulsive Therapy (ICD-10-PCS; principal; 2023-12-21 10:24)
DX: F31.9 Bipolar disorder, unspecified (principal)
CPT/HCPCS: 90870; 94760

== ENCOUNTER 2023-12-28 08:30 | Day surgery (SDC) | payer OTHER ==
[2023-12-28 08:54] VITALS: BMI 25.7
[2023-12-28 11:02] VITALS: RESP 18; TEMP 98
[2023-12-28 11:26] VITALS: BP 139/71; PULSE 54
== END 2023-12-28 11:45 | disposition home or self-care (01) ==
LOC: FECT 08:30
PROVIDERS: ATTEND Student in an Organized Health Care Education/Training Program
PROC: GZB4ZZZ Other Electroconvulsive Therapy (ICD-10-PCS; principal; 2023-12-28 10:25)
DX: F31.62 Bipolar disorder, current episode mixed, moderate (principal)
CPT/HCPCS: 90870; 94760

== ENCOUNTER 2024-01-04 09:54 | Day surgery (SDC) | payer OTHER ==
[2023-12-28 13:55] VITALS: BMI 25.7
[2024-01-04 12:54] VITALS: TEMP 97.8
[2024-01-04 12:59] VITALS: RESP 18
[2024-01-04 13:57] VITALS: BP 128/72; PULSE 61
== END 2024-01-04 13:30 | disposition home or self-care (01) ==
LOC: FECT 09:54
PROVIDERS: ATTEND Student in an Organized Health Care Education/Training Program
PROC: GZB4ZZZ Other Electroconvulsive Therapy (ICD-10-PCS; principal; 2024-01-04 11:58)
DX: F31.9 Bipolar disorder, unspecified (principal)
CPT/HCPCS: 90870; 94760

== ENCOUNTER 2024-01-11 09:09 | Day surgery (SDC) | payer OTHER ==
[2024-01-07 09:57] VITALS: BMI 25.7
[2024-01-11 10:30] VITALS: RESP 16
[2024-01-11 12:56] VITALS: BP 136/51; PULSE 50
[2024-01-11 13:41] VITALS: TEMP 97.6
== END 2024-01-11 13:05 | disposition home or self-care (01) ==
LOC: FECT 09:09
PROVIDERS: ATTEND Student in an Organized Health Care Education/Training Program
PROC: GZB4ZZZ Other Electroconvulsive Therapy (ICD-10-PCS; principal; 2024-01-11 11:40)
DX: F31.9 Bipolar disorder, unspecified (principal)
CPT/HCPCS: 90870; 94760

== ENCOUNTER 2024-01-25 09:29 | Day surgery (SDC) | payer OTHER ==
[2024-01-14 14:08] VITALS: BMI 25.7
[2024-01-25] MEDS ORDERED: KETAMINE HCL 100 MG/ML - 5ML VIAL ONE (10:50)
[2024-01-25] MEDS ORDERED: PROPOFOL 20 ML ONE (10:58)
[2024-01-25] MEDS ORDERED: ONDANSETRON 4 MG/2 ML VIAL ONE (10:59)
[2024-01-25] MEDS ORDERED: LIDOCAINE HCL/PF 2% SDV 5ML VIAL ONE (10:59)
[2024-01-25 11:37] VITALS: RESP 16
[2024-01-25 12:04] VITALS: TEMP 97.1
[2024-01-25 15:27] VITALS: BP 118/62; PULSE 52
== END 2024-01-25 12:50 | disposition home or self-care (01) ==
LOC: FECT 09:29
PROVIDERS: ATTEND Student in an Organized Health Care Education/Training Program
PROC: GZB4ZZZ Other Electroconvulsive Therapy (ICD-10-PCS; principal; 2024-01-25 11:04)
DX: F31.9 Bipolar disorder, unspecified (principal)
CPT/HCPCS: 90870; 94760

== ENCOUNTER 2024-02-08 06:33 | Day surgery (SDC) | payer OTHER ==
[2024-01-28 07:23] VITALS: BMI 25.7
[2024-02-08] MEDS ORDERED: KETAMINE HCL 100 MG/ML - 5ML VIAL ONE (07:44)
[2024-02-08 09:29] VITALS: BP 139/73; PULSE 48; RESP 16; TEMP 97.1
== END 2024-02-08 09:40 | disposition home or self-care (01) ==
LOC: FECT 06:33
PROVIDERS: ATTEND Student in an Organized Health Care Education/Training Program
PROC: GZB4ZZZ Other Electroconvulsive Therapy (ICD-10-PCS; principal; 2024-02-08 08:20)
DX: F31.62 Bipolar disorder, current episode mixed, moderate (principal)
CPT/HCPCS: 90870; 94760

== ENCOUNTER 2024-02-15 10:41 | Day surgery (SDC) | payer OTHER ==
[2024-02-11 08:26] VITALS: BMI 25.7
[2024-02-15] MEDS ORDERED: KETAMINE HCL 100 MG/ML - 5ML VIAL ONE (11:27)
[2024-02-15 12:54] VITALS: TEMP 97.2
[2024-02-15 13:28] VITALS: BP 122/80; PULSE 81; RESP 18
[2024-02-15] MEDS ORDERED: LACTATED RINGERS SOLUTION 1,000 ML IV SCH (13:45)
== END 2024-02-15 13:29 | disposition home or self-care (01) ==
LOC: FECT 10:41
PROVIDERS: ATTEND Student in an Organized Health Care Education/Training Program
PROC: GZB4ZZZ Other Electroconvulsive Therapy (ICD-10-PCS; principal; 2024-02-15 11:41)
DX: F31.62 Bipolar disorder, current episode mixed, moderate (principal)
CPT/HCPCS: 90870; 94760

== ENCOUNTER 2024-02-29 06:04 | Day surgery (SDC) | payer OTHER ==
[2024-02-29] MEDS ORDERED: KETAMINE HCL 100 MG/ML - 5ML VIAL ONE (06:50)
[2024-02-29 08:47] VITALS: TEMP 97.2
[2024-02-29 08:49] VITALS: BP 136/66; PULSE 58; RESP 17
== END 2024-02-29 08:40 | disposition home or self-care (01) ==
LOC: FECT 06:04
PROVIDERS: ATTEND Student in an Organized Health Care Education/Training Program
PROC: GZB4ZZZ Other Electroconvulsive Therapy (ICD-10-PCS; principal; 2024-02-29 07:23)
DX: F31.9 Bipolar disorder, unspecified (principal)
CPT/HCPCS: 90870; 94760

== ENCOUNTER → 2024-03-18 | Day surgery (SDC) | payer OTHER ==
[~2024-03-18] MED LIST changes: +ACETAMINOPHEN 325 MG TABLET (FP) PO PRN; +LACTATED RINGERS SOLUTION 1,000 ML IV SCH; +PROMETHAZINE HCL 25 MG/1 ML VIAL IVPB PRN
[2024-03-18 07:12] VITALS: BMI 26.9
[2024-03-18 08:46] VITALS: RESP 16
[2024-03-18 09:37] VITALS: BP 133/73; PULSE 51; TEMP 97.3
== END | disposition home or self-care (01) ==
LOC: FECT 06:50
PROVIDERS: ATTEND Student in an Organized Health Care Education/Training Program
PROC: GZB4ZZZ Other Electroconvulsive Therapy (ICD-10-PCS; principal; 2024-03-18 08:22)
DX: F31.9 Bipolar disorder, unspecified (principal)
CPT/HCPCS: 90870; 94760

== ENCOUNTER 2024-04-01 07:29 | Day surgery (SDC) | payer OTHER ==
[2024-03-28 13:22] VITALS: BMI 26.9
[2024-04-01] MEDS ORDERED: KETAMINE HCL 100 MG/ML - 5ML VIAL ONE (09:12)
[2024-04-01 09:55] VITALS: TEMP 97.7
[2024-04-01 10:37] VITALS: RESP 18
[2024-04-01 10:40] VITALS: BP 161/79; PULSE 52
== END 2024-04-01 10:45 | disposition home or self-care (01) ==
LOC: FECT 07:29
PROVIDERS: ATTEND Student in an Organized Health Care Education/Training Program
PROC: GZB4ZZZ Other Electroconvulsive Therapy (ICD-10-PCS; principal; 2024-04-01 09:27)
DX: F31.9 Bipolar disorder, unspecified (principal)
CPT/HCPCS: 90870; 94760

== ENCOUNTER 2024-04-08 10:21 | Day surgery (SDC) | payer OTHER ==
[2024-03-20 10:43] VITALS: BMI 26.9
[2024-04-08 10:34] VITALS: RESP 18
[2024-04-08] MEDS ORDERED: KETAMINE HCL 100 MG/ML - 5ML VIAL ONE (11:46)
[2024-04-08 12:56] VITALS: TEMP 97.8
[2024-04-08 13:42] VITALS: BP 147/74; PULSE 53
== END 2024-04-08 13:43 | disposition home or self-care (01) ==
LOC: FECT 10:21
PROVIDERS: ATTEND Psychiatry & Neurology Psychiatry
PROC: GZB4ZZZ Other Electroconvulsive Therapy (ICD-10-PCS; principal; 2024-04-08 12:00)
DX: F31.9 Bipolar disorder, unspecified (principal)
CPT/HCPCS: 90870; 94760

== ENCOUNTER 2024-04-22 08:25 | Day surgery (SDC) | payer OTHER ==
[2024-04-22 08:54] VITALS: BMI 25.9
[2024-04-22] MEDS ORDERED: KETAMINE HCL 100 MG/ML - 5ML VIAL ONE (09:57)
[2024-04-22] MEDS ORDERED: GLYCOPYRROLATE 0.2 MG/1 ML VIAL ONE (10:13)
[2024-04-22 10:46] VITALS: RESP 16
[2024-04-22 11:08] VITALS: TEMP 98
[2024-04-22 11:28] VITALS: BP 138/59; PULSE 48
== END 2024-04-22 11:30 | disposition home or self-care (01) ==
LOC: FECT 08:25
PROVIDERS: ATTEND Student in an Organized Health Care Education/Training Program
PROC: GZB4ZZZ Other Electroconvulsive Therapy (ICD-10-PCS; principal; 2024-04-22 10:18)
DX: F31.9 Bipolar disorder, unspecified (principal)
CPT/HCPCS: 90870; 94760

== ENCOUNTER 2024-05-06 11:32 | Day surgery (SDC) | payer OTHER ==
[2024-04-24 10:48] VITALS: BMI 25.9
[2024-05-06] MEDS ORDERED: KETAMINE HCL 100 MG/ML - 5ML VIAL ONE (12:19)
[2024-05-06 13:28] VITALS: RESP 16; TEMP 97.8
[2024-05-06 13:54] VITALS: BP 131/90; PULSE 50
== END 2024-05-06 14:22 | disposition home or self-care (01) ==
LOC: FECT 11:32
PROVIDERS: ATTEND Student in an Organized Health Care Education/Training Program
PROC: GZB4ZZZ Other Electroconvulsive Therapy (ICD-10-PCS; principal; 2024-05-06 12:33)
DX: F31.9 Bipolar disorder, unspecified (principal)
CPT/HCPCS: 90870; 93005; 93010; 94760

== ENCOUNTER 2024-05-20 08:35 | Day surgery (SDC) | payer OTHER ==
[2024-05-08 14:22] VITALS: BMI 25.9
[2024-05-20 08:50] VITALS: RESP 18
[2024-05-20] MEDS ORDERED: KETAMINE HCL 100 MG/ML - 5ML VIAL ONE (09:22)
[2024-05-20] MEDS ORDERED: ONDANSETRON 4 MG/2 ML VIAL ONE (09:34)
[2024-05-20 13:11] VITALS: BP 121/69; PULSE 59; TEMP 97.2
== END 2024-05-20 11:10 | disposition home or self-care (01) ==
LOC: FECT 08:35
PROVIDERS: ATTEND Student in an Organized Health Care Education/Training Program
PROC: GZB4ZZZ Other Electroconvulsive Therapy (ICD-10-PCS; principal; 2024-05-20 09:46)
DX: F31.9 Bipolar disorder, unspecified (principal)
CPT/HCPCS: 90870; 94760

== ENCOUNTER 2024-06-03 08:32 | Day surgery (SDC) | payer OTHER ==
[2024-06-03 08:51] VITALS: BMI 25.4
[2024-06-03] MEDS ORDERED: KETAMINE HCL 100 MG/ML - 5ML VIAL ONE (09:33)
[2024-06-03 10:58] VITALS: RESP 16; TEMP 97.5
[2024-06-03 11:14] VITALS: BP 140/75; PULSE 46
== END 2024-06-03 11:20 | disposition home or self-care (01) ==
LOC: FECT 08:32
PROVIDERS: ATTEND Student in an Organized Health Care Education/Training Program
PROC: GZB4ZZZ Other Electroconvulsive Therapy (ICD-10-PCS; principal; 2024-06-03 10:06)
DX: F31.9 Bipolar disorder, unspecified (principal)
CPT/HCPCS: 90870; 94760

== ENCOUNTER 2024-06-17 10:17 | Day surgery (SDC) | payer OTHER ==
[2024-06-09 13:27] VITALS: BMI 25.4
[2024-06-17] MEDS ORDERED: KETAMINE HCL 100 MG/ML - 5ML VIAL ONE (11:10)
[2024-06-17 11:33] LABS: ALBUMIN 4.5 g/dl (3.4-5.0); ALK PHOS 52 U/L (45-117); ANION GAP 5 mmol/L (4-13); BILIRUBIN,TOTAL 0.5 mg/dl (0.2-1); CALCIUM 9.9 mg/dl (8.5-10.1); CHLORIDE 106 mmol/L (98-107); CO2 29 mmol/L (21-32); GLUCOSE,RANDOM 102 mg/dl (74-106); POTASSIUM 5.1 mmol/L (3.5-5.1); SGOT/AST 11 U/L (15-37); SGPT/ALT 13 U/L (7-52); SODIUM 140 mmol/L (136-145); TOT PROT 6.2 g/dl (6.4-8.2)
[2024-06-17 12:57] VITALS: RESP 18; TEMP 97.3
[2024-06-17 13:01] LABS: BASO % 0.7 % (0-2.0); EOS % 2.6 % (0-4.5); HEMATOCRIT 40.2 % (35.4-49); HEMOGLOBIN 13.1 GM/dL (11.7-16.9); LYMPH % 20.8 % (8-40); MCH 30.8 pg (25.7-33.7); MCHC 32.7 g/dl (32.0-35.9); MEAN CELL VOLUME 94.1 fl (80-96); MEAN PLT VOLUME 8.6 fl (7.5-11.1); MONO % 9.6 % (3.8-10.2); NEUT % 66.3 % (42.8-82.8); PLATELET COUNT 232 10^3/uL (134-434); RBC 4.27 M/mm3 (4.00-5.60); RDW 13.5 % (11.9-15.9); WHITE BLOOD COUNT 5.1 K/mm3 (4.0-10.0)
[2024-06-17 13:39] VITALS: BP 132/74; PULSE 49
== END 2024-06-17 13:41 | disposition home or self-care (01) ==
LOC: FECT 10:17
PROVIDERS: ATTEND Student in an Organized Health Care Education/Training Program
PROC: GZB4ZZZ Other Electroconvulsive Therapy (ICD-10-PCS; principal; 2024-06-17 11:36)
DX: F31.9 Bipolar disorder, unspecified (principal)
CPT/HCPCS: 36415; 80053; 85025; 90870; 94760

== ENCOUNTER 2024-07-01 10:53 | Day surgery (SDC) | payer OTHER ==
[2024-07-01 11:25] VITALS: PULSE 48; RESP 16; BMI 25.3
[2024-07-01 16:25] VITALS: BP 130/80; TEMP 97.4
== END 2024-07-01 14:41 | disposition home or self-care (01) ==
LOC: FECT 10:53
PROVIDERS: ATTEND Student in an Organized Health Care Education/Training Program
PROC: GZB4ZZZ Other Electroconvulsive Therapy (ICD-10-PCS; principal; 2024-07-01 13:04)
DX: F31.9 Bipolar disorder, unspecified (principal)
CPT/HCPCS: 90870; 94760

== ENCOUNTER 2024-07-15 08:14 | Day surgery (SDC) | payer OTHER ==
[2024-07-11 10:57] VITALS: BMI 25.3
[2024-07-15] MEDS ORDERED: KETAMINE HCL 100 MG/ML - 5ML VIAL ONE (09:25)
[2024-07-15 10:54] VITALS: RESP 18; TEMP 97.5
[2024-07-15 11:23] VITALS: BP 145/89; PULSE 61
== END 2024-07-15 11:30 | disposition home or self-care (01) ==
LOC: FECT 08:14
PROVIDERS: ATTEND Student in an Organized Health Care Education/Training Program
PROC: GZB4ZZZ Other Electroconvulsive Therapy (ICD-10-PCS; principal; 2024-07-15 10:08)
DX: F31.9 Bipolar disorder, unspecified (principal)
CPT/HCPCS: 90870; 94760

== ENCOUNTER 2024-09-09 07:08 | Day surgery (SDC) | payer OTHER ==
[2024-09-09 07:23] VITALS: RESP 16; BMI 25.8
[2024-09-09] MEDS ORDERED: SUCCINYLCHOLINE CHLORIDE 200 MG/10 ML SYRINGE ONE (08:15)
[2024-09-09 09:18] VITALS: TEMP 97.1
[2024-09-09 09:54] VITALS: BP 157/93; PULSE 92
== END 2024-09-09 09:45 | disposition home or self-care (01) ==
LOC: FECT 07:08
PROVIDERS: ATTEND Student in an Organized Health Care Education/Training Program
PROC: GZB4ZZZ Other Electroconvulsive Therapy (ICD-10-PCS; principal; 2024-09-09 08:22)
DX: F31.62 Bipolar disorder, current episode mixed, moderate (principal)
CPT/HCPCS: 90870; 94760

== ENCOUNTER 2025-02-27 12:47 | Day surgery (SDC) | payer OTHER ==
[2025-02-09 07:21] VITALS: BMI 25.8
[2025-02-27 16:22] VITALS: PULSE 65; RESP 17; TEMP 97.7
[2025-02-27 16:29] VITALS: BP 150/86
== END 2025-02-27 16:15 | disposition home or self-care (01) ==
LOC: FECT 12:47
PROVIDERS: ATTEND Student in an Organized Health Care Education/Training Program
PROC: GZB4ZZZ Other Electroconvulsive Therapy (ICD-10-PCS; principal; 2025-02-27 14:30)
DX: F31.9 Bipolar disorder, unspecified (principal)
CPT/HCPCS: 90870; 94760